=== PATIENT | female | born 1960 | race Caucasian/White ===

== ENCOUNTER 2020-02-25 13:00 | Outpatient (REF) | payer OTHER, SELFPAY ==
[2020-02-25 15:24] LABS: MANUAL DIFF FLAG NO
[2020-02-25 15:33] LABS: Basophils Absolute Auto 0.1 X10*3/uL (0.0-0.2); Eosinophils Absolute Auto 0.2 X10*3/uL (0.0-0.4); Eosinophils Percent Auto 2.4 % (0-4); Hematocrit 38.7 % (37-47); Hemoglobin 12.6 g/dl (12.0-16.0); Imm Gran Abs Auto 0.01 X10*3/uL (0.00-0.03); Imm Gran Pct Auto 0.1 % (0.0-0.4); Lymphocytes Absolute Auto 3.2 X10*3/uL (1.2-4.9); Lymphocytes Percent Auto 40.5 % (20-40); Mean Corpuscular HGB Conc 32.6 g/dl (31.0-35.0); Mean Corpuscular Hemoglobin 29.9 pg (27.0-33.0); Mean Corpuscular Volume 91.9 fL (80-98); Mean Platelet Volume 9.6 fL (9.4-12.3); Monocytes Absolute Auto 0.6 X10*3/uL (0.1-1.2); Monocytes Percent Auto 8.1 % (2-11); Neutrophils Absolute Auto 3.8 X10*3/uL (2.0-8.3); Neutrophils Percent Auto 47.9 % (45-73); Platelet Count 258 X10*3/uL (160-400); Red Blood Count 4.21 X10*6/uL (4.20-5.50); Red Cell Distribution Width 12.5 % (11.0-16.0); White Blood Count 7.9 X10*3/uL (4.8-10.8)
[2020-02-25 16:00] LABS: Alanine Aminotransferase 16 U/L (0-31); Albumin Level 4.4 g/dL (3.5-5.0); Alkaline Phosphatase 98 U/L (39-117); Anion Gap 11 (12-20); Aspartate Amino Transferase 18 U/L (5-31); Bilirubin Total 0.4 mg/dL (0.0-1.0); Blood Urea Nitrogen 13 mg/dL (9-16); C Reactive Protein 0.12 mg/dL (< or = 0.50); Calcium 9.5 mg/dL (8.4-10.2); Carbon Dioxide 28 mmol/L (22-29); Chloride 106 mmol/L (96-108); Estimated Glomerular Filt Rate > 60; Glucose Random 90 mg/dL (60-115); Potassium 4.7 mmol/l (3.3-5.1); Sodium 140 mmol/L (135-145); Total Protein 7.1 g/dL (6.5-8.0)
[2020-02-25 16:56] LABS: Erythrocyte Sedimentation Rate 11 MM/HR (0-20)
== END 2020-02-25 13:01 | disposition home or self-care (01) ==
LOC: HO.LAB 13:00
PROVIDERS: PCP Nurse Practitioner Family; Referring Provider Nurse Practitioner Family; Visit Provider Student in an Organized Health Care Education/Training Program
DX: M06.00 Rheumatoid arthritis without rheumatoid factor, unspecified site (principal); R76.8 Other specified abnormal immunological findings in serum; E55.9 Vitamin D deficiency, unspecified; M54.9 Dorsalgia, unspecified; Z87.891 Personal history of nicotine dependence; Z79.899 Other long term (current) drug therapy
CPT/HCPCS: 36415; 80053; 85025; 85652; 86140; 99212

== ENCOUNTER 2020-02-27 09:12 | Outpatient (REF) | payer OTHER, SELFPAY ==
--- NOTE | 2020-02-27 09:14 | XR_ITS ---
EXAMINATION: XR THORACOLUMBAR SPINE CLINICAL INFORMATION: M54.9 - Dorsalgia, unspecified COMPARISON: Radiographs cervical spine and lumbar spine 02/27/2020 TECHNIQUE: AP and lateral views thoracic spine are obtained. FINDINGS: There is normal thoracic segmentation with 12 rib-bearing thoracic vertebrae of normal height and normal thoracic kyphosis. There is no thoracic vertebral compression, spondylolisthesis, destructive process, or paraspinal soft tissue swelling. There is mild degenerative disc changes with borderline disc narrowing and multilevel vertebral spurring, greatest anteriorly at approximately T9-T10. XR/XR thoracic spine 2V IMPRESSION: 1. Thoracic vertebral spurring. Mild degenerative disc changes. 2. No thoracic vertebral compression, spondylolisthesis, destructive process.
--- NOTE | 2020-02-27 09:17 | XR_ITS ---
EXAMINATION: XR LUMBOSACRAL SPINE CLINICAL INFORMATION: M54.9 - Dorsalgia, unspecified COMPARISON: Dorsal spine 02/27/2020 TECHNIQUE: Three views of the lumbosacral spine. FINDINGS: There is normal lumbar segmentation with 5 nonrib-bearing lumbar vertebrae of normal height and normal lumbar lordosis. There is no lumbar vertebral compression, spondylolisthesis, or focal disc narrowing. No destructive process. There are mild degenerative changes lumbosacral facets. The SI joints and visualized sacrum are unremarkable. XR/XR lumbar spine 2-3V IMPRESSION: 1. No lumbar vertebral compression, spondylolisthesis, or focal disc narrowing. 2. Mild facet degeneration lumbosacral junction.
--- NOTE | 2020-02-27 09:17 | XR_ITS ---
EXAMINATION: XR CERVICAL SPINE CLINICAL INFORMATION: M54.9 - Dorsalgia, unspecified COMPARISON: Thoracic spine 02/27/2020 TECHNIQUE: Cervical spine is imaged in 4 views: AP, lateral, odontoid, Fuchs. FINDINGS: There are multilevel degenerative disc changes with disc narrowing and endplate sclerosis and vertebral spurring C4-C5, C5-C6, and C6-C7. There are associated partially bridging anterior osteophytes and smaller posterior osteophytes at these levels. 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 There is a mild spondylolisthesis at C2-C3 of under 3 mm. The vertebral bodies are normal in height. There is no vertebral compression or destructive process or prevertebral soft tissue swelling. The odontoid appears intact. XR/XR cervical spine 2V IMPRESSION: 1. Degenerative disc changes C4-C7. 2. Partial fusion C3-C4. 3. Borderline spondylolisthesis C2-C3, under 3 mm.
== END 2020-02-27 09:13 | disposition home or self-care (01) ==
LOC: HO.XRAY 09:12
PROVIDERS: Visit Provider Student in an Organized Health Care Education/Training Program
DX: M54.9 Dorsalgia, unspecified (principal)
CPT/HCPCS: 72040; 72070; 72100

== ENCOUNTER 2020-08-06 09:09 | Outpatient (REF) | payer OTHER, SELFPAY ==
[2020-08-06 11:08] LABS: MANUAL DIFF FLAG NO
[2020-08-06 11:17] LABS: Basophils Absolute Auto 0.1 X10*3/uL (0.0-0.2); Eosinophils Absolute Auto 0.2 X10*3/uL (0.0-0.4); Eosinophils Percent Auto 2.9 % (0-4); Hematocrit 38.2 % (37-47); Hemoglobin 12.8 g/dl (12.0-16.0); Imm Gran Abs Auto 0.02 X10*3/uL (0.00-0.03); Imm Gran Pct Auto 0.2 % (0.0-0.4); Lymphocytes Absolute Auto 2.8 X10*3/uL (1.2-4.9); Lymphocytes Percent Auto 33.7 % (20-40); Mean Corpuscular HGB Conc 33.5 g/dl (31.0-35.0); Mean Corpuscular Volume 89.7 fL (80-98); Monocytes Absolute Auto 0.5 X10*3/uL (0.1-1.2); Monocytes Percent Auto 5.5 % (2-11); Neutrophils Absolute Auto 4.8 X10*3/uL (2.0-8.3); Neutrophils Percent Auto 56.7 % (45-73); Platelet Count 244 X10*3/uL (160-400); Red Blood Count 4.26 X10*6/uL (4.20-5.50); Red Cell Distribution Width 12.6 % (11.0-16.0); White Blood Count 8.4 X10*3/uL (4.8-10.8)
[2020-08-06 11:33] LABS: Alanine Aminotransferase 14 U/L (0-31); Albumin Level 4.3 g/dL (3.5-5.0); Alkaline Phosphatase 89 U/L (39-117); Anion Gap 12 (12-20); Aspartate Amino Transferase 14 U/L (5-31); Bilirubin Total 0.4 mg/dL (0.0-1.0); Blood Urea Nitrogen 24 mg/dL (9-16); C Reactive Protein 0.11 mg/dL (< or = 0.50); Calcium 9.4 mg/dL (8.4-10.2); Carbon Dioxide 27 mmol/L (22-29); Chloride 107 mmol/L (96-108); Estimated Glomerular Filt Rate > 60; Glucose Random 94 mg/dL (60-115); Potassium 4.2 mmol/L (3.3-5.1); Sodium 142 mmol/L (135-145)
[2020-08-06 12:28] LABS: Erythrocyte Sedimentation Rate 7 MM/HR (0-20)
== END 2020-08-06 09:10 | disposition home or self-care (01) ==
LOC: HO.LAB 09:09
PROVIDERS: PCP Nurse Practitioner Family; Visit Provider Student in an Organized Health Care Education/Training Program
DX: M06.00 Rheumatoid arthritis without rheumatoid factor, unspecified site (principal); R20.0 Anesthesia of skin; E55.9 Vitamin D deficiency, unspecified; Z83.79 Family history of other diseases of the digestive system; Z87.891 Personal history of nicotine dependence; Z90.710 Acquired absence of both cervix and uterus; Z79.899 Other long term (current) drug therapy
CPT/HCPCS: 36415; 80053; 85025; 85652; 86140; 99212

== ENCOUNTER 2021-02-04 14:16 | Outpatient (REF) | payer OTHER, SELFPAY ==
[2021-02-04 14:47] LABS: MANUAL DIFF FLAG NO
[2021-02-04 15:25] LABS: Basophils Absolute Auto 0.1 X10*3/uL (0.0-0.2); Eosinophils Absolute Auto 0.2 X10*3/uL (0.0-0.4); Eosinophils Percent Auto 2.6 % (0-4); Hematocrit 39.1 % (37-47); Hemoglobin 12.9 g/dl (12.0-16.0); Imm Gran Abs Auto 0.02 X10*3/uL (0.00-0.03); Imm Gran Pct Auto 0.2 % (0.0-0.4); Lymphocytes Absolute Auto 3.8 X10*3/uL (1.2-4.9); Lymphocytes Percent Auto 45.4 % (20-40); Mean Corpuscular Hemoglobin 29.7 pg (27.0-33.0); Mean Corpuscular Volume 89.9 fL (80-98); Mean Platelet Volume 9.3 fL (9.4-12.3); Monocytes Absolute Auto 0.6 X10*3/uL (0.1-1.2); Monocytes Percent Auto 7.1 % (2-11); Neutrophils Absolute Auto 3.7 X10*3/uL (2.0-8.3); Neutrophils Percent Auto 43.7 % (45-73); Platelet Count 304 X10*3/uL (160-400); Red Blood Count 4.35 X10*6/uL (4.20-5.50); Red Cell Distribution Width 12.5 % (11.0-16.0); White Blood Count 8.4 X10*3/uL (4.8-10.8)
[2021-02-04 15:43] LABS: Alanine Aminotransferase 15 U/L (0-31); Albumin Level 4.4 g/dL (3.5-5.0); Alkaline Phosphatase 100 U/L (39-117); Anion Gap 12 (12-20); Aspartate Amino Transferase 15 U/L (5-31); Bilirubin Total 0.3 mg/dL (0.0-1.0); Blood Urea Nitrogen 17 mg/dL (9-16); C Reactive Protein 0.18 mg/dL (< or = 0.50); Calcium 10.1 mg/dL (8.4-10.2); Carbon Dioxide 27 mmol/L (22-29); Chloride 107 mmol/L (96-108); Estimated Glomerular Filt Rate > 60; Glucose Random 94 mg/dL (60-115); Potassium 4.6 mmol/L (3.3-5.1); Sodium 141 mmol/L (135-145); Total Protein 7.4 g/dL (6.5-8.0)
[2021-02-04 16:29] LABS: Erythrocyte Sedimentation Rate 12 MM/HR (0-20)
== END 2021-02-04 14:17 | disposition home or self-care (01) ==
LOC: HO.LAB 14:16
PROVIDERS: PCP Nurse Practitioner Family; Visit Provider Nurse Practitioner Family
DX: M06.00 Rheumatoid arthritis without rheumatoid factor, unspecified site (principal)
CPT/HCPCS: 36415; 80053; 85025; 85652; 86140

== ENCOUNTER → 2021-03-10 12:13 | Outpatient (BNVA) | payer OTHER, SELFPAY | PROVIDERS: PCP Nurse Practitioner Family; Visit Provider Nurse Practitioner Family | DX: M54.9 Dorsalgia, unspecified (principal); M06.00 Rheumatoid arthritis without rheumatoid factor, unspecified site; R20.0 Anesthesia of skin; Z79.899 Other long term (current) drug therapy | CPT/HCPCS: 99212 ==

== ENCOUNTER 2021-04-22 07:41 | Outpatient (REF) | payer OTHER, SELFPAY ==
--- NOTE | 2021-04-22 07:47 | EMG_ITS ---
Bilateral median and ulnar motor and sensory studies were performed. Bilateral radial sensory studies were performed and paraspinal muscles were tested with a needle. IMPRESSION: 1. [id number] bilateral median neuropathy across carpal tunnel, which was somewhat more pronounced in the right hand. 2. Mild bilateral ulnar neuropathy across elbow. MD ALMA Horta/JANESSA / [id number]
== END 2021-04-22 07:42 | disposition home or self-care (01) ==
LOC: HO.NEURO 07:41
PROVIDERS: Visit Provider Student in an Organized Health Care Education/Training Program
DX: R20.0 Anesthesia of skin (principal); G56.13 Other lesions of median nerve, bilateral upper limbs; G56.23 Lesion of ulnar nerve, bilateral upper limbs
CPT/HCPCS: 95886; 95911

== ENCOUNTER 2021-06-07 10:27 | Outpatient (REF) | payer OTHER, SELFPAY ==
[2021-06-07 10:53] LABS: MANUAL DIFF FLAG NO
[2021-06-07 11:16] LABS: Basophils Absolute Auto 0.1 X10*3/uL (0.0-0.2); Basophils Percent Auto 0.7 % (0-2); Eosinophils Absolute Auto 0.3 X10*3/uL (0.0-0.4); Eosinophils Percent Auto 2.5 % (0-4); Hemoglobin 13.3 g/dl (12.0-16.0); Imm Gran Abs Auto 0.04 X10*3/uL (0.00-0.03); Imm Gran Pct Auto 0.4 % (0.0-0.4); Lymphocytes Absolute Auto 4.2 X10*3/uL (1.2-4.9); Lymphocytes Percent Auto 40.6 % (20-40); Mean Corpuscular HGB Conc 32.4 g/dl (31.0-35.0); Mean Corpuscular Hemoglobin 29.2 pg (27.0-33.0); Mean Corpuscular Volume 90.1 fL (80.0-98.0); Mean Platelet Volume 9.1 fL (9.4-12.3); Monocytes Absolute Auto 0.7 X10*3/uL (0.1-1.2); Monocytes Percent Auto 7.2 % (2-11); Neutrophils Percent Auto 48.6 % (45-73); Platelet Count 280 X10*3/uL (160-400); Red Blood Count 4.55 X10*6/uL (4.20-5.50); Red Cell Distribution Width 12.9 % (11.0-16.0); White Blood Count 10.3 X10*3/uL (4.8-10.8)
[2021-06-07 11:45] LABS: Alanine Aminotransferase 15 U/L (0-31); Albumin Level 4.3 g/dL (3.5-5.0); Alkaline Phosphatase 88 U/L (39-117); Anion Gap 11 (12-20); Aspartate Amino Transferase 15 U/L (5-31); Bilirubin Total 0.4 mg/dL (0.0-1.0); Blood Urea Nitrogen 23 mg/dL (9-16); C Reactive Protein 0.05 mg/dL (< or = 0.50); Calcium 10.2 mg/dL (8.4-10.2); Carbon Dioxide 28 mmol/L (22-29); Chloride 105 mmol/L (96-108); Estimated Glomerular Filt Rate > 60; Glucose Random 95 mg/dL (60-115); Potassium 4.8 mmol/L (3.3-5.1); Sodium 139 mmol/L (135-145); Total Protein 7.3 g/dL (6.5-8.0)
[2021-06-07 11:53] LABS: Erythrocyte Sedimentation Rate 10 MM/HR (0-20)
== END 2021-06-07 10:28 | disposition home or self-care (01) ==
LOC: HO.LAB 10:27
PROVIDERS: Visit Provider Nurse Practitioner Family
DX: M06.00 Rheumatoid arthritis without rheumatoid factor, unspecified site (principal)
CPT/HCPCS: 36415; 80053; 85025; 85652; 86140

== ENCOUNTER → 2021-06-10 09:42 | Outpatient (BNVA) | payer OTHER, SELFPAY | PROVIDERS: PCP Nurse Practitioner Family; Visit Provider Nurse Practitioner Family | DX: M06.00 Rheumatoid arthritis without rheumatoid factor, unspecified site (principal); M54.9 Dorsalgia, unspecified; R20.0 Anesthesia of skin; Z79.899 Other long term (current) drug therapy | CPT/HCPCS: 99212 ==

== ENCOUNTER 2021-08-31 11:21 | Outpatient (REF) | payer OTHER, SELFPAY ==
[2021-08-31 11:30] LABS: MANUAL DIFF FLAG NO
[2021-08-31 12:10] LABS: Basophils Absolute Auto 0.1 X10*3/uL (0.0-0.2); Basophils Percent Auto 1.3 % (0-2); Eosinophils Absolute Auto 0.3 X10*3/uL (0.0-0.4); Eosinophils Percent Auto 4.1 % (0-4); Hematocrit 39.9 % (37.0-47.0); Hemoglobin 12.8 g/dl (12.0-16.0); Imm Gran Abs Auto 0.02 X10*3/uL (0.00-0.03); Imm Gran Pct Auto 0.3 % (0.0-0.4); Lymphocytes Absolute Auto 2.8 X10*3/uL (1.2-4.9); Lymphocytes Percent Auto 36.9 % (20-40); Mean Corpuscular HGB Conc 32.1 g/dl (31.0-35.0); Mean Corpuscular Hemoglobin 29.4 pg (27.0-33.0); Mean Corpuscular Volume 91.7 fL (80.0-98.0); Mean Platelet Volume 9.5 fL (9.4-12.3); Monocytes Absolute Auto 0.6 X10*3/uL (0.1-1.2); Monocytes Percent Auto 7.6 % (2-11); Neutrophils Absolute Auto 3.8 x10*3/uL (2.0-8.3); Neutrophils Percent Auto 49.8 % (45-73); Platelet Count 273 X10*3/uL (160-400); Red Blood Count 4.35 X10*6/uL (4.20-5.50); Red Cell Distribution Width 13.8 % (11.0-16.0); White Blood Count 7.7 X10*3/uL (4.8-10.8)
[2021-08-31 12:44] LABS: Alanine Aminotransferase 23 U/L (0-31); Albumin Level 4.3 g/dL (3.5-5.0); Alkaline Phosphatase 94 U/L (39-117); Anion Gap 12 (12-20); Aspartate Amino Transferase 20 U/L (5-31); Bilirubin Total 0.4 mg/dL (0.0-1.0); Blood Urea Nitrogen 15 mg/dL (9-16); C Reactive Protein 0.09 mg/dL (< or = 0.50); Calcium 10.3 mg/dL (8.4-10.2); Carbon Dioxide 30 mmol/L (22-29); Chloride 105 mmol/L (96-108); Estimated Glomerular Filt Rate > 60; Glucose Random 81 mg/dL (60-115); Potassium 4.6 mmol/L (3.3-5.1); Sodium 142 mmol/L (135-145); Total Protein 7.1 g/dL (6.5-8.0)
[2021-08-31 13:02] LABS: Erythrocyte Sedimentation Rate 10 MM/HR (0-20)
== END 2021-08-31 11:22 | disposition home or self-care (01) ==
LOC: HO.LAB 11:21
PROVIDERS: PCP Nurse Practitioner Family; Visit Provider Nurse Practitioner Family
DX: M06.00 Rheumatoid arthritis without rheumatoid factor, unspecified site (principal)
CPT/HCPCS: 36415; 80053; 85025; 85652; 86140

== ENCOUNTER 2021-09-08 10:20 | Outpatient (REF) | payer OTHER, SELFPAY ==
[2021-09-08 12:08] LABS: Alanine Aminotransferase 43 U/L (0-31); Albumin Level 4.2 g/dL (3.5-5.0); Alkaline Phosphatase 92 U/L (39-117); Anion Gap 11 (12-20); Aspartate Amino Transferase 26 U/L (5-31); Bilirubin Total 0.3 mg/dL (0.0-1.0); Blood Urea Nitrogen 21 mg/dL (9-16); Calcium 10.1 mg/dL (8.4-10.2); Carbon Dioxide 27 mmol/L (22-29); Chloride 107 mmol/L (96-108); Estimated Glomerular Filt Rate > 60; Glucose Random 76 mg/dL (60-115); Potassium 4.5 mmol/L (3.3-5.1); Sodium 140 mmol/L (135-145); Total Protein 6.6 g/dL (6.5-8.0)
[2021-09-09 14:46] LABS: Calcium (PTHI) 9.5 mg/dL (8.6-10.4); PTHI 30 pg/mL (16-77)
== END 2021-09-08 10:21 | disposition home or self-care (01) ==
LOC: HO.LAB 10:20
PROVIDERS: Visit Provider Nurse Practitioner Family
DX: M06.00 Rheumatoid arthritis without rheumatoid factor, unspecified site (principal); M47.9 Spondylosis, unspecified; E83.52 Hypercalcemia; R20.0 Anesthesia of skin; L98.9 Disorder of the skin and subcutaneous tissue, unspecified; Z79.899 Other long term (current) drug therapy
CPT/HCPCS: 36415; 80053; 83970; 99212

== ENCOUNTER 2021-12-10 11:03 | Outpatient (REF) | payer OTHER, SELFPAY ==
[2021-12-10 11:13] LABS: MANUAL DIFF FLAG NO
[2021-12-10 11:30] LABS: Basophils Absolute Auto 0.1 X10*3/uL (0.0-0.2); Basophils Percent Auto 0.9 % (0-2); Eosinophils Absolute Auto 0.3 X10*3/uL (0.0-0.4); Eosinophils Percent Auto 2.9 % (0-4); Hematocrit 37.6 % (37.0-47.0); Hemoglobin 12.4 g/dl (12.0-16.0); Imm Gran Abs Auto 0.03 X10*3/uL (0.00-0.03); Imm Gran Pct Auto 0.3 % (0.0-0.4); Lymphocytes Absolute Auto 2.9 X10*3/uL (1.2-4.9); Lymphocytes Percent Auto 32.6 % (20-40); Mean Corpuscular Hemoglobin 30.3 pg (27.0-33.0); Mean Corpuscular Volume 91.9 fL (80.0-98.0); Mean Platelet Volume 9.2 fL (9.4-12.3); Monocytes Absolute Auto 0.6 X10*3/uL (0.1-1.2); Monocytes Percent Auto 6.7 % (2-11); Neutrophils Percent Auto 56.6 % (45-73); Platelet Count 235 X10*3/uL (160-400); Red Blood Count 4.09 X10*6/uL (4.20-5.50); Red Cell Distribution Width 13.6 % (11.0-16.0); White Blood Count 8.9 X10*3/uL (4.8-10.8)
[2021-12-10 12:03] LABS: Alanine Aminotransferase 15 U/L (0-31); Aspartate Amino Transferase 15 U/L (5-31); C Reactive Protein 0.18 mg/dL (< or = 0.50); Estimated Glomerular Filt Rate > 60
[2021-12-10 12:45] LABS: Erythrocyte Sedimentation Rate 12 MM/HR (0-20)
== END 2021-12-10 11:04 | disposition home or self-care (01) ==
LOC: HO.LAB 11:03
PROVIDERS: Visit Provider Internal Medicine Rheumatology
DX: M06.00 Rheumatoid arthritis without rheumatoid factor, unspecified site (principal); Z79.899 Other long term (current) drug therapy
CPT/HCPCS: 36415; 82565; 84450; 84460; 85025; 85652; 86140

== ENCOUNTER → 2021-12-16 10:32 | Outpatient (BNVA) | payer OTHER, SELFPAY | PROVIDERS: PCP Nurse Practitioner Family; Visit Provider Nurse Practitioner Family | DX: M06.00 Rheumatoid arthritis without rheumatoid factor, unspecified site (principal); R20.0 Anesthesia of skin; M54.9 Dorsalgia, unspecified; E83.52 Hypercalcemia; Z79.899 Other long term (current) drug therapy | CPT/HCPCS: 99212 ==

== ENCOUNTER 2022-03-16 09:28 | Outpatient (REF) | payer OTHER, SELFPAY ==
[2022-03-16 09:46] LABS: MANUAL DIFF FLAG NO
[2022-03-16 10:32] LABS: Basophils Absolute Auto 0.1 X10*3/uL (0.0-0.2); Basophils Percent Auto 0.9 % (0-2); Eosinophils Absolute Auto 0.2 X10*3/uL (0.0-0.4); Eosinophils Percent Auto 3.1 % (0-4); Hematocrit 38.7 % (37.0-47.0); Hemoglobin 12.8 g/dl (12.0-16.0); Imm Gran Abs Auto 0.03 X10*3/uL (0.00-0.03); Imm Gran Pct Auto 0.4 % (0.0-0.4); Lymphocytes Absolute Auto 2.9 X10*3/uL (1.2-4.9); Lymphocytes Percent Auto 37.1 % (20-40); Mean Corpuscular HGB Conc 33.1 g/dl (31.0-35.0); Mean Corpuscular Volume 90.8 fL (80.0-98.0); Mean Platelet Volume 9.3 fL (9.4-12.3); Monocytes Absolute Auto 0.6 X10*3/uL (0.1-1.2); Monocytes Percent Auto 7.7 % (2-11); Neutrophils Percent Auto 50.8 % (45-73); Platelet Count 248 X10*3/uL (160-400); Red Blood Count 4.26 X10*6/uL (4.20-5.50); Red Cell Distribution Width 13.1 % (11.0-16.0); White Blood Count 7.8 X10*3/uL (4.8-10.8)
[2022-03-16 11:13] LABS: Erythrocyte Sedimentation Rate 9 MM/HR (0-20)
[2022-03-16 11:44] LABS: Alanine Aminotransferase 16 U/L (0-31); Albumin Level 4.2 g/dL (3.5-5.0); Alkaline Phosphatase 95 U/L (39-117); Anion Gap 12 (12-20); Aspartate Amino Transferase 16 U/L (5-31); Bilirubin Total 0.4 mg/dL (0.0-1.0); Blood Urea Nitrogen 18 mg/dL (9-16); C Reactive Protein 0.13 mg/dL (< or = 0.50); Calcium 9.4 mg/dL (8.4-10.2); Carbon Dioxide 27 mmol/L (22-29); Chloride 106 mmol/L (96-108); Estimated Glomerular Filt Rate > 60; Glucose Random 96 mg/dL (60-115); Potassium 4.4 mmol/L (3.3-5.1); Sodium 141 mmol/L (135-145); Total Protein 6.9 g/dL (6.5-8.0); Vitamin D 25-OH Total 35.3 ng/mL (>30)
== END 2022-03-16 09:29 | disposition home or self-care (01) ==
LOC: HO.LAB 09:28
PROVIDERS: Visit Provider Nurse Practitioner Family
DX: M06.00 Rheumatoid arthritis without rheumatoid factor, unspecified site (principal); E55.9 Vitamin D deficiency, unspecified; Z79.899 Other long term (current) drug therapy
CPT/HCPCS: 36415; 80053; 82306; 85025; 85652; 86140

== ENCOUNTER → 2022-04-12 08:21 | Outpatient (BNVA) | payer OTHER, SELFPAY | PROVIDERS: PCP Nurse Practitioner Family; Visit Provider Nurse Practitioner Family | DX: M06.00 Rheumatoid arthritis without rheumatoid factor, unspecified site (principal); M54.9 Dorsalgia, unspecified; R20.0 Anesthesia of skin; Z79.899 Other long term (current) drug therapy | CPT/HCPCS: 99212 ==

== ENCOUNTER 2022-07-05 12:31 | Outpatient (REF) | payer OTHER, SELFPAY ==
[2022-07-05 12:42] LABS: MANUAL DIFF FLAG NO
[2022-07-05 13:08] LABS: Basophils Absolute Auto 0.1 X10*3/uL (0.0-0.2); Basophils Percent Auto 0.6 % (0-2); Eosinophils Absolute Auto 0.1 X10*3/uL (0.0-0.4); Eosinophils Percent Auto 1.6 % (0-4); Hematocrit 39.6 % (37.0-47.0); Hemoglobin 12.7 g/dl (12.0-16.0); Imm Gran Abs Auto 0.03 X10*3/uL (0.00-0.03); Imm Gran Pct Auto 0.4 % (0.0-0.4); Lymphocytes Absolute Auto 2.9 X10*3/uL (1.2-4.9); Lymphocytes Percent Auto 37.5 % (20-40); Mean Corpuscular HGB Conc 32.1 g/dl (31.0-35.0); Mean Corpuscular Hemoglobin 29.5 pg (27.0-33.0); Mean Corpuscular Volume 91.9 fL (80.0-98.0); Monocytes Absolute Auto 0.5 X10*3/uL (0.1-1.2); Monocytes Percent Auto 5.8 % (2-11); Neutrophils Absolute Auto 4.2 x10*3/uL (2.0-8.3); Neutrophils Percent Auto 54.1 % (45-73); Platelet Count 234 X10*3/uL (160-400); Red Blood Count 4.31 X10*6/uL (4.20-5.50); White Blood Count 7.7 X10*3/uL (4.8-10.8)
[2022-07-05 13:43] LABS: Alanine Aminotransferase 13 U/L (0-31); Aspartate Amino Transferase 15 U/L (5-31); Estimated Glomerular Filt Rate > 60
[2022-07-05 14:04] LABS: Erythrocyte Sedimentation Rate 10 MM/HR (0-20)
== END 2022-07-05 12:32 | disposition home or self-care (01) ==
LOC: HO.LAB 12:31
PROVIDERS: PCP Internal Medicine; Visit Provider Nurse Practitioner Family
DX: M06.00 Rheumatoid arthritis without rheumatoid factor, unspecified site (principal); Z79.899 Other long term (current) drug therapy
CPT/HCPCS: 36415; 82565; 84450; 84460; 85025; 85652; 86140

== ENCOUNTER → 2022-07-08 11:22 | Outpatient (BNVA) | payer OTHER, SELFPAY | PROVIDERS: PCP Internal Medicine; Visit Provider Nurse Practitioner Family | DX: M06.00 Rheumatoid arthritis without rheumatoid factor, unspecified site (principal); M54.9 Dorsalgia, unspecified; R20.0 Anesthesia of skin; Z79.899 Other long term (current) drug therapy | CPT/HCPCS: 99212 ==

== ENCOUNTER 2022-11-03 12:45 | Outpatient (REF) | payer MEDICAID, SELFPAY | END 2022-11-03 12:46 | disposition home or self-care (01) | LOC: HO.LAB 12:45 | PROVIDERS: PCP Internal Medicine; Visit Provider Nurse Practitioner Family | DX: M06.00 Rheumatoid arthritis without rheumatoid factor, unspecified site (principal); Z79.899 Other long term (current) drug therapy | CPT/HCPCS: 80053; 80307; 80373; 85025; 85652; 86140 ==

== ENCOUNTER 2023-01-10 11:26 | Outpatient (AMB) | payer MEDICAID, SELFPAY ==
--- NOTE | 2023-01-10 11:30 | A.OFFVIS_ITS ---
Intake Vital Signs 01/10/23 11:41 Height 5 ft 3 in Weight 166 lb 0.129 oz BMI 29.4 BP 112/62 Blood Pressure Location Lt brachial Position Sitting Pulse 85 Pulse Source Pulse Oximeter Temp 98.4 F Temp Source Skin Pulse Oximetry (%) 96 Oxygen Delivery Method Room Air Intake Visit Reasons: rheumatoid arthritis/Insurance inactive Intake Note: Patient here to follow up on RA. Automotive Repair Technician Required: Yes Automotive Repair Technician Language: Jack Prizer Name: Yoana [id number] Information Interpreted: clinical only Accompanied by: Son Allergies No Known Allergies Allergy (Verified 01/10/23 11:43) Medication List - Last Reviewed 01/10/23 by OCTAVIO Arellano adalimumab (Humira(CF) Pen) 40 mg (0.4 mL) subcut Q2W atorvastatin 10 mg PO DAILY baclofen 10 mg PO BID PRN buspirone 15 mg PO TID cholecalciferol (vitamin D3) (Vitamin D3) 25 mcg PO DAILY fluoxetine 40 mg PO DAILY fluticasone propionate 50 mcg/actuation 1 spray intranasal DAILY PRN folic acid 1 mg PO DAILY hydroxyzine HCl 50 mg PO BEDTIME latanoprost 0.005% 1 drp ophthalmic (eye) BEDTIME loratadine 10 mg PO DAILY methotrexate sodium 20 mg (8 x 2.5 mg) PO QWEEK omeprazole 40 mg PO DAILY polyvinyl alcohol 1.4% 1 drp ophthalmic (eye) BID prazosin 2 mg PO BEDTIME risperidone 3 mg PO BEDTIME sennosides (senna) 17.2 mg PO BEDTIME PRN timolol maleate 0.5% 1 drp ophthalmic (eye) BID tramadol 50 mg PO BID PRN trazodone 300 mg PO BEDTIME HPI HPI Comments History of Present Illness Details The patient returns today for evaluation of her rheumatoid arthritis. Her son accompanies her and the visit was facilitated through the use of the [employer] translating service. Patient reports joints are doing fairly well. She takes occasional ibuprofen for symptoms but is comfortable with current regimen of methotrexate 20 mg weekly, folic acid 1 mg daily and Humira 40 mg every 2 weeks. She also takes occasional baclofen and tramadol mostly for cervical and lumbar pains from OA peer none of these medicines are sedating. She does not think she has had any side effects with them so far. She remains on many medications for her anxiety and depression. That seems to be stable for now. [facility]LY [facility] Medical History CHANDRAKANT positive Seronegative rheumatoid arthritis Hx of osteoarthritis CHANDRAKANT positive Family history of GERD History of vitamin D deficiency Hx of glaucoma Hx of rheumatoid arthritis Surgical History History of bilateral carpal tunnel release Hx of appendectomy Hx of hysterectomy Hx of cervical discectomy Family History Father Cancer Mother Diabetes Social History Alcohol intake: never Patient Tobacco Use Status: Never used Tobacco Review of Systems Const Details: Negative for appetite change, weight change, fever, chills, malaise and fatigue Eyes Details: Negative for vision change, dry eyes,headaches and dizziness ENT Details: Negative for hearing change, tinnitus, oral ulcer, nose bleeds and oral dryness. Card Details: Negative chest pain, edema and syncope Resp Details: Negative for SOB, cough and wheezing GI Details: Negative indigestion/heartburn, nausea, abdominal pain, bowel changes, diarrhea, constipation and bloody stool. Psych Details: Stable manifestations of anxiety, depression De/Lymph Details: Negative for excessive bruising or bleeding. Physical Exam Vital Signs: Last Vital Signs Temp 98.4 F 01/10/23 11:41 Pulse 85 01/10/23 11:41 BP 112/62 01/10/23 11:41 Pulse Ox 96 01/10/23 11:41 Oxygen Delivery Method Room Air 01/10/23 11:41 BMI result Body Mass Index 29.4 APPEARANCE: Patient in no acute distress EYES no redness, pupils equal and reactive to light, eyelids normal JOINT EXAM:? Cervical Spine: Full range of motion. Mild pain with the extremes of lateral rotation or lateral flexion. Some mild cervical muscle tenderness posteriorly. Thoracic Spine: No scoliosis.? No tenderness on palpation. Lumbar Spine: Alignment normal. No tenderness to palpation of the lumbar spine. Straight leg raising causes some lumbar pain at about 75 degrees. The lower extremity reflexes and strength seems normal. Hands:? LEFT: Normal pain-free range of motion. There is slight bony enlargement at the 2nd 3rd DIP without tenderness. Other joints have no tenderness, swelling, increased warmth or erythema. Able to make a full fist and has a good hemmer lockstitch strength. RIGHT: Normal pain-free range of motion. Slight nontender bony enlargement at the thumb IP and the 2nd, 3rd and 5th D IP joints. Other joints have no swelling, increased warmth or erythema. Able to make full fist and has good hemmer lockstitch strength. Wrists:? Normal pain-free range of motion without tenderness, swelling, increased warmth or erythema. Elbows: Normal pain-free range of motion without tenderness, swelling, increased warmth or erythema. Shoulders:??Right: Mild pain with abduction 150 degrees or with extremes of rotation. Most of this pain is felt over the trapezius and at the base of the neck. There is no anterior or posterior shoulder tenderness. No abductor weakness or adenopathy. Left: Full range of motion without pain. No tenderness, weakness, swelling, increased warmth or erythema. Hips: There is some lumbar pain with extremes of external rotation and abduction in both hips. No groin pain with motion. Hip bursa: Slight tenderness to palpation. Knees:?? Normal pain-free range of motion with some minimal patellofemoral crepitus. No effusion, tenderness, swelling, increased warmth or erythema.? Ankles: Left: Mild discomfort with extremes of AP motion and inversion/eversion. There is some mild crepitus with range of motion. There is mild medial lateral tenderness without swelling or redness. Right: Normal pain-free range of motion without tenderness, swelling, increased warmth or erythema. Feet:? Right: Slight tenderness in the 1st 3 MTP joints and in the instep but no swelling is appreciated. Left: Normal pain-free range of motion without tenderness, swelling, increased warmth or erythema. Results Reviewed Results Reviewed: [address] [address] XRay Report Signed Patient: Sandra Vargas MR#: [id number] : 1960 Acct:[id number] Age/Sex: 59 / F ADM Date: 02/27/[address]: Glory Tellez MD Ordering Physician: Glory Tellez MD Date of Service: 02/27/20 Procedure(s): XR lumbar spine 2-3V Accession Number(s): [id number] cc: Glory Tellez MD~ EXAMINATION: XR LUMBOSACRAL SPINE CLINICAL INFORMATION: M54.9 - Dorsalgia, unspecified COMPARISON: Dorsal spine 02/27/2020 TECHNIQUE: Three views of the lumbosacral spine. FINDINGS: There is normal lumbar segmentation with 5 nonrib-bearing lumbar vertebrae of normal height and normal lumbar lordosis. There is no lumbar vertebral compression, spondylolisthesis, or focal disc narrowing. No destructive process. There are mild degenerative changes lumbosacral facets. The SI joints and visualized sacrum are unremarkable. XR/XR lumbar spine 2-3V IMPRESSION: 1. No lumbar vertebral compression, spondylolisthesis, or focal disc narrowing. 2. Mild facet degeneration lumbosacral junction. Dictated By: CARTER WHITFIELD MD [address] [address] XRay Report Signed Patient: Sandra Vargas MR#: [id number] : 1960 Acct:[id number] Age/Sex: 59 / F ADM Date: 02/27/[address]: Glory Tellez MD Ordering Physician: Glory Tellez MD Date of Service: 02/27/20 Procedure(s): XR cervical spine 2V Accession Number(s): [id number] cc: Glory Tellez MD~ EXAMINATION: XR CERVICAL SPINE CLINICAL INFORMATION: M54.9 - Dorsalgia, unspecified COMPARISON: Thoracic spine 02/27/2020 TECHNIQUE: Cervical spine is imaged in 4 views: AP, lateral, odontoid, Fuchs. FINDINGS: There are multilevel degenerative disc changes with disc narrowing and endplate sclerosis and vertebral spurring C4-C5, C5-C6, and C6-C7. There are associated partially bridging anterior osteophytes and smaller posterior osteophytes at these levels. 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 There is a mild spondylolisthesis at C2-C3 of under 3 mm. The vertebral bodies are normal in height. There is no vertebral compression or destructive process or prevertebral soft tissue swelling. The odontoid appears intact. XR/XR cervical spine 2V IMPRESSION: 1. Degenerative disc changes C4-C7. 2. Partial fusion C3-C4. 3. Borderline spondylolisthesis C2-C3, under 3 mm. 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 She does not seem to have any side effects with the medications so I think that they can be continued as above. The MassPat is reviewed. She is judiciously using the tramadol for some exacerbation of back and neck pains which are due to osteoarthritis. We will continue with current treatment. She will try to get lab work today and before the next visit in about 3 months. Orders: Orders Erythrocyte Sedimentation Rate Today M06.00 - Rheumatoid arthritis without rheumatoid factor, unspecified site Alanine Aminotransferase Today M06.00 - Rheumatoid arthritis without rheumatoid factor, unspecified site, Z79.899 - Other intermodal customer service (current) drug therapy Creatinine Today M06.00 - Rheumatoid arthritis without rheumatoid factor, unspecified site, Z79.899 - Other fpc (current) drug therapy C Reactive Protein Today M06.00 - Rheumatoid arthritis without rheumatoid factor, unspecified site Aspartate Amino Transferase Today M06.00 - Rheumatoid arthritis without rheumatoid factor, unspecified site, Z79.899 - Other intermodal customer service (current) drug therapy Complete Blood Count Auto Diff Today M06.00 - Rheumatoid arthritis without rheumatoid factor, unspecified site, Z79.899 - Other intermodal customer service (current) drug therapy Medications: Refilled folic acid 1 mg PO DAILY 90 tabs 3RF M06.00 - Rheumatoid arthritis without rheumatoid factor, unspecified site Coding Level of Care Code Est Pt Level 3 (45819) Diagnoses Encounter for medication monitoring Z51.81 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
[2023-01-10 11:41] VITALS: BP 112/62; PULSE 85; TEMP 36.9; O2SAT 96; BMI 29.4
== END 2023-01-10 11:55 | disposition home or self-care (01) ==
PROVIDERS: PCP Physician Assistant; Visit Provider Internal Medicine Rheumatology
DX: Z51.81 Encounter for therapeutic drug level monitoring (principal); Z79.899 Other long term (current) drug therapy; M47.816 Spondylosis without myelopathy or radiculopathy, lumbar region; M47.812 Spondylosis without myelopathy or radiculopathy, cervical region; M06.00 Rheumatoid arthritis without rheumatoid factor, unspecified site
CPT/HCPCS: 99213

== ENCOUNTER → 2023-01-10 11:26 | Outpatient (BNVA) | payer MEDICAID, SELFPAY | PROVIDERS: PCP Internal Medicine; Visit Provider Internal Medicine Rheumatology | DX: M06.00 Rheumatoid arthritis without rheumatoid factor, unspecified site (principal); M47.816 Spondylosis without myelopathy or radiculopathy, lumbar region; M47.812 Spondylosis without myelopathy or radiculopathy, cervical region; Z79.891 Long term (current) use of opiate analgesic | CPT/HCPCS: 99212 ==

== ENCOUNTER 2023-01-18 11:11 | Outpatient (REF) | payer MEDICAID, SELFPAY ==
[2023-01-18 11:25] LABS: MANUAL DIFF FLAG NO
[2023-01-18 13:00] LABS: Basophils Absolute Auto 0.1 X10*3/uL (0.0-0.2); Eosinophils Absolute Auto 0.2 X10*3/uL (0.0-0.4); Eosinophils Percent Auto 2.9 % (0-4); Hematocrit 39.6 % (37.0-47.0); Hemoglobin 13.2 g/dl (12.0-16.0); Imm Gran Abs Auto 0.02 X10*3/uL (0.00-0.03); Imm Gran Pct Auto 0.3 % (0.0-0.4); Lymphocytes Absolute Auto 3.3 X10*3/uL (1.2-4.9); Lymphocytes Percent Auto 45.4 % (20-40); Mean Corpuscular HGB Conc 33.3 g/dl (31.0-35.0); Mean Corpuscular Hemoglobin 29.7 pg (27.0-33.0); Mean Platelet Volume 10.1 fL (9.4-12.3); Monocytes Absolute Auto 0.6 X10*3/uL (0.1-1.2); Monocytes Percent Auto 8.2 % (2-11); Neutrophils Absolute Auto 3.1 x10*3/uL (2.0-8.3); Neutrophils Percent Auto 42.2 % (45-73); Platelet Count 266 X10*3/uL (160-400); Red Blood Count 4.45 X10*6/uL (4.20-5.50); Red Cell Distribution Width 13.2 % (11.0-16.0); White Blood Count 7.3 X10*3/uL (4.8-10.8)
[2023-01-18 13:53] LABS: Erythrocyte Sedimentation Rate 10 MM/HR (0-20)
[2023-01-18 14:04] LABS: Alanine Aminotransferase 11 U/L (0-31); Aspartate Amino Transferase 15 U/L (5-31); Estimated Glomerular Filt Rate > 60
== END 2023-01-18 11:12 | disposition home or self-care (01) ==
LOC: HO.LAB 11:11
PROVIDERS: PCP Physician Assistant; Visit Provider Internal Medicine Rheumatology
DX: M06.00 Rheumatoid arthritis without rheumatoid factor, unspecified site (principal); Z79.899 Other long term (current) drug therapy
CPT/HCPCS: 36415; 82565; 84450; 84460; 85025; 85652; 86140

== ENCOUNTER 2023-04-22 09:39 | Outpatient (REF) | payer MEDICAID, SELFPAY ==
[2023-04-22 09:57] LABS: MANUAL DIFF FLAG NO
[2023-04-22 10:30] LABS: Basophils Absolute Auto 0.1 X10*3/uL (0.0-0.2); Basophils Percent Auto 1.1 % (0-2); Eosinophils Absolute Auto 0.3 X10*3/uL (0.0-0.4); Eosinophils Percent Auto 4.8 % (0-4); Hematocrit 40.2 % (37.0-47.0); Imm Gran Abs Auto 0.01 X10*3/uL (0.00-0.03); Imm Gran Pct Auto 0.1 % (0.0-0.4); Lymphocytes Percent Auto 43.2 % (20-40); Mean Corpuscular HGB Conc 32.3 g/dl (31.0-35.0); Mean Corpuscular Hemoglobin 29.5 pg (27.0-33.0); Mean Corpuscular Volume 91.4 fL (80.0-98.0); Mean Platelet Volume 9.6 fL (9.4-12.3); Monocytes Absolute Auto 0.5 X10*3/uL (0.1-1.2); Monocytes Percent Auto 7.3 % (2-11); Neutrophils Absolute Auto 3.1 x10*3/uL (2.0-8.3); Neutrophils Percent Auto 43.5 % (45-73); Platelet Count 257 X10*3/uL (160-400)
[2023-04-22 10:58] LABS: Alanine Aminotransferase 12 U/L (0-31); Aspartate Amino Transferase 16 U/L (5-31); C Reactive Protein < 0.10 mg/dL (< or = 0.50); Estimated Glomerular Filt Rate > 60
[2023-04-22 11:12] LABS: Erythrocyte Sedimentation Rate 8 MM/HR (0-20)
== END 2023-04-22 09:40 | disposition home or self-care (01) ==
LOC: HO.LAB 09:39
PROVIDERS: Visit Provider Internal Medicine Rheumatology
DX: M06.00 Rheumatoid arthritis without rheumatoid factor, unspecified site (principal); Z79.899 Other long term (current) drug therapy
CPT/HCPCS: 36415; 82565; 84450; 84460; 85025; 85652; 86140

== ENCOUNTER 2023-04-25 10:56 | Outpatient (AMB) | payer MEDICAID, SELFPAY ==
--- NOTE | 2023-04-25 10:57 | MHC.OFFVIS ---
Intake Vital Signs 04/25/23 10:58 Height 5 ft 3 in Weight 156 lb 4.924 oz BMI 27.7 BP 124/70 Blood Pressure Location Lt brachial Position Sitting Pulse 79 Pulse Source Pulse Oximeter Temp 97.7 F Temp Source Skin Pulse Oximetry (%) 96 Oxygen Delivery Method Room Air Intake Visit Reasons: ra Intake Note: Patient last seen 01.10.23, presents today for follow up and test results. Requeting refills in ALL meds due to pharmacy change. Ground Operations Crew Member Required: Yes Ground Operations Crew Member Language: Palaeontologist Name: [id number] Elmo Information Interpreted: clinical only Accompanied by: Son Allergies No Known Allergies Allergy (Verified 04/25/23 10:57) Medication List - Last Reconciled 04/25/23 by Rory Rod MD adalimumab (Humira(CF) Pen) 40 mg (0.4 mL) subcut Q2W atorvastatin 10 mg PO DAILY baclofen 10 mg PO BID PRN buspirone 15 mg PO TID cholecalciferol (vitamin D3) (Vitamin D3) 25 mcg PO DAILY fluoxetine 40 mg PO DAILY fluticasone propionate 50 mcg/actuation 1 spray intranasal DAILY PRN folic acid 1 mg PO DAILY hydroxyzine HCl 50 mg PO BEDTIME latanoprost 0.005% 1 drp ophthalmic (eye) BEDTIME loratadine 10 mg PO DAILY methotrexate sodium 20 mg (8 x 2.5 mg) PO QWEEK omeprazole 40 mg PO DAILY polyvinyl alcohol 1.4% 1 drp ophthalmic (eye) BID prazosin 2 mg PO BEDTIME risperidone 3 mg PO BEDTIME sennosides (senna) 17.2 mg PO BEDTIME PRN timolol maleate 0.5% 1 drp ophthalmic (eye) BID tramadol 50 mg PO BID PRN trazodone 300 mg PO BEDTIME HPI HPI Comments History of Present Illness Details The patient returns with her son for evaluation of her seropositive RA. We used the translating service through the iPad to facilitate the visit. The patient reports that joints have been reasonably well controlled but she still has pain in the hands and in the ankles. Symptoms are worse usually with more physical activity. She remains on the Humira 40 mg every 2 weeks, baclofen 10 mg b.i.d. p.r.n., folic acid 1 mg daily, methotrexate 20 mg once a week, and was on some tramadol 50 mg once or twice a day. A check of the MAssPat shows she has not filled the tramadol since the spring. It sounds like she was taking mostly once a day if needed. She wants to go back on the tramadol. She remains on many other medicines for her psychiatric disorder. This includes risperidone, fluoxetine, prazosin, and trazodone. She does not seem to have any side effects she thinks with her medications so far. COUNT INCLUDES THE [facility] Medical History CHANDRAKANT positive Seronegative rheumatoid arthritis Hx of osteoarthritis CHANDRAKANT positive Family history of GERD History of vitamin D deficiency Hx of glaucoma Hx of rheumatoid arthritis Surgical History History of bilateral carpal tunnel release Hx of appendectomy Hx of hysterectomy Hx of cervical discectomy Family History Father Cancer Mother Diabetes Social History Alcohol intake: never Patient Tobacco Use Status: Never used Tobacco Review of Systems Const Details: Some fatigue at times. Negative for appetite change, weight change, fever, chills, malaise Eyes Details: Negative for vision change, dry eyes,headaches and dizziness ENT Details: Negative for hearing change, tinnitus, oral ulcer, nose bleeds and oral dryness. Card Details: Negative chest pain, edema and syncope Resp Details: Negative for SOB, cough and wheezing GI Details: Negative indigestion/heartburn, nausea, abdominal pain, bowel changes, diarrhea, constipation and bloody stool. Skin/Breast Details: Negative for itching, rash, hives, Raynaud's symptoms, sun sensitivity, and skin cancer Psych Details: Negative for anxiety, depression and stress De/Lymph Details: Negative for excessive bruising or bleeding. Physical Exam Vital Signs: Last Vital Signs Temp 97.7 F 04/25/23 10:58 Pulse 79 04/25/23 10:58 BP 124/70 04/25/23 10:58 Pulse Ox 96 04/25/23 10:58 Oxygen Delivery Method Room Air 04/25/23 10:58 BMI result Body Mass Index 27.7 APPEARANCE: Patient in no acute distress EYES no redness, pupils equal and reactive to light, eyelids normal JOINT EXAM:? Cervical Spine: Full range of motion. Mild pain with the extremes of lateral rotation or lateral flexion. Some mild cervical muscle tenderness posteriorly. Thoracic Spine: No scoliosis.? No tenderness on palpation. Lumbar Spine: Alignment normal. No tenderness to palpation of the lumbar spine. Straight leg raising causes some lumbar pain at about 75 degrees. The lower extremity reflexes and strength seems normal. Hands:? LEFT: Normal pain-free range of motion. Slight tenderness at the 1st 3 MCP joints without swelling. There is slight bony enlargement at the 2nd 3rd DIP without tenderness. Other joints have no tenderness, swelling, increased warmth or erythema. Able to make a full fist and has a good sheet cutter strength. RIGHT: Normal pain-free range of motion. Mild tender occurs across the 2nd through 5th MCP joints but they do not seem to be swollen. Slight nontender bony enlargement at the thumb IP and the 2nd, 3rd and 5th DIP joints. Other joints have no swelling, increased warmth or erythema. Able to make full fist and has good sheet cutter strength. Wrists:? Normal pain-free range of motion without tenderness, swelling, increased warmth or erythema. Elbows: Normal pain-free range of motion without tenderness, swelling, increased warmth or erythema. Shoulders:??Right: Mild pain with the extremes of abduction or external rotation. Most of this pain is felt over the trapezius and at the base of the neck. There is no anterior or posterior shoulder tenderness. No abductor weakness or adenopathy. Left: Full range of motion without pain. No tenderness, weakness, swelling, increased warmth or erythema. Hips: There is some lumbar pain with extremes of external rotation and abduction in both hips. No groin pain with motion. Hip bursa: Slight tenderness to palpation. Knees:?? Normal pain-free range of motion with some minimal patellofemoral crepitus. No effusion, tenderness, swelling, increased warmth or erythema.? Ankles: Left: Mild discomfort with extremes of AP motion and inversion/eversion. There is mild medial lateral tenderness without swelling or redness. Right: Normal pain-free range of motion with slight medial and lateral tenderness but no swelling, increased warmth or erythema. Feet:? Right: Slight tenderness in the 1st 3 MTP joints and in the instep but no swelling is appreciated. Left: Normal pain-free range of motion without tenderness, swelling, increased warmth or erythema. Tender points: Mild tenderness to digital palpation at the occiput, right trapezius, left second rib, both lateral epicondyle, both knees, greater trochanter area bilaterally. ? Results Reviewed Results Reviewed: Laboratory Tests 04/22/23 09:56 WBC 7.0 Hgb 13.0 ESR 8 Creatinine 0.78 AST 16 ALT 12 C-Reactive Protein < 0.10 Assessment & Plan Assessment & Plan (1) Osteoarthritis of lumbar spine: Code(s): M47.816 - Spondylosis without myelopathy or radiculopathy, lumbar region (2) Cervical osteoarthritis: Code(s): M47.812 - Spondylosis without myelopathy or radiculopathy, cervical region (3) Encounter for medication monitoring: Comment: Tramadol pain contract updated 07/08/2022 Code(s): Z51.81 - Encounter for therapeutic drug level monitoring (4) Fibromyalgia: Code(s): M79.7 - Fibromyalgia (5) Seronegative rheumatoid arthritis: Comment: Methotrexate August 2018-present Added Humira: January 2019- present Code(s): M06.00 - Rheumatoid arthritis without rheumatoid factor, unspecified site Plan She has seropositive rheumatoid arthritis with I think good control of synovitis with current regimen. She has other pains elsewhere from cervical and lumbar osteoarthritis in many overall tender points consistent with some element of fibromyalgia. She will continue with current treatment as her lab work looks good. I will put her back on the tramadol at 1 or 2 daily if needed. I think she needs this for her OA. She is warned about potential sedating side effects. She did not seem to have a problem with the when she took it before. Follow-up in 4 months is recommended with lab work before that visit. Orders: Orders Erythrocyte Sedimentation Rate Today M06.00 - Rheumatoid arthritis without rheumatoid factor, unspecified site C Reactive Protein Today M06.00 - Rheumatoid arthritis without rheumatoid factor, unspecified site Complete Blood Count Auto Diff 1 Month M06.00 - Rheumatoid arthritis without rheumatoid factor, unspecified site, Z79.899 - Other intermediate (current) drug therapy Creatinine Today M06.00 - Rheumatoid arthritis without rheumatoid factor, unspecified site, Z79.899 - Other intermediate (current) drug therapy Alanine Aminotransferase Today M06.00 - Rheumatoid arthritis without rheumatoid factor, unspecified site, Z79.899 - Other intermodal customer service (current) drug therapy Aspartate Amino Transferase Today M06.00 - Rheumatoid arthritis without rheumatoid factor, unspecified site, Z79.899 - Other intermodal customer service (current) drug therapy Coding Level of Care Code Est Pt Level 3 (55822) Diagnoses Osteoarthritis of lumbar spine M47.816 Cervical osteoarthritis M47.812 Encounter for medication monitoring Z51.81 Fibromyalgia M79.7 Seronegative rheumatoid arthritis M06.00
[2023-04-25 10:58] VITALS: BP 124/70; PULSE 79; TEMP 36.5; O2SAT 96; BMI 27.7
== END 2023-04-25 11:31 | disposition home or self-care (01) ==
PROVIDERS: PCP Physician Assistant; Visit Provider Internal Medicine Rheumatology
DX: M47.816 Spondylosis without myelopathy or radiculopathy, lumbar region (principal); M47.812 Spondylosis without myelopathy or radiculopathy, cervical region; Z51.81 Encounter for therapeutic drug level monitoring; M79.7 Fibromyalgia; M06.00 Rheumatoid arthritis without rheumatoid factor, unspecified site
CPT/HCPCS: 99213

== ENCOUNTER → 2023-04-25 10:56 | Outpatient (BNVA) | payer MEDICAID, SELFPAY | PROVIDERS: PCP Physician Assistant; Visit Provider Internal Medicine Rheumatology | DX: M06.00 Rheumatoid arthritis without rheumatoid factor, unspecified site (principal); Z51.81 Encounter for therapeutic drug level monitoring; M79.7 Fibromyalgia; M47.816 Spondylosis without myelopathy or radiculopathy, lumbar region; M47.812 Spondylosis without myelopathy or radiculopathy, cervical region | CPT/HCPCS: 99212 ==

== ENCOUNTER 2023-09-20 09:59 | Outpatient (REF) | payer MEDICAID, SELFPAY ==
[2023-09-20 10:11] LABS: MANUAL DIFF FLAG NO
[2023-09-20 10:38] LABS: Basophils Absolute Auto 0.1 X10*3/uL (0.0-0.2); Basophils Percent Auto 1.1 % (0-2); Eosinophils Absolute Auto 0.3 X10*3/uL (0.0-0.4); Eosinophils Percent Auto 3.5 % (0-4); Hematocrit 37.2 % (37.0-47.0); Hemoglobin 12.5 g/dl (12.0-16.0); Imm Gran Abs Auto 0.01 X10*3/uL (0.00-0.03); Imm Gran Pct Auto 0.1 % (0.0-0.4); Lymphocytes Absolute Auto 3.1 X10*3/uL (1.2-4.9); Lymphocytes Percent Auto 37.6 % (20-40); Mean Corpuscular HGB Conc 33.6 g/dl (31.0-35.0); Mean Corpuscular Volume 89.2 fL (80.0-98.0); Mean Platelet Volume 8.7 fL (9.4-12.3); Monocytes Absolute Auto 0.6 X10*3/uL (0.1-1.2); Monocytes Percent Auto 6.6 % (2-11); Neutrophils Absolute Auto 4.2 x10*3/uL (2.0-8.3); Neutrophils Percent Auto 51.1 % (45-73); Platelet Count 303 X10*3/uL (160-400); Red Blood Count 4.17 X10*6/uL (4.20-5.50); Red Cell Distribution Width 12.2 % (11.0-16.0); White Blood Count 8.3 X10*3/uL (4.8-10.8)
[2023-09-20 11:21] LABS: Erythrocyte Sedimentation Rate 26 MM/HR (0-20)
[2023-09-20 11:24] LABS: Alanine Aminotransferase 11 U/L (0-31); Aspartate Amino Transferase 14 U/L (5-31); C Reactive Protein 0.67 mg/dL (< or = 0.50); Estimated Glomerular Filt Rate > 60
== END 2023-09-20 10:00 | disposition home or self-care (01) ==
LOC: HO.LAB 09:59
PROVIDERS: PCP Physician Assistant; Visit Provider Nurse Practitioner Family
DX: M06.00 Rheumatoid arthritis without rheumatoid factor, unspecified site (principal); Z79.899 Other long term (current) drug therapy
CPT/HCPCS: 36415; 82565; 84450; 84460; 85025; 85652; 86140

== ENCOUNTER 2023-10-12 10:25 | Outpatient (AMB) | payer MEDICAID, SELFPAY ==
--- NOTE | 2023-10-12 10:48 | A.OFFVIS_ITS ---
Vital Signs 10/12/23 10:49 Height 5 ft 3 in Weight 154 lb 5.177 oz BMI 27.3 BP 130/72 Blood Pressure Location Rt brachial Position Sitting Pulse 76 Pulse Source Pulse Oximeter Pulse Oximetry (%) 97 Oxygen Delivery Method Room Air Intake Visit Reasons: RA/OA/FM Intake Note: Patient last seen 04/25/[address] Rod, presents today for follow up. Reports lots of pain and inflammation in back, neck and shoulders. Panel Sewer Required: Yes Panel Sewer Language: [employer] Manager Name: Loretta Savage Accompanied by: Son Allergies No Known Allergies Allergy (Verified 10/12/23 10:50) HPI Comments Details: Ms. Vargas returns with her son for follow-up of her seropositive RA. We used the translating service through the iPad to facilitate the visit. The patient reports that joints have been reasonably well controlled but she still has pain in the hands and in the ankles. Symptoms are worse usually with more physical activity. She remains on the Humira 40 mg every 2 weeks, folic acid 1 mg daily, methotrexate 20 mg once a week, and some Tramadol 50 mg once or twice a day prn. She went to the ER on 10/06/2023 for very stronger neck pain stronger than normal. She is actually not taking the baclofen A check of the [facility] shows she has not filled the tramadol since the spring. She remains on many other medicines for her psychiatric disorder. This includes risperidone, fluoxetine, prazosin, and trazodone. She does not seem to have any side effects she thinks with her medications so far. 04/25/2023 Dr. Rod: The patient returns with her son for evaluation of her seropositive RA. We used the translating service through the iPad to facilitate the visit. The patient reports that joints have been reasonably well controlled but she still has pain in the hands and in the ankles. Symptoms are worse usually with more physical activity. She remains on the Humira 40 mg every 2 weeks, baclofen 10 mg b.i.d. p.r.n., folic acid 1 mg daily, methotrexate 20 mg once a week, and was on some tramadol 50 mg once or twice a day. A check of the MAssPat shows she has not filled the tramadol since the spring. It sounds like she was taking mostly once a day if needed. She wants to go back on the tramadol. She remains on many other medicines for her psychiatric disorder. This includes risperidone, fluoxetine, prazosin, and trazodone. She does not seem to have any side effects she thinks with her medications so far. [facility] Medical History CHANDRAKANT positive Seronegative rheumatoid arthritis Hx of osteoarthritis CHANDRAKANT positive Family history of GERD History of vitamin D deficiency Hx of glaucoma Hx of rheumatoid arthritis Surgical History History of bilateral carpal tunnel release Hx of appendectomy Hx of hysterectomy Hx of cervical discectomy Family History Father Cancer Mother Diabetes Social History Alcohol intake: never Patient Tobacco Use Status: Never used Tobacco Review of Systems Const All systems reviewed & are unremarkable except as noted in HPI and below Physical Exam Vital Signs: Last Vital Signs Pulse 76 10/12/23 10:49 BP 130/72 10/12/23 10:49 Pulse Ox 97 10/12/23 10:49 Oxygen Delivery Method Room Air 10/12/23 10:49 BMI result Body Mass Index 27.3 APPEARANCE: Patient in no acute distress EYES no redness, eyelids normal JOINT EXAM:? Cervical Spine: Full range of motion. Mild pain with the extremes of lateral rotation or lateral flexion. Very sever cervical, upper back muscle tenderness posteriorly. Thoracic Spine: No scoliosis.? No tenderness on palpation. Lumbar Spine: Alignment normal. No tenderness to palpation of the lumbar spine. Straight leg raising causes some lumbar pain at about 75 degrees. The lower extremity reflexes and strength seems normal. Hands:? LEFT: Normal pain-free range of motion. Slight tenderness at the 1st 3 MCP joints without swelling. There is slight bony enlargement at the 2nd 3rd DIP without tenderness. Other joints have no tenderness, swelling, increased warmth or erythema. 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 RIGHT: Normal pain-free range of motion. Mild tender occurs across the 2nd through 5th MCP joints but they do not seem to be swollen. Slight nontender bony enlargement at the thumb IP and the 2nd, 3rd and 5th DIP joints. Other joints have no swelling, increased warmth or erythema. Able to make full fist and has good employment office clerk strength. Wrists:? Normal pain-free range of motion without tenderness, swelling, increased warmth or erythema. Elbows: Normal pain-free range of motion without tenderness, swelling, increased warmth or erythema. Shoulders:??Right: Mild pain with the extremes of abduction or external rotation. Most of this pain is felt over the trapezius and at the base of the neck. There is no anterior or posterior shoulder tenderness. No abductor weakness or adenopathy. Left: Full range of motion without pain. No tenderness, weakness, swelling, increased warmth or erythema. Hips: There is some lumbar pain with extremes of external rotation and abduction in both hips. No groin pain with motion. Hip bursa: Slight tenderness to palpation. Knees:?? Normal pain-free range of motion with some minimal patellofemoral crepitus. No effusion, tenderness, swelling, increased warmth or erythema.? Ankles: Left: Mild discomfort with extremes of AP motion and inversion/eversion. There is mild medial lateral tenderness without swelling or redness. Right: Normal pain-free range of motion with slight medial and lateral tenderness but no swelling, increased warmth or erythema. Feet:? Right: Slight tenderness in the 1st 3 MTP joints and in the instep but no swelling is appreciated. Left: Normal pain-free range of motion without tenderness, swelling, increased warmth or erythema. Tender points: Mild tenderness to digital palpation at the occiput, right trapezius, left second rib, both lateral epicondyle, both knees, greater trochanter area bilaterally. ? Results Reviewed Results Reviewed: Laboratory Tests 09/20/23 10:08 ESR 26 H Creatinine 0.71 Estimated GFR > 60 AST 14 ALT 11 C-Reactive Protein 0.67 H Assessment & Plan Assessment & Plan (1) Osteoarthritis of lumbar spine: Code(s): M47.816 - Spondylosis without myelopathy or radiculopathy, lumbar region Category: Medical Qualifiers: Spinal osteoarthritis complication: with radiculopathy Qualified Code(s): M47.26 - Other spondylosis with radiculopathy, lumbar region (2) Cervical osteoarthritis: Code(s): M47.812 - Spondylosis without myelopathy or radiculopathy, cervical region Category: Medical Qualifiers: Spinal osteoarthritis complication: with radiculopathy Qualified Code(s): M47.22 - Other spondylosis with radiculopathy, cervical region (3) Encounter for medication monitoring: Comment: Tramadol pain contract updated 07/08/2022 Code(s): Z51.81 - Encounter for therapeutic drug level monitoring Category: Medical (4) Fibromyalgia: Code(s): M79.7 - Fibromyalgia Category: Medical (5) Seronegative rheumatoid arthritis: Comment: Methotrexate August 2018-present Added Humira: January 2019- present Code(s): M06.00 - Rheumatoid arthritis without rheumatoid factor, unspecified site Category: Medical (6) intermediate methotrexate user: Code(s): Z79.899 - Other senior care (current) drug therapy Category: Medical Plan #SeroPos RA: It appears she has good control of synovitis with current regimen. She will continue with current treatment as her lab work looks good. She can continue tramadol at 1 or 2 daily if needed. I think she needs this for her OA. She is warned about potential sedating side effects. #Malt House Loader Use: Labs are ok to continue medications. CBC and CMP one week before next visit. Patient knows to hold HUMIRA and MTX for fevers, infection, surgery and non-healing wound #FM/Neck and Muscle Spasms: The strong muscle spasms caused her to go into the ER so I wondered if she had tried taking the baclofen. prior to going. However, patient was not taking as needed and realize that she is not receiving the medication. I will represcribe Baclofen. Discussed and demonstrated to patient the benefit of stretching (especially to upper and lower back) and heat Follow-up in 4 months is recommended with lab work before that visit. I spent 35 minutes reviewing history,evaluating patient and documenting Orders: Orders Erythrocyte Sedimentation Rate Today M06.00 - Rheumatoid arthritis without rheumatoid factor, unspecified site, Z79.899 - Other buttermilk drier operator (current) drug therapy Complete Blood Count Auto Diff Today M06.00 - Rheumatoid arthritis without rheumatoid factor, unspecified site, Z79.899 - Other senior care (current) drug therapy Comprehensive Met. Panel Today M06.00 - Rheumatoid arthritis without rheumatoid factor, unspecified site, Z79.899 - Other buttermilk drier operator (current) drug therapy C Reactive Protein Today M06.00 - Rheumatoid arthritis without rheumatoid factor, unspecified site, Z79.899 - Other senior care (current) drug therapy Medications: Refilled baclofen 10 mg PO BID PRN 60 tabs 1RF for pain M54.9 - Dorsalgia, unspecified folic acid 1 mg PO DAILY 90 tabs 3RF M06.00 - Rheumatoid arthritis without rheumatoid factor, unspecified site Coding Level of Care Code Est Pt Level 4 (77140) Complex EM visit Add On G2211 Diagnoses Osteoarthritis of spine with radiculopathy, lumbar region M47.26 Spinal osteoarthritis complication: with radiculopathy Osteoarthritis of spine with radiculopathy, cervical region M47.22 Spinal osteoarthritis complication: with radiculopathy Encounter for medication monitoring Z51.81 Fibromyalgia M79.7 Seronegative rheumatoid arthritis 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
[2023-10-12 10:49] VITALS: BP 130/72; PULSE 76; O2SAT 97; BMI 27.3
== END 2023-10-12 11:41 | disposition home or self-care (01) ==
PROVIDERS: PCP Physician Assistant; Visit Provider Nurse Practitioner Family
DX: M47.26 Other spondylosis with radiculopathy, lumbar region (principal); M47.22 Other spondylosis with radiculopathy, cervical region; Z51.81 Encounter for therapeutic drug level monitoring; M79.7 Fibromyalgia; M06.00 Rheumatoid arthritis without rheumatoid factor, unspecified site; Z79.899 Other long term (current) drug therapy
CPT/HCPCS: 99214

== ENCOUNTER → 2023-10-12 10:25 | Outpatient (BNVA) | payer MEDICAID, SELFPAY | PROVIDERS: PCP Physician Assistant; Visit Provider Nurse Practitioner Family | DX: M06.00 Rheumatoid arthritis without rheumatoid factor, unspecified site (principal); R76.8 Other specified abnormal immunological findings in serum; M47.26 Other spondylosis with radiculopathy, lumbar region; M47.22 Other spondylosis with radiculopathy, cervical region; M79.7 Fibromyalgia; Z79.620 Long term (current) use of immunosuppressive biologic; Z79.631 Long term (current) use of antimetabolite agent; Z51.81 Encounter for therapeutic drug level monitoring | CPT/HCPCS: 99212 ==

== ENCOUNTER 2024-02-16 09:32 | Outpatient (REF) | payer MEDICAID, SELFPAY ==
[2024-02-16 11:39] LABS: MANUAL DIFF FLAG NO
[2024-02-16 12:19] LABS: Basophils Absolute Auto 0.1 X10*3/uL (0.0-0.2); Eosinophils Absolute Auto 0.2 X10*3/uL (0.0-0.4); Hemoglobin 12.9 g/dl (12.0-16.0); Imm Gran Abs Auto 0.03 X10*3/uL (0.00-0.03); Imm Gran Pct Auto 0.3 % (0.0-0.4); Lymphocytes Absolute Auto 3.2 X10*3/uL (1.2-4.9); Lymphocytes Percent Auto 36.5 % (20-40); Mean Corpuscular HGB Conc 33.1 g/dl (31.0-35.0); Mean Corpuscular Hemoglobin 29.7 pg (27.0-33.0); Mean Corpuscular Volume 89.7 fL (80.0-98.0); Mean Platelet Volume 9.3 fL (9.4-12.3); Monocytes Absolute Auto 0.7 X10*3/uL (0.1-1.2); Monocytes Percent Auto 7.4 % (2-11); Neutrophils Absolute Auto 4.7 x10*3/uL (2.0-8.3); Neutrophils Percent Auto 52.8 % (45-73); Platelet Count 285 X10*3/uL (160-400); Red Blood Count 4.35 X10*6/uL (4.20-5.50); Red Cell Distribution Width 12.8 % (11.0-16.0); White Blood Count 8.8 X10*3/uL (4.8-10.8)
[2024-02-16 13:08] LABS: Erythrocyte Sedimentation Rate 12 MM/HR (0-20)
[2024-02-16 13:32] LABS: Alanine Aminotransferase 14 U/L (0-31); Albumin Level 4.1 g/dL (3.5-5.0); Alkaline Phosphatase 84 U/L (39-117); Anion Gap 11 (12-20); Aspartate Amino Transferase 15 U/L (5-31); Bilirubin Total 0.3 mg/dL (0.0-1.0); Blood Urea Nitrogen 19 mg/dL (9-16); C Reactive Protein < 0.10 mg/dL (< or = 0.50); Calcium 9.8 mg/dL (8.4-10.2); Carbon Dioxide 27 mmol/L (22-29); Chloride 107 mmol/L (96-108); Estimated Glomerular Filt Rate > 60; Glucose Random 89 mg/dL (60-115); Potassium 4.2 mmol/L (3.3-5.1); Sodium 141 mmol/L (135-145); Total Protein 7.3 g/dL (6.5-8.0)
[2024-02-16 13:56] LABS: Rheumatoid Factor < 13.0 IU/mL (<15.0)
[2024-02-18 04:10] LABS: HBS Num1 0.21 mIU/mL (0-7.99); HBc Num1 0.08 S/CO (0.00-0.79); HBsAGNum1 0.38 S/CO (0.00-0.99); Hepatitis A Antibody IgM 0.16 Index (0-0.79); Hepatitis B Core Antibody Nonreactive (Nonreactive); Hepatitis B Surface Antigen Negative (Negative); ~HepC Num1 0.09 S/CO (0.00-0.79); ~Hepatitis A Antibody IgM Nonreactive (Nonreactive); ~Hepatitis B Surface Antibody NONREACTIVE (Nonreactive); ~Hepatitis C Antibody Nonreactive (Nonreactive)
[2024-02-19 01:13] LABS: TS Negative Control Passed; TS Panel A 1; TS Panel B 2; TS Positive Control Passed; TSpotTB Negative (Negative)
[2024-02-19 19:53] LABS: Cyclic Citrullinated Peptide <16 UNITS
== END 2024-02-16 09:33 | disposition home or self-care (01) ==
LOC: HO.LAB 09:32
PROVIDERS: PCP Physician Assistant; Visit Provider Student in an Organized Health Care Education/Training Program
DX: M06.00 Rheumatoid arthritis without rheumatoid factor, unspecified site (principal); R76.8 Other specified abnormal immunological findings in serum; M47.22 Other spondylosis with radiculopathy, cervical region; M79.7 Fibromyalgia; Z79.620 Long term (current) use of immunosuppressive biologic; Z51.81 Encounter for therapeutic drug level monitoring; Z79.899 Other long term (current) drug therapy; Z79.891 Long term (current) use of opiate analgesic
CPT/HCPCS: 36415; 80053; 85025; 85652; 86140; 86200; 86431; 86481; 86704; 86706; 86709; 86803; 87340; 99212

== ENCOUNTER 2024-02-16 09:32 | Outpatient (AMB) | payer MEDICAID, SELFPAY ==
[2024-02-16 09:35] VITALS: BP 124/72; PULSE 81; O2SAT 96; BMI 27.4
--- NOTE | 2024-02-16 09:35 | MHC.OFFVIS ---
Vital Signs 02/16/24 09:35 Height 5 ft 3 in Weight 154 lb 12.232 oz BMI 27.4 BP 124/72 Blood Pressure Location Lt brachial Position Sitting Pulse 81 Pulse Source Pulse Oximeter Pulse Oximetry (%) 96 Oxygen Delivery Method Room Air Intake Visit Reasons: RA/FM Intake Note: Patient presents today for follow up on RA/FM. She was last seen on 10/12/23 by Kamala Becerra. Evaporator Operator Molasses Name: Fern [id number] Allergies No Known Allergies Allergy (Verified 02/16/24 09:42) Medication List - Last Reconciled 02/16/24 by Gemma Muse MD adalimumab (Humira(CF) Pen) 40 mg (0.4 mL) subcut Q2W atorvastatin 10 mg PO DAILY baclofen 10 mg PO BID PRN buspirone 15 mg PO TID cholecalciferol (vitamin D3) (Vitamin D3) 25 mcg PO DAILY fluoxetine 40 mg PO DAILY fluticasone propionate 50 mcg/actuation 1 spray intranasal DAILY PRN folic acid 1 mg PO DAILY hydroxyzine HCl 50 mg PO BEDTIME latanoprost 0.005% 1 drp ophthalmic (eye) BEDTIME loratadine 10 mg PO DAILY methotrexate sodium 20 mg (8 x 2.5 mg) PO QWEEK omeprazole 40 mg PO DAILY polyvinyl alcohol 1.4% 1 drp ophthalmic (eye) BID prazosin 2 mg PO BEDTIME risperidone 3 mg PO BEDTIME sennosides (senna) 17.2 mg PO BEDTIME PRN timolol maleate 0.5% 1 drp ophthalmic (eye) BID tramadol 50 mg PO BID PRN trazodone 300 mg PO BEDTIME HPI Comments Details: Patient is a 63-year-old female with hyperlipidemia who presents for a follow-up regarding seropositive nonerosive rheumatoid arthritis. Interval History: Patient last seen 10/29/2023 with Kamala Becerra. At that time she was in remission with the joint pains attributed to her osteoarthritis. She was given tramadol p.r.n. Today patient complains of pain to her neck and upper back and muscles. Has prolonged morning stiffness 1-2 hours. But no swelling or pain to her bilateral hands. Rheumatologic History: Diagnosed with rheumatoid arthritis after presenting with inflammatory arthritis. RF and CCP negative Methotrexate August 2018-present Added Humira: January 2019- present Current Rheumatology Medication(s): Methotrexate 20 mg every week Folic acid 1 mg every day Humira 40 mg subQ every other week [facility] Medical History (Updated 02/16/24 @ 12:08 by Gemma Muse MD) Adalimumab (Humira) long-term use CHANDRAKANT positive Seronegative rheumatoid arthritis Hx of osteoarthritis CHANDRAKANT positive Family history of GERD History of vitamin D deficiency Hx of glaucoma Hx of rheumatoid arthritis Surgical History History of bilateral carpal tunnel release Hx of appendectomy Hx of hysterectomy Hx of cervical discectomy Family History Father Cancer Mother Diabetes Social History Alcohol intake: never Patient Tobacco Use Status: Never used Tobacco Review of Systems Const Details: Review of Systems Constitutional: Denies fever, chills, weight loss ENT: Denies vision changes, eye pain or eye redness, dental caries, dry mouth GI: Denies nausea, vomiting, diarrhea, abdominal pain, change in BM Pulm: Denies SOB, [place], hemoptysis, wheezing Cards: Denies chest pain, palpitations Skin: Denies Raynaud's, rash, nail changes, photosensitivity, LAUNDRY MACHINE TENDER: Denies headaches, weakness, paresthesias, recurrent falls MSK: as per HPI All other systems reviewed and are unremarkable except noted above Physical Exam Vital Signs: BMI result Body Mass Index 27.4 Physical Examination Patient well appearing and in no apparent painful distress Able to rise from chair without support. ?Gait normal. Constitutional Mucous membranes pink and moist patient alert and cooperative HEENT Conjunctiva and sclera clear. ?Pupils equal round and reactive to light. ?No lymphadenopathy. ?Normal dentition. Respiratory System Normal respiratory effort and able to speak in complete sentences. ?Clear to auscultation bilaterally. ?No crackles, rales, rhonchi, wheezes heard. Cardiac System Regular rate and rhythm. ?S1 and S2 heard no murmurs. ?Radial pulses intact bilaterally MSK No deformity, swelling, abnormalities noted to bilateral hands. ?No evidence of synovitis. ?Able to move all joints with full range of motion, without limitation. Hands:.??Normal pain-free range of motion without tenderness, swelling, increased warmth or erythema. Able to make a full fist and has a good criminal lawyer strength. Heberden's nodes noted. Mild tenderness to palpation of the DIPs. Wrists: Normal pain-free range of motion without tenderness, swelling, increased warmth or erythema. Elbows: Full range of motion without pain. No tenderness, weakness, swelling, increased warmth or erythema. Shoulders: Full range of motion without pain. No tenderness, weakness, swelling, increased warmth or erythema. Hips: Full range of motion without pain. Hip bursa:.??No tenderness. Knees:.???Normal pain-free range of motion without tenderness, swelling, increased warmth or erythema.?No effusion or crepitations Ankles:.??Normal pain-free range of motion without tenderness, swelling, increased warmth or erythema. Feet:.??Normal pain-free range of motion without tenderness, swelling, increased warmth or erythema. Tender points:??Tenderness to digital palpation the trapezius, lateral epicondyle and occiput. Results Reviewed Results Reviewed: Laboratory Tests 09/20/23 10:08 WBC 8.3 RBC 4.17 L Hgb 12.5 Hct 37.2 Plt Count 303 ESR 26 H Creatinine 0.71 AST 14 ALT 11 C-Reactive Protein 0.67 H Assessment & Plan Assessment & Plan (1) Seronegative rheumatoid arthritis: Comment: Methotrexate August 2018-present Added Humira: January 2019- present Code(s): M06.00 - Rheumatoid arthritis without rheumatoid factor, unspecified site Category: Medical Plan: #Seronegative RA Patient with seronegative rheumatoid arthritis currently in remission but this remission is confounded by osteoarthritis and fibromyalgia. I currently think her pain is related to fibromyalgia/osteoarthritis not her rheumatoid arthritis. We will continue her methotrexate and Humira at current doses. No escalation of therapy today. (2) Cervical osteoarthritis: Code(s): M47.812 - Spondylosis without myelopathy or radiculopathy, cervical region Category: Medical Qualifiers: Spinal osteoarthritis complication: with radiculopathy Qualified Code(s): M47.22 - Other spondylosis with radiculopathy, cervical region Plan: #Cervical OA Patient with cervical osteoarthritis as evidenced by x-ray done 02/27/2020 we will check flexion-extension radiographs of the neck given her history of rheumatoid arthritis. Gave patient a handout for stretches. (3) CHANDRAKANT positive: Code(s): R76.8 - Other specified abnormal immunological findings in serum Category: Medical Plan: #CHANDRAKANT positive Patient with CHANDRAKANT positive without signs or symptoms of an undifferentiated connective tissue disease currently being treated for seronegative rheumatoid arthritis. (4) prison methotrexate user: Code(s): Z79.899 - Other terminal system operator (current) drug therapy Category: Medical Plan: #Long-term Current Use of Methotrexate Discussed with patient the benefits and risks of methotrexate for managing their rheumatic condition Benefits include reduced pain, reduced mortality, maintenance of remission and reduction of flares Risks include oral ulcers, photosensitivity, hepatotoxicity, hematologic toxicity, pneumonitis, flu-like symptoms (especially day after administration), nodulosis, lymphomas ? Limit alcohol and avoid Bactrim ? 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 Which is complicating her pain. We will start gabapentin 100 mg nightly with instructions to increase up to 300 mg nightly. We will review efficacy when she returns. (7) Adalimumab (Humira) long-term use: Code(s): Z79.620 - prison (current) use of immunosuppressive biologic Category: Medical Plan: #Long-term Use of TNF Inhibitors: Humira Discussed with the patient the benefits and risks of TNF inhibitors for the management of the rheumatic condition Benefits include reduce pain, maintenance of remission and reduction of flares as well as ?progression of the disease Risks include injection sites/infusion reactions, serious infections (such as bacterial infections, opportunistic infections), malignancy, delaminating syndromes, autoimmune phenomena, CHF exacerbations, palmar plantar psoriasis and cytopenias Recommended rotating injection sites, and holding medication during and for up to 1 week after resolution of a febrile illness or open skin wound Plan I spent 35 minutes reviewing the record and labs, seeing the patient, discussing the treatment plan and documenting in the medical record Orders: Orders T Spot TB Today M06.00 - Rheumatoid arthritis without rheumatoid factor, unspecified site, R76.8 - Other specified abnormal immunological findings in serum, Z51.81 - Encounter for therapeutic drug level monitoring, Z79.899 - Other terminal system operator (current) drug therapy C Reactive Protein 4 Months M06.00 - Rheumatoid arthritis without rheumatoid factor, unspecified site, R76.8 - Other specified abnormal immunological findings in serum, Z51.81 - Encounter for therapeutic drug level monitoring, Z79.899 - Other penitentiary (current) drug therapy Complete Blood Count Auto Diff 4 Months M06.00 - Rheumatoid arthritis without rheumatoid factor, unspecified site, R76.8 - Other specified abnormal immunological findings in serum, Z51.81 - Encounter for therapeutic drug level monitoring, Z79.899 - Other terminal system operator (current) drug therapy Erythrocyte Sedimentation Rate 4 Months M06.00 - Rheumatoid arthritis without rheumatoid factor, unspecified site, R76.8 - Other specified abnormal immunological findings in serum, Z51.81 - Encounter for therapeutic drug level monitoring, Z79.899 - Other terminal system operator (current) drug therapy Rheumatoid Factor Today M06.00 - Rheumatoid arthritis without rheumatoid factor, unspecified site, R76.8 - Other specified abnormal immunological findings in serum, Z51.81 - Encounter for therapeutic drug level monitoring, Z79.899 - Other terminal system operator (current) drug therapy Comprehensive Met. Panel Today M06.00 - Rheumatoid arthritis without rheumatoid factor, unspecified site XR hand wrist LT Today M06.00 - Rheumatoid arthritis without rheumatoid factor, unspecified site XR cervical spine w flex/ext Today M06.00 - Rheumatoid arthritis without rheumatoid factor, unspecified site Hepatitis A,B,C Profile Today M06.00 - Rheumatoid arthritis without rheumatoid factor, unspecified site, R76.8 - Other specified abnormal immunological findings in serum, Z51.81 - Encounter for therapeutic drug level monitoring, Z79.899 - Other penitentiary (current) drug therapy Comprehensive Met. Panel 4 Months M06.00 - Rheumatoid arthritis without rheumatoid factor, unspecified site, R76.8 - Other specified abnormal immunological findings in serum, Z51.81 - Encounter for therapeutic drug level monitoring, Z79.899 - Other penitentiary (current) drug therapy Cyclic Citrullinated Peptide Today M06.00 - Rheumatoid arthritis without rheumatoid factor, unspecified site, R76.8 - Other specified abnormal immunological findings in serum, Z51.81 - Encounter for therapeutic drug level monitoring, Z79.899 - Other terminal system operator (current) drug therapy C Reactive Protein Today M06.00 - Rheumatoid arthritis without rheumatoid factor, unspecified site Complete Blood Count Auto Diff Today M06.00 - Rheumatoid arthritis without rheumatoid factor, unspecified site Erythrocyte Sedimentation Rate Today M06.00 - Rheumatoid arthritis without rheumatoid factor, unspecified site XR hand wrist RT Today M06.00 - Rheumatoid arthritis without rheumatoid factor, unspecified site Medications: New gabapentin Take 1 tablet at night for 2 weeks, then increase as tolerated until 3 tablets at night. 300 mg (3 x 100 mg) PO BEDTIME 90 days 270 caps 0RF M06.00 - Rheumatoid arthritis without rheumatoid factor, unspecified site, M47.22 - Other spondylosis with radiculopathy, cervical region, M47.26 - Other spondylosis with radiculopathy, lumbar region, M79.7 - Fibromyalgia, R76.8 - Other specified abnormal immunological findings in serum, Z51.81 - Encounter for therapeutic drug level monitoring, Z79.899 - Other penitentiary (current) drug therapy Coding Level of Care Code Est Pt Level 4 (11071) Diagnoses Seronegative rheumatoid arthritis M06.00 Osteoarthritis of spine with radiculopathy, cervical region M47.22 Spinal osteoarthritis complication: with radiculopathy CHANDRAKANT positive R76.8 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
== END 2024-02-16 10:13 | disposition home or self-care (01) ==
PROVIDERS: PCP Physician Assistant; Visit Provider Student in an Organized Health Care Education/Training Program
DX: M06.00 Rheumatoid arthritis without rheumatoid factor, unspecified site (principal); M47.22 Other spondylosis with radiculopathy, cervical region; R76.8 Other specified abnormal immunological findings in serum; Z79.899 Other long term (current) drug therapy; Z51.81 Encounter for therapeutic drug level monitoring; M79.7 Fibromyalgia; Z79.620 Long term (current) use of immunosuppressive biologic
CPT/HCPCS: 99214

== ENCOUNTER 2024-05-21 09:25 | Outpatient (AMB) | payer MEDICAID, SELFPAY ==
--- NOTE | 2024-05-21 09:41 | MHC.OFFVIS ---
Vital Signs 05/21/24 09:46 Height 5 ft 3 in Weight 160 lb 7.944 oz BMI 28.4 BP 130/70 Blood Pressure Location Rt brachial Position Sitting Respiration 16 Pulse 78 Pulse Source Pulse Oximeter Pulse Oximetry (%) 98 Oxygen Delivery Method Room Air Intake Visit Reasons: RA/FM Intake Note: Patient presents for RA. Research Food Technologist Required: Yes Research Food Technologist Language: Camera Repair Technician Services: Research Food Technologist Present Research Food Technologist Name: Riccardo [id number] Information Interpreted: non-clinical & clinical Allergies No Known Allergies Allergy (Verified 05/21/24 09:45) HPI Comments Details: Patient is a 63-year-old female with hyperlipidemia, 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 Interval History: Patient last seen 02/16/2024 with me. At that time her rheumatoid arthritis was in remission with no evidence of synovitis on examination however her remission is confounded by pains from osteoarthritis and fibromyalgia. Her Humira and methotrexate were continued and no escalation of therapy. Today, Patient continues so complain of back pain and muscle pain No joint swelling or prolonged AM stiffness Has not been doing the stretches Rheumatologic History: Diagnosed with rheumatoid arthritis after presenting with inflammatory arthritis. RF and CCP negative Methotrexate August 2018-present Added Humira: January 2019- present Current Rheumatology Medication(s): Methotrexate 20 mg every week Folic acid 1 mg every day Humira 40 mg subQ every other week [facility] Medical History (Updated 02/16/24 @ 12:08 by Gemma Muse MD) Adalimumab (Humira) long-term use CHANDRAKANT positive Seronegative rheumatoid arthritis Hx of osteoarthritis CHANDRAKANT positive Family history of GERD History of vitamin D deficiency Hx of glaucoma Hx of rheumatoid arthritis Surgical History History of bilateral carpal tunnel release Hx of appendectomy Hx of hysterectomy Hx of cervical discectomy Family History Father Cancer Mother Diabetes Social History Alcohol intake: never Patient Tobacco Use Status: Never used Tobacco Review of Systems Const Details: Review of Systems Constitutional: Denies fever, chills, weight loss ENT: Denies vision changes, eye pain or eye redness, dental caries, dry mouth GI: Denies nausea, vomiting, diarrhea, abdominal pain, change in BM Pulm: Denies SOB, [place], hemoptysis, wheezing Cards: Denies chest pain, palpitations Skin: Denies Raynaud's, rash, nail changes, photosensitivity, 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 ?Gait normal. Constitutional Mucous membranes pink and moist patient alert and cooperative HEENT Conjunctiva and sclera clear. ?Pupils equal round and reactive to light. ?No lymphadenopathy. ?Normal dentition. Respiratory System Normal respiratory effort and able to speak in complete sentences. ?Clear to auscultation bilaterally. ?No crackles, rales, rhonchi, wheezes heard. Cardiac System Regular rate and rhythm. ?S1 and S2 heard no murmurs. ?Radial pulses intact bilaterally MSK No deformity, swelling, abnormalities noted to bilateral hands. ?No evidence of synovitis. ?Able to move all joints with full range of motion, without limitation. Hands:.??Normal pain-free range of motion without tenderness, swelling, increased warmth or erythema. Able to make a full fist and has a good lathe hand strength. Heberden's nodes noted. Wrists: Normal pain-free range of motion without tenderness, swelling, increased warmth or erythema. Elbows: Full range of motion without pain. No tenderness, weakness, swelling, increased warmth or erythema. Shoulders: Full range of motion without pain. No tenderness, weakness, swelling, increased warmth or erythema. Hips: Full range of motion without pain. Hip bursa:.??Tenderness to bilateral bursae. Knees:.???Normal pain-free range of motion without tenderness, swelling, increased warmth or erythema.?No effusion or crepitations Ankles:.??Normal pain-free range of motion without tenderness, swelling, increased warmth or erythema. Feet:.??Normal pain-free range of motion without tenderness, swelling, increased warmth or erythema. Tender points:??Tenderness to digital palpation the trapezius, lateral epicondyle and occiput. Also tender to palpation of forearm muscles and upper arm muscles Results Reviewed Results Reviewed: Laboratory Tests 09/20/23 10:08 WBC 8.3 RBC 4.17 L Hgb 12.5 Hct 37.2 Plt Count 303 ESR 26 H Creatinine 0.71 AST 14 ALT 11 C-Reactive Protein 0.67 H Laboratory Tests 04/03/18 02/16/24 09:20 11:37 WBC 8.8 RBC 4.35 Hgb 12.9 Hct 39.0 Plt Count 285 ESR 12 Sodium 141 Potassium 4.2 Chloride 107 Carbon Dioxide 27 BUN 19 H Creatinine 0.75 AST 15 ALT 14 Alkaline Phosphatase 84 C-Reactive Protein < 0.10 Rheumatoid Factor < 13.0 Cycl Citrul Peptide IgG <16 CHANDRAKANT Screen Positive H CHANDRAKANT Titer 1:40 H XR Whole spine 01/2020 L Spine FINDINGS: There is normal lumbar segmentation with 5 nonrib-bearing lumbar vertebrae of normal height and normal lumbar lordosis. There is no lumbar vertebral compression, spondylolisthesis, or focal disc narrowing. No destructive process. There are mild degenerative changes lumbosacral facets. The SI joints and visualized sacrum are unremarkable IMPRESSION: 1. No lumbar vertebral compression, spondylolisthesis, or focal disc narrowing. 2. Mild facet degeneration lumbosacral junction. C Spine FINDINGS: There are multilevel degenerative disc changes with disc narrowing and endplate sclerosis and vertebral spurring C4-C5, C5-C6, and C6-C7. There are associated partially bridging anterior osteophytes and smaller posterior osteophytes at these levels. 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 There is a mild spondylolisthesis at C2-C3 of under 3 mm. The vertebral bodies are normal in height. There is no vertebral compression or destructive process or prevertebral soft tissue swelling. The odontoid appears intact. IMPRESSION: 1. Degenerative disc changes C4-C7. 2. Partial fusion C3-C4. 3. Borderline spondylolisthesis C2-C3, under 3 mm. T Spine FINDINGS: There is normal thoracic segmentation with 12 rib-bearing thoracic vertebrae of normal height and normal thoracic kyphosis. There is no thoracic vertebral compression, spondylolisthesis, destructive process, or paraspinal soft tissue swelling. There is mild degenerative disc changes with borderline disc narrowing and multilevel vertebral spurring, greatest anteriorly at approximately T9-T10. IMPRESSION: 1. Thoracic vertebral spurring. Mild degenerative disc changes. 2. No thoracic vertebral compression, spondylolisthesis, destructive process. Assessment & Plan Assessment & Plan (1) Seronegative rheumatoid arthritis: Comment: Methotrexate August 2018-present Added Humira: January 2019- present Code(s): M06.00 - Rheumatoid arthritis without rheumatoid factor, unspecified site Category: Medical Plan: #Seronegative RA Patient with seronegative rheumatoid arthritis currently in remission but this remission is confounded by osteoarthritis and fibromyalgia. I currently think her pain is related to fibromyalgia/osteoarthritis not her rheumatoid arthritis. We will continue her methotrexate and Humira at current doses. No escalation of therapy today. Plan - Humira 40mg SC every 2 weeks - Methotrexate 20mg every week - Folic acid 1mg daily - CBC, CMP, ESR, CRP today - RTC 4 months - Labs before next visit: CBC, CMP, ESR, CRP, Hepatitis panel and T spot (2) Fibromyalgia: Code(s): M79.7 - Fibromyalgia Category: Medical Plan: #Fibromyalgia Doing well on gabapentin and tolerating same Plan - Continue gabapentin 300mg nightly - Tramadol 50mg bid - Encouraged daily stretching and activity (3) Cervical osteoarthritis: Code(s): M47.812 - Spondylosis without myelopathy or radiculopathy, cervical region Category: Medical Qualifiers: Spinal osteoarthritis complication: with radiculopathy Qualified Code(s): M47.22 - Other spondylosis with radiculopathy, cervical region Plan: #Cervical OA Patient with cervical osteoarthritis as evidenced by x-ray done 02/27/2020. Did not do flexion-extension radiographs of the neck. Plan - XR Cspine felx and ext - Encouraged stretches (4) CHANDRAKANT positive: Code(s): R76.8 - Other specified abnormal immunological findings in serum Category: Medical Plan: #CHANDRAKANT positive Patient with CHANDRAKANT positive without signs or symptoms of an undifferentiated connective tissue disease currently being treated for seronegative rheumatoid arthritis. (5) jail methotrexate user: Code(s): Z79.899 - Other group home (current) drug therapy Category: Medical Plan: #Long-term Current Use of Methotrexate Discussed with patient the benefits and risks of methotrexate for managing their rheumatic condition Benefits include reduced pain, reduced mortality, maintenance of remission and reduction of flares Risks include oral ulcers, photosensitivity, hepatotoxicity, hematologic toxicity, pneumonitis, flu-like symptoms (especially day after administration), nodulosis, lymphomas ? Limit alcohol and avoid Bactrim ? Monitoring: ?CBC, BMP, LFTs Hepatitis serologies as needed (6) Encounter for medication monitoring: Comment: Tramadol pain contract updated 07/08/2022 Code(s): Z51.81 - Encounter for therapeutic drug level monitoring Category: Medical Plan: #jail use of Tramadol Reviewed [facility] Discuss proper use of tramadol for the management of osteoarthritis and fibromyalgia pain (7) Adalimumab (Humira) long-term use: Code(s): Z79.620 - jail (current) use of immunosuppressive biologic Category: Medical Plan: #Long-term Use of TNF Inhibitors: Humira Discussed with the patient the benefits and risks of TNF inhibitors for the management of the rheumatic condition Benefits include reduce pain, maintenance of remission and reduction of flares as well as ?progression of the disease Risks include injection sites/infusion reactions, serious infections (such as bacterial infections, opportunistic infections), malignancy, delaminating syndromes, autoimmune phenomena, CHF exacerbations, palmar plantar psoriasis and cytopenias Recommended rotating injection sites, and holding medication during and for up to 1 week after resolution of a febrile illness or open skin wound Plan I spent 35 minutes reviewing the record and labs, seeing the patient, discussing the treatment plan and documenting in the medical record Orders: Orders C Reactive Protein 4 Months M06.00 - Rheumatoid arthritis without rheumatoid factor, unspecified site Comprehensive Met. Panel 4 Months M06.00 - Rheumatoid arthritis without rheumatoid factor, unspecified site T Spot TB 4 Months M06.00 - Rheumatoid arthritis without rheumatoid factor, unspecified site Comprehensive Met. Panel Today M06.00 - Rheumatoid arthritis without rheumatoid factor, unspecified site Complete Blood Count Auto Diff 4 Months M06.00 - Rheumatoid arthritis without rheumatoid factor, unspecified site Hepatitis A,B,C Profile 4 Months M06.00 - Rheumatoid arthritis without rheumatoid factor, unspecified site Complete Blood Count Auto Diff Today M06.00 - Rheumatoid arthritis without rheumatoid factor, unspecified site C Reactive Protein Today M06.00 - Rheumatoid arthritis without rheumatoid factor, unspecified site Erythrocyte Sedimentation Rate Today M06.00 - Rheumatoid arthritis without rheumatoid factor, unspecified site Medications: Changed From methotrexate sodium 20 mg (8 x 2.5 mg) PO QWEEK 103 tabs 0RF M06.00 - Rheumatoid arthritis without rheumatoid factor, unspecified site To methotrexate sodium 20 mg (8 x 2.5 mg) PO QWEEK 90 days 104 tabs 1RF M06.00 - Rheumatoid arthritis without rheumatoid factor, unspecified site From tramadol 50 mg PO BID PRN 60 tabs 1RF pain M54.9 - Dorsalgia, unspecified To tramadol 50 mg PO BID 90 days 180 tabs 1RF pain M54.9 - Dorsalgia, unspecified Refilled adalimumab (Humira(CF) Pen) 40 mg (0.4 mL) subcut Q2W 2 ea 4RF M06.00 - Rheumatoid arthritis without rheumatoid factor, unspecified site Coding Level of Care Code Est Pt Level 4 (48943) Complex EM visit Add On G2211 Diagnoses Seronegative rheumatoid arthritis M06.00 Fibromyalgia M79.7 Osteoarthritis of spine with radiculopathy, cervical region M47.22 Spinal osteoarthritis complication: with radiculopathy CHANDRAKANT positive 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
[2024-05-21 09:46] VITALS: BP 130/70; PULSE 78; RESP 16; O2SAT 98; BMI 28.4
== END 2024-05-21 10:19 | disposition home or self-care (01) ==
PROVIDERS: PCP Physician Assistant; Visit Provider Student in an Organized Health Care Education/Training Program
DX: M06.00 Rheumatoid arthritis without rheumatoid factor, unspecified site (principal); M79.7 Fibromyalgia; M47.22 Other spondylosis with radiculopathy, cervical region; R76.8 Other specified abnormal immunological findings in serum; Z79.899 Other long term (current) drug therapy; Z51.81 Encounter for therapeutic drug level monitoring; Z79.620 Long term (current) use of immunosuppressive biologic
CPT/HCPCS: 99214

== ENCOUNTER → 2024-05-21 09:25 | Outpatient (BNVA) | payer MEDICAID, SELFPAY | PROVIDERS: PCP Physician Assistant; Visit Provider Student in an Organized Health Care Education/Training Program | DX: M06.00 Rheumatoid arthritis without rheumatoid factor, unspecified site (principal); M79.7 Fibromyalgia; M47.22 Other spondylosis with radiculopathy, cervical region; R76.8 Other specified abnormal immunological findings in serum; Z51.81 Encounter for therapeutic drug level monitoring; Z79.620 Long term (current) use of immunosuppressive biologic; Z79.899 Other long term (current) drug therapy | CPT/HCPCS: 99212 ==

== ENCOUNTER 2024-08-02 10:54 | Outpatient (REF) | payer MEDICAID, SELFPAY ==
--- NOTE | ~2024-08-02 | XR_ITS ---
EXAMINATION: XR WRIST 1-2 VIEWS RIGHT HISTORY: M06.00 - Rheumatoid arthritis without rheumatoid factor, unspecified site COMPARISON: Comparison is made with the prior examination dated 10/22/2019. FINDINGS: Four views of the right wrist including a scaphoid view are submitted. Osseous mineralization is normal. There is no fracture or dislocation. The joint spaces are preserved. The soft tissues are unremarkable. XR/XR wrist RT 2V IMPRESSION: Unremarkable examination of the right wrist. Electronically signed by: Krystian Hernandez MD 08/05/2024 01:02 PM EDT
--- NOTE | ~2024-08-02 | XR_ITS ---
EXAMINATION: XR WRIST, LEFT CLINICAL INFORMATION: M06.00 - Rheumatoid arthritis without rheumatoid factor, unspecified site COMPARISON: October 22, 2019. TECHNIQUE: PA, lateral, and oblique views of the left wrist. Scaphoid projection. FINDINGS: No acute cortical disruption or malalignment. No lytic or blastic lesions. No subcutaneous emphysema. Scaphoid view demonstrates no gross abnormality. XR/XR wrist LT 2V IMPRESSION: No acute fracture or dislocation. No change. Electronically signed by: Gigi Figueroa MD 08/05/2024 10:53 AM EDT
--- NOTE | ~2024-08-02 | XR_ITS ---
EXAMINATION: X-RAY HAND BILATERALLY, 3 VIEWS. CLINICAL INFORMATION: Rheumatoid arthritis without rheumatoid factor. TECHNIQUE: 3 views of the hands. COMPARISON: October 22, 2019. FINDINGS: Right hand: No acute cortical disruption or malalignment. 1 mm soft tissue calcification at the radial aspect proximal phalanx first digit. 1 mm calcification in the ulnar aspect of the metacarpophalangeal joints of the third and fourth digits. No lytic or blastic lesions. No joint space narrowing. No subcutaneous emphysema. No metallic or radiopaque foreign body. Left hand: No acute cortical disruption or malalignment. 3 mm well-corticated calcification radial aspect of distal interphalangeal joint fourth digit. Punctate calcifications in the ulnar aspect of the metacarpophalangeal joints of the third and fifth digits. No lytic or thick lesions. No metallic or radiopaque foreign body. XR/XR Hand Bilat min 3v IMPRESSION: Consider CPPD versus autoimmune disease. Electronically signed by: Gigi Figueroa MD 08/05/2024 10:52 AM EDT
[2024-08-02 11:06] LABS: MANUAL DIFF FLAG NO
[2024-08-02 11:33] LABS: Basophils Absolute Auto 0.1 X10*3/uL (0.0-0.2); Basophils Percent Auto 1.2 % (0-2); Eosinophils Absolute Auto 0.7 X10*3/uL (0.0-0.4); Eosinophils Percent Auto 8.4 % (0-4); Hematocrit 39.2 % (37.0-47.0); Hemoglobin 12.9 g/dl (12.0-16.0); Imm Gran Abs Auto 0.02 X10*3/uL (0.00-0.03); Imm Gran Pct Auto 0.3 % (0.0-0.4); Lymphocytes Absolute Auto 2.5 X10*3/uL (1.2-4.9); Lymphocytes Percent Auto 32.6 % (20-40); Mean Corpuscular HGB Conc 32.9 g/dl (31.0-35.0); Mean Corpuscular Hemoglobin 29.1 pg (27.0-33.0); Mean Corpuscular Volume 88.3 fL (80.0-98.0); Monocytes Absolute Auto 0.5 X10*3/uL (0.1-1.2); Monocytes Percent Auto 6.7 % (2-11); Neutrophils Absolute Auto 3.9 x10*3/uL (2.0-8.3); Neutrophils Percent Auto 50.8 % (45-73); Platelet Count 292 X10*3/uL (160-400); Red Blood Count 4.44 X10*6/uL (4.20-5.50); Red Cell Distribution Width 12.7 % (11.0-16.0); White Blood Count 7.8 X10*3/uL (4.8-10.8)
[2024-08-02 12:09] LABS: Erythrocyte Sedimentation Rate 19 MM/HR (0-20)
--- OUTSIDE RECORDS SUMMARY | 2024-08-02 12:41 | XMS_ITS | Clinical Summary ---
Author Organization [facility] Address [address] [place] [address] Care Team Providers Care Um Nurse Name Role Phone Onel James PA-C Primary Care Provider [phone] Source Comments PLEASE NOTE, if this patient is a minor, it may be UNLAWFUL to discuss sensitive information that is contained in these records (such as FAMILY PLANNING, MENTAL HEALTH or SUBSTANCE ABUSE) with the minor patient's parent or other person without the patient's specific authorization.[facility] Allergies No known active allergies Medications traZODone (DESYREL) 100 mg tablet Take 1 Tab by mouth nightly at bedtime 018 Active doxepin (SINEQUAN) 10 mg capsule TK 1 C PO QD HS 2 019 Active TENS unitsIndication s:Chronic midline back pain, unspecified back location,Cervic al disc disorder Use as needed for neck/shoulder pain. Dx: M54.9, M50.90. Length: Lifetime 1 Device 019 Active TENS unit electrodes 2X2 Indications:Ch ronic midline back pain, unspecified back location,Cervic al disc disorder Use as needed for neck/shoulder pain. Dx: M54.9, M50.90. Length: Lifetime 6 Each 1 019 Active HUMIRA,CF, PEN 40 mg/0.4 mL pnkt 020 Active methotrexate sodium 2.5 mg tablet TK 8 TS PO Q WEEK 020 Active prazosin (MINIPRESS) 2 mg capsule TK 2 CS PO HS 020 Active BANOPHEN 25 mg capsuleIndicati ons:Seasonal allergic rhinitis, unspecified trigger TAKE 1 CAPSULE BY MOUTH EVERY 6 HOURS NEEDED FOR ALLERGIES 60 Capsule 1 021 Active folic acid (FOLVITE) 1 mg tablet Take 1,000 mcg by mouth once daily Active VITAMIN D3 25 mcg (1,000 unit) capsule Take 1 Capsule by mouth once daily 022 Active FLUoxetine (PROZAC) 40 mg capsule Take 1 Capsule by mouth once daily 022 Active hydrOXYzine HCL (ATARAX) 50 mg tablet Take 1 Tablet by mouth nightly at bedtime as needed for sleep Active risperiDONE (RISPERDAL) 2 mg tablet Take 1 Tablet by mouth nightly at bedtime Active traMADoL (ULTRAM) 50 mg tablet Take 50 mg by mouth 2 (two) times daily as needed for pain 023 Active latanoprost (XALATAN) 0.005 % ophthalmic solution PLACE ONE DROP INTO EN LOS DOS OJOS AL ACOSTARSE 7.5 mL 1 023 Active famotidine (PEPCID) 20 mg tabletIndicatio ns:Gastroesopha geal reflux disease, unspecified whether esophagitis present TAKE 1 TABLET BY MOUTH EVERY NIGHT AT BEDTIME NEEDED FOR HEARTBURN 90 Tablet 1 024 Active omeprazole (PRILOSEC) [address] capsuleIndicati ons:Gastroesoph ageal reflux disease, unspecified whether esophagitis present TAKE 1 CAPSULE BY MOUTH EVERY MORNING BEFORE BREAKFAST 90 Capsule 025 Active SENNA 8.6 mg tabletIndicatio ns:Constipation , unspecified constipation type TAKE 2 TABLETS BY MOUTH AT BEDTIME NEEDED FOR CONSTIPATION 180 Tablet 3 025 Active atorvastatin (LIPITOR) 10 mg tabletIndicatio ns:Dyslipidemia Take 1 Tablet by mouth once daily 90 Tablet 1 025 Active cetirizine (ZYRTEC) 10 mg tabletIndicatio ns:Seasonal allergic rhinitis, unspecified trigger Take 1 Tablet by mouth once daily 90 Tablet 1 025 Active mometasone (NASONEX) 50 mcg/actuation nasal sprayIndication s:Seasonal allergic rhinitis, unspecified trigger,Elevate d BP without diagnosis of hypertension Place 2 Sprays in both nostrils once daily 17 g 025 Active SENNA 8.6 mg tabletIndicatio ns:Constipation , unspecified constipation type TAKE 2 TABLET BY MOUTH AT BEDTIME NEEDED CONSTIPATION 180 Tablet 3 023 2024 Discontinued atorvastatin (LIPITOR) 10 mg tabletIndicatio ns:Dyslipidemia TAKE 1 TABLET BY MOUTH EVERY DAY 90 Tablet 1 024 2024 Discontinued(R eorder (E-Cancel Not Sent)) loratadine (CLARITIN) 10 mg tabletIndicatio ns:Seasonal allergies TAKE 1 TABLET BY MOUTH DAILY NEEDED FOR ALLERGIES 90 Tablet 1 024 2024 Discontinued(T herapy completed/Not needed) fluticasone (FLONASE) 50 mcg/actuation nasal sprayIndication s:Seasonal allergic rhinitis, unspecified trigger SHAKE LIQUID AND USE 1 SPRAY IN EACH NOSTRIL EVERY DAY NEEDED FOR RHINITIS OR ALLERGIES 32 g 1 024 2024 Discontinued(T herapy completed/Not needed) omeprazole (PRILOSEC) [address] capsuleIndicati ons:Gastroesoph ageal reflux disease, unspecified whether esophagitis present TAKE 1 CAPSULE BY MOUTH EVERY MORNING BEFORE BREAKFAST 90 Capsule 024 2024 Discontinued Active Problems Problem Noted Date Diagnosed Date Seronegative rheumatoid arthritis ([facility]) 01/30 Arthralgia 03/05/2020 Cervical radiculopathy 10/04/2018 Left ovarian cyst 09/09/2018 Overview (09/09/2018): 08/2018: Referred for u/s showing left ovarian cyst 2.7 x 1.5 x 2.5 cm. Absence of uterus 09/09/2018 Non-rheumatic mitral regurgitation 08/19/2018 BMI 28.0-28.9,adult 06/29/2018 Prediabetes 06/29/2018 Overview (06/29/2018): A1C 5.7 (06/29/18) Positive CHANDRAKANT (antinuclear antibody) 09/28/2017 Overview (09/28/2017): Seen by rheumatology 09/06/17- Positive CHANDRAKANT, continue present therapy Meloxicam 7.5mg Arthritis 650 mg . Pt educated not to take meloxicam and tylenol at same time Hx of appendectomy 04/26/2017 Cervical disc disorder 01/19/2017 Overview (08/31/2017): MRI C spine( 12/26/16, [facility]): At C2-C3, there is mild anterolisthesis. Disc bulging. Facet arthropathy. Mild right neural foraminal narrowing. No central canal narrowing. At C3-C4, facet arthropathy. Mild bilateral neural foraminal narrowing. At C4-C5, disc degeneration disc bulging. Facet arthropathy. Moderate to severe bilateral neural foraminal narrowing. Narrowing of the anterior thecal space and central canal stenosis. At C5-C6, disc degeneration disc bulging. Facet arthropathy. Severe bilateral neural foraminal narrowing. Central canal stenosis. At C6-C7, disc degeneration disc bulging with loss of disc height. Facet arthropathy. Severe right and moderate left neural foraminal narrowing. Central canal stenosis. At C7-T1, disc degeneration disc bulging. No central canal or neural foraminal narrowing. Facet arthropathy. Flow voids within the carotid arteries are partly obscured by saturation fat bands. Grossly normal appearance of the flow voids within the visualized segment of the vertebral arteries. Motion artifacts further degrade images. In the visualized upper thoracic spine there is no disc herniation or central canal narrowing. IMPRESSION: Multilevel degenerative changes in the cervical spine with severe central canal stenosis at C4-C6. No abnormal signal intensity within the cord at this level. Seen by pain clinic- C7-T1 Epidural steroid injection Glaucoma 11/07/2016 Vitamin D deficiency 08/29/2016 Dyslipidemia 08/26/2016 GERD (gastroesophageal reflux disease) 7 Overview (07/20/2017): [facility] 07/13/2017 Emphysematous disease. Patient referred for Upper and Lower GI performed 04/14/17- Findings include UGI- Normal Duodenum, Extrinsic compression in the gastric body, normal esophagus. Lower GI Diverticulosis in the entire Colon, internal hemorroids, repeat in 10 years, High fiber diet CT was performed after patient reported pain after colonoscopy which revealed no pneumoperitoneum or complications Chronic midline back pain 08/26/2016 Overview (01/05/2017): Has Dx of herniated disc and has been on Tramadol from doctors in [place]. 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 MRI C spine( 12/26/16, [facility]): At C2-C3, there is mild anterolisthesis. Disc bulging. Facet arthropathy. Mild right neural foraminal narrowing. No central canal narrowing. At C3-C4, facet arthropathy. Mild bilateral neural foraminal narrowing. At C4-C5, disc degeneration disc bulging. Facet arthropathy. Moderate to severe bilateral neural foraminal narrowing. Narrowing of the anterior thecal space and central canal stenosis. At C5-C6, disc degeneration disc bulging. Facet arthropathy. Severe bilateral neural foraminal narrowing. Central canal stenosis. At C6-C7, disc degeneration disc bulging with loss of disc height. Facet arthropathy. Severe right and moderate left neural foraminal narrowing. Central canal stenosis. At C7-T1, disc degeneration disc bulging. No central canal or neural foraminal narrowing. Facet arthropathy. Flow voids within the carotid arteries are partly obscured by saturation fat bands. Grossly normal appearance of the flow voids within the visualized segment of the vertebral arteries. Motion artifacts further degrade images. In the visualized upper thoracic spine there is no disc herniation or central canal narrowing. IMPRESSION: Multilevel degenerative changes in the cervical spine with severe central canal stenosis at C4-C6. No abnormal signal intensity within the cord at this level. Bipolar disorder ([facility]) 08/26/2016 Overview (11/07/2016): Used to follow Psychiatry in [place]. Following at [facility]. Says that psychiatry appt is on Dec. Need refills till then Seasonal allergic rhinitis 08/26/2016 Overview (10/07/2017): Allergic to ragweed pollen, cattle dander, dust mites, horse dander and cockroach, declines allegy shots, flonase and loratidine, FU in 1 month Resolved Problems Problem Noted Date Diagnosed Date Resolved Date Essential hypertension 08/26/201601/07 Overview (08/26/2016): Controlled w/o meds Encounters Date Type Department Care Team Description 07/24/2024 10:20 AM EDT Office Visit [facility] [address] [place] [id number] Tanya Vinson NP Lopez, Iris Seasonal allergic rhinitis, unspecified trigger (Primary Dx); Elevated BP without diagnosis of hypertension 05/06/2024 10:20 AM EST Telemedicine Visit [facility] Kraig [address] [place] [phone] Onel James PA-C Decreased vision of left eye (Primary Dx); Seasonal allergies 05/06/2024 Travel from Last 3 Months Immunizations Immunization Administration Dates Next Due Flu, Preservative Free 03/28/2023,02/21/2018, INFLUENZA, SEASONAL, INJECTABLE 02/18/2022 PFIZER COVID VACCINE, PURPLE CAP, 12+ 10/28/2020 ,10/07/2020 PNEUMOCOCCAL CONJUGATE PCV 13 02/06/2019 Pfizer COVID vaccine, COMIRN ATY, ivy cap, 12+ 05/17/2021 Pfizer COVID-19 (Comirnaty), Mrna, Lnp-s, Pf, Efraín-sucrose, 30 Mcg/0.3 Ml, 12yr+ 03/28/2023 Pfizer-BioNTech COVID-19 Vac cine Bivalent, (IVY PFIZER-BIONTECH COVID-19 VACCINE BIVALENT, (IVY CAP 03/16/2022 TDAP 04/26/2017 Family History Medical History Relation Name Comments Breast cancer Maternal Aunt at >65 yrs old Relation Name Status Comments Maternal Aunt Social History Tobacco Use Types Packs/Day Years Used Date Smoking Tobacco: Former Smokeless Tobacco: Never Tobacco Cessation:Counseling Given: Not Answered Alcohol Use Standard Drinks/Week Comments No 0 (1 standard drink = 0.6 oz pur e alcohol) Social Connections Answer Date Recorded Connectedness 0 03/16/2022 Financial Resource Strain Answer Date R ecorded Financial Resource Strain 0 2021 Stress Answer Date Recorded Stress 0 03/16/2022 Physical Activity Answer Date Recorded Physical Activity 0 12/19/2018 Food Insecurity Answer Date Recorded Food 0 03/16/2022 Transportation Needs Answer Date Record ed Transportation 0 03/16/2022 Housing Stability Answer Date Recorded Housing 0 03/16/2022 Safety and Environment Answer Date Demarcus rded Safety 0 03/16/2022 Utilities Answer Date Recorded Utilities 0 03/16/2022 Employment Answer Date Recorded Employment 0 12/19/2018 Comments No Sex and Gender Information Value Date Recorded Sex Assigned at Female 03/07/2017 8:50 AM PST Legal Sex Female 6:07 AM PDT Gender Identity Female 03/07/2017 8:50 AM PST Sexual Orientation Straight 03/07/2017 8: 50 AM PST Last Filed Vital Signs Vital Sign Reading Time Taken Comments Blood Pressure 160/90 07/24/2024 10:08 AM EDT Pulse 69 07/24/2024 10:08 AM EDT Temperature 36.8 ??C (98.2 ??F) 07/24/2024 1 0:08 AM EDT Respiratory Rate 18 07/24/2024 10:0 8 AM EDT Oxygen Saturation 96% 03/28/2023 10: 22 AM EST Inhaled Oxygen Concentration - - Weight 73.4 kg (161 lb 12.8 oz) 025 10:08 AM EDT Height 160 cm (5' 3 ) 07/24/2024 10:08 AM EDT Body Mass Index 28.66 07/24/2024 10:08 AM EDT Plan of Treatment Upcoming Encounters Date Type Department Care Team (Late st Contact Info) Description 08/12/2024 10:00 AM EDT Office Visit [address] [phone] 08/29/2024 10:00 AM EDT Office Visit [address] [phone] Onel James PA-C [address] [place] [address] Health Maintenance Due Date Last Done Comments Anxiety Screening [address] Colonography 09/17/2007 Colonoscopy 09/17/2007 Fecal DNA 09/17/2007 Flexible Sigmoidoscopy 09/17/2007 Pap + HPV 08/09/2021 08/09/2018 Pap Smear 08/09/2021 08/09/2018, 07/30, 02/17/2015 (Managed by Outside Provider) [id number] ( season) 2023 03/28/2023, 03/16/2022, 05/17/2021, Additional history exists Breast Cancer Screening (Mammogram) 03/20/2024 03/20/2023, 01/28/2021, 01/27/2020, Additional history exists Annual Preventive Care Visit 03/28/2024 03/28/2023, 03/16/2022, 10/06/2020, Additional history exists Lipid Screening 03/28/2024 03/28/2023, 03/02, 03/05/2020, Additional history exists Colorectal Cancer Screening 04/09/2024 FIT/gFOBT 04/09/2024 04/09/2023, 01/29, 04/14/2017 Alcohol and Drug Screen 05/01/2024 08/25/19 23, 03/16/2022, 10/06/2020, Additional history exists Depression Annual Screen 05/01/2024 08/24/2022 Tobacco Screening 08/08/2024 08/09/2023 Diabetes Screening 05/07/2025 05/07/2024, 0 05/07/2024, 05/07/2024, Additional history exists Hypertension Screening (#1) 07/24/2025 Imm-DTaP/Tdap/Td (2 - Td or Tdap) 04/26/2027 04/26/2017 Imm-Pneumococcal (2 of 2 - PPSV23) 08/09/2028 02/06/2019 Postponed from 04/03/2019 (Not appropriate at this time) HIV Screening Completed 04/27/2017 Hepatitis C Screening Completed 08/25/2017, 017 Imm-Zoster, Recombinant Completed 11/24/2021, 09/23 Imm-Influenza Completed 02/22/2024, 03/02, 02/18/2022, Additional history exists Cervical Ablation/Cold-Knife Conization Discontinued Cervical Cancer Screening Discontinued Cervical Cryotherapy Discontinued Colposcopy Discontinued Endometrial Biopsy Discontinued Excision/Leep Discontinued HPV Genotyping Discontinued Vaginal Pap Discontinued Vulvoscopy Discontinued Procedures Procedure Name Priority Date/Time Associated Diagnosis Comments REFERRAL SCANNED DOCUMENT 05/21/2024 3:00 AM EST FECAL GLOBIN BY IMMUNOCHEM (MEDICARE) Routine 04/09/2023 7:00 PM EST Screening for colorectal cancer COMPREHENSIVE METABOLIC PANEL Routine 03/28/2023 10:59 AM EST Encounter for annual physical exam LIPID PANEL Routine 03/28/2023 10:59 AM EST Dyslipidemia REFERRAL FOR MAMMOGRAM Routine 03/20/2023 3:00 AM EST Breast cancer screening by mammogram PAP, LIQUID BASED Routine 08/09/2018 3:0 3 PM EDT Encounter for well woman exam with routine gynecological exam HEPATITIS C ANTIBODY Routine 08/25/2017 9:36 AM EDT Screen for sexually transmitted diseases ANTIBODY HIV-1&HIV-2 SINGLE RESULT Routine 04/27/2017 9:30 AM EST Encounter for routine adult medical examination from Last 3 Months or Most Recently Relevant to Health Maintenance Results * REFERRAL SCANNED DOCUMENT (05/21/2024 3:00 AM EST) 05/21/2024 3:00 AM EST us Onel James PA-C SCAN REFERRAL Final Result * FECAL GLOBIN BY IMMUNOCHEM (MEDICARE) (04/09/2023 7:00 PM EST) FECAL GLOBIN BY IMMUNOCHEMISTRY See Note [employer] Comment: ??FECAL GLOBIN BY IMMUNOCHEMISTRY ?Micro Number: ?[id number] ??Test Status: ? Final ??Specimen Source: ?? Insure (tm) fobt test card ??Specimen Quality: ??Adequate ??Fecal Globin: ?Not Detected Stool Stool specimen / Unknown 04/09/2023 7:00 PM EST 04/15/2023 5:40 AM EST us Onel James PA-C LAB - NO BLOOD DRAW Final Re sult [facility] [address] [address], [facility] [address] [phone] * (ABNORMAL) LIPID PANEL (03/28/2023 10:59 AM EST) CHOLESTEROL, TOTAL 257(H) <200 mg/dL [facility] HDL CHOLESTEROL 54 > OR = 50 mg/dL [facility] TRIGLYCERIDES 164(H) <150 mg/dL [facility] LDL-CHOLESTEROL 172(H) 99 mg/dL (calc) [facility] Comment: Reference range: <100 Desirable range <100 mg/dL for primary prevention; ?? <70 mg/dL for patients with CHD or diabetic patients with > or = 2 CHD risk factors. LDL-C is now calculated using the Juan calculation, which is a validated novel method providing better accuracy than the Friedewald equation in the estimation of LDL-C. Sorin SS et al. TAHIRA. 2013;310(19): 1448-2618 (http://education.ChallengePost/faq/PMN273) CHOL/HDLC RATIO 4.8 <5.0 (calc) [facility] NON-HDL CHOLESTEROL 203(H) <130 mg/dL (calc) [facility] Comment: For patients with diabetes plus 1 major ASCVD risk factor, treating to a non-HDL-C goal of <100 mg/dL (LDL-C of <70 mg/dL) is considered a therapeutic option. Blood Blood / Unknown 03/28/2023 1 0:59 AM EST 03/28/2023 11:00 AM EST Narrative [employer] [facility] - 04/01/2023 5:00 PM EST FASTING:NO us Onel James PA-C LAB - BLOOD DRAW Final Resul t [employer] [facility] [address] [address], [facility] [address] [place] [address] * REFERRAL FOR MAMMOGRAM (03/20/2023 3:00 AM EST) 03/20/2023 3:00 AM EST Onel James PA-C IMG RFL MAMMO Edited Resul t - Final * PAP, LIQUID BASED (08/09/2018 3:03 PM EDT) Swab of endocervix (specimen) Endocervical structure / Unknown 08/09/2018 3:03 PM EDT Impressions [facility] - 08/09/2018 3:03 PM EDT Thinprep pap: Negative for squamous intraepithelial lesion and malignancy HPV: negative Louann Minor COMMUNITY SERVICE REPRESENTATIVE LAB - NO BLOOD DRAW Final Result Performing Organization Address [facility] Co de Phone Number [facility] [address] [address], * HEPATITIS C ANTIBODY (08/25/2017 9:36 AM EDT) [facility] HEPATITIS C VIRUS SCREEN NEGATIVE NEGATIVE [facility] Blood specimen (specimen) Blood / Unknown 08/25/2017 9:36 AM EDT 08/25/2017 10:07 AM EDT Narrative [facility] - 08/25/2017 12:58 PM EDT [employer] [address] [place] [address] PT ID [id number] ORD# [id number] Yanet Johnson DELIVERY RECRUITER LAB - BLOOD DRAW Final Result Performing Organization Address City/[facility] Co de Phone Number [address] [address], * HIV-1 & HIV-2 ANTIBODIES (04/27/2017 9:30 AM EST) [facility] HIV 1 AND 2 ANTIBODY SCREEN NEGATIVE NEGATIVE [facility] Comment: This assay is a 4th generation assay allowing for earlier detection of HIV infection by detecting the presence of the HIV-1 p24 antigen as well as the traditional antibodies to HIV type 1 (including group O) and type 2. ??Use of a 4th generation assay is the current CDC recommendation for HIV screening. Blood specimen (specimen) Blood / Unknown 04/27/2017 9:30 AM EST 04/27/2017 9:51 AM EST Narrative [facility] - 04/27/2017 12:42 PM EST [email or web address] [address] [place] [address] PT ID [id number] ORD# [id number] us Yanet Johnson NP LAB - BLOOD DRAW Final Result [facility] [facility] [address] [place] [address], from Last 3 Months or Most Recently Relevant to Health Maintenance Insurance [employer] [facility] [place] [address] [facility] Care Teams Um Nurse Relationship Specialty Start Date End Date Onel James PA-C [address] [place] [address] PCP - General FAMILY MEDICINENEHEMIAS 08/27/21
--- OUTSIDE RECORDS SUMMARY | 2024-08-02 12:41 | XMS_ITS | Clinical Summary ---
Author Organization [address] Address [address] [place] [id number] Phone Care Team Providers Care Crime Analyst Name Role Phone Onel Miles Primary Care Provider [phone] Surgical History Surgery Date Site/Laterality Comments APPENDECTOMY 04/26/2017 PROCEDURE: HISTORICAL APPENDECTOMY HYSTERECTOMY PROCEDURE: HISTORICAL HYSTERECTOMY; COMMENT: ovaries retained Medical History Medical History Date Comments Left ovarian cyst 09/09/2018 DX:Left ovaria n cyst Absence of uterus DX:Absence of uterus Non-rheumatic mitral regurgitation 08/10/2018 DX:Non-rheumatic mitral regurgitation Pre-diabetes DX:Pre-diabetes Cervical disc disorder 01/19/2017 DX:Cervic al disc disorder Glaucoma 11/07/2016 DX:Glaucoma Vitamin D deficiency 08/29/2016 DX:Vitamin D deficiency Dyslipidemia 08/26/2016 DX:Dyslipidemia Gastroesophageal reflux disease 08/26/2016 DX:Gastroesophageal reflux disease Chronic midline back pain 08/26/2016 DX:Chr onic midline back pain Essential hypertension, benign 08/26/2016 D X:Essential hypertension, benign Bipolar disorder, unspecified ([facility]) 08/27/19 17 DX:Bipolar disorder, unspecified ([facility]) Seasonal allergies 08/26/2016 DX:Seasonal a llergies Paroxysmal nocturnal dyspnea DX: Paroxysmal nocturnal dyspnea Family History Medical History Relation Name Comments Hypertension Father Diabetes Mother Hypertension Mother Prostate cancer Mother's side 1 Uncle Lung cancer Mother's side 2 Aunt smoker Ovarian cancer Mother's side 3 Cousin Breast cancer Mother's side 4 Relation Name Status Comments Father Alive Mother Alive Mother's side 1 Uncle Mother's side 2 Aunt Mother's side 3 Cousin Alive Mother's side 4 Social History Tobacco Use Types Packs/Day Years Used Date Smoking Tobacco: Never Smokeless Tobacco: Never Alcohol Use Standard Drinks/Week Comments No 0 (1 standard drink = 0.6 oz pur e alcohol) Comments Unknown Sex and Gender Information Value Date Recorded Sex Assigned at Not on file Legal Sex Female 4:16 AM EST Gender Identity Not on file Sexual Orientation Not on file Obstetrics History Plan of Treatment Health Maintenance Due Date Last Done Comments Pneumococcal Vaccine: 50+ Years (2 of 2 - PPSV23) 02/07/2020 02/06/2019 Cervical Cancer Screening: Pap Smear 08/09/2021 08/09/2018 Social Influencers of Health Screening 04/03/2022 Depression Screening 08/25/2023 08/24/2022 COVID-19 Vaccine ( season) 2023 03/28/2023, 03/16/2022, 05/17/2021, Additional history exists Colorectal Cancer Screening: Stool Based Tests (FOBT/FIT) 04/09/2024 04/09/2023 Breast Cancer Screening 03/20/2025 03/20/20 23, 03/16/2022, 01/28/2021, Additional history exists Hypertension/CHF/CAD Annual BMP Blood Test 05/07/2025 05/07/2024, 03/28/2023 DTaP,Tdap,and Td Vaccines (2 - Td or Tdap) 04/26/2027 04/26/2017 Cholesterol Screening (Lipid Panel) 03/28/2028 03/28/2023, 03/28/2023, 03/22/2022, Additional history exists RSV Immunization Adult Patients (1 - 1-dose 75+ series) 2037 HIV Screening Completed 04/27/2017 Hepatitis C Screening Completed 08/25/2017, 018 Pneumococcal Vaccine: Pediatrics (0 to 5 Years) and At-Risk Patients (6 to 64 Years) Aged Out 02/06/2019 No longer eligible based on patient's age to complete this topic Zoster Vaccines Completed 11/24/2021, 09/23/2021 Influenza Vaccine Completed 02/22/2024, , 02/18/2022, Additional history exists HIB Vaccines Aged Out No longer eligi ble based on patient's age to complete this topic HPV Vaccines Aged Out No longer eligi ble based on patient's age to complete this topic Hepatitis A Vaccines Aged Out No long er eligible based on patient's age to complete this topic Hepatitis B Vaccines Aged Out No long er eligible based on patient's age to complete this topic IPV Vaccines Aged Out No longer eligi ble based on patient's age to complete this topic MMR Vaccines Aged Out No longer eligi ble based on patient's age to complete this topic Meningococcal ACWY Vaccine Aged Out N o longer eligible based on patient's age to complete this topic Meningococcal B Vacine Aged Out No lo nger eligible based on patient's age to complete this topic RSV Immunization Patients Under 20 months Aged Out No longer eligible based on patient's age to complete this topic Varicella Vaccines Aged Out No longer eligible based on patient's age to complete this topic Procedures Procedure Name Priority Date/Time Associated Diagnosis Comments URINALYSIS WITH REFLEX MICROSCOPIC Routine 05/07/2024 10:35 AM EST Posttraumatic stress disorder CBC WITH AUTO DIFFERENTIAL Routine 05/07/2024 10:35 AM EST Posttraumatic stress disorder URINALYSIS WITH REFLEX MICROSCOPIC Routine 05/07/2024 10:35 AM EST Posttraumatic stress disorder PROLACTIN Routine 05/07/2024 10:35 AM EST Posttraumatic stress disorder HEMOGLOBIN A1C Routine 05/07/2024 10:35 AM EST Posttraumatic stress disorder FERRITIN Routine 05/07/2024 10:35 AM EST Posttraumatic stress disorder CBC AND DIFFERENTIAL Routine 05/07/2024 10:35 AM EST Posttraumatic stress disorder THYROID STIMULATING HORMONE WITH REFLEX TO FREE T4 AND FREE T3 Routine 05/07/2024 10:35 AM EST Posttraumatic stress disorder COMPREHENSIVE METABOLIC PANEL Routine 05/07/2024 10:35 AM EST Posttraumatic stress disorder DEXTER SCREENING DIGITAL Routine 03/20/2023 11:20 AM EST Encounter for screening mammogram for malignant neoplasm of breast from Last 3 Months or Most Recently Relevant to Health Maintenance Results * (ABNORMAL) Urinalysis with reflex microscopic (05/07/2024 10:35 AM EST) Specific [place] Urine 1.021 1.003 - 1.030 LAB URINALYSIS - AUTOMATED METHOD 05/07/2024 11:31 AM [facility] pH, Urine 6.5 5.0 - 8.0 pH LAB URINALYSIS - AUTOMATED METHOD 05/07/2024 11:31 AM [facility] Leukocytes, Urine Small(A) Negative LAB URINALYSIS - AUTOMATED METHOD 05/07/2024 11:31 AM [facility] Nitrite, Urine Negative Negative LAB URINALYSIS - AUTOMATED METHOD 05/07/2024 11:31 AM [facility] Protein, Urine Negative <=Trace mg/dL LAB URINALYSIS - AUTOMATED METHOD 05/07/2024 11:31 AM [facility] Glucose, Urine Negative Negative mg/dL LAB URINALYSIS - AUTOMATED METHOD 05/07/2024 11:31 AM [facility] Ketones, Urine Negative Negative mg/dL LAB URINALYSIS - AUTOMATED METHOD 05/07/2024 11:31 AM [facility] Urobilinogen , Urine 0.2 0.2 - 1.0 mg/dL LAB URINALYSIS - AUTOMATED METHOD 05/07/2024 11:31 AM [facility] Bilirubin, Urine Negative Negative LAB URINALYSIS - AUTOMATED METHOD 05/07/2024 11:31 AM [facility] Blood, Urine Moderate(A) Negative LAB URINALYSIS - AUTOMATED METHOD 05/07/2024 11:31 AM [facility] RBC, Urine 49.8(H) 0 - 4 /HPF LAB URINALYSIS - AUTOMATED METHOD 05/07/2024 11:31 AM [facility] WBC, Urine 2.8 0 - 4 /HPF LAB URINALYSIS - AUTOMATED METHOD 05/07/2024 11:31 AM [facility] Squamous Epithelial, Urine 58 0 - 60 /LPF LAB URINALYSIS - AUTOMATED METHOD 05/07/2024 11:31 AM [facility] Bacteria, Urine Negative Negative /HPF LAB URINALYSIS - AUTOMATED METHOD 05/07/2024 11:31 AM [facility] Hyaline Casts, Urine 1.7 0 - 3 /LPF LAB URINALYSIS - AUTOMATED METHOD 05/07/2024 11:31 AM [facility] Urine Urine specimen obtained by clean catch procedure / Unknown Non-blood Collection / Unknown 05/07/2024 10:35 AM EST 05/07/2024 10:46 AM EST us Madisyn Patel NP LAB URINE ORDERABLES Final Resul t Performing Organization Address [facility]/ZIP Co de Phone Number [facility] [address] [place] [address], [place] [phone] * Thyroid stimulating hormone with reflex to free t4 and free t3 (05/07/2024 10:35 AM EST) TSH 1.60 0.40 - 4.00 mcIU/mL LAB CHEMISTRY METHOD 05/07/2024 11:31 AM EST [facility] Blood Venous blood specimen / Unknown Venipuncture / Unknown 05/07/2024 10:35 AM EST 05/07/2024 10:46 AM EST us Madisyn Patel NP LAB BLOOD ORDERABLES Final Resul t Performing Organization Address [facility]/ZIP Co de Phone Number [facility] [address] [place] [address], [place] [phone] * (ABNORMAL) CBC auto differential (05/07/2024 10:35 AM EST) WBC 7.5 4.8 - 10.8 K/mcL LAB HEMETOLOGY METHOD 05/07/2024 10:58 AM EST [facility] RBC 4.20 3.80 - 4.80 M/mcL LAB HEMETOLOGY METHOD 05/07/2024 10:58 AM [facility] Hemoglobin 12.3 11.5 - 16.0 g/dL LAB HEMETOLOGY METHOD 05/07/2024 10:58 AM [facility] Hematocrit 37.6 35.0 - 47.0 % LAB HEMETOLOGY METHOD 05/07/2024 10:58 AM [facility] MCV 89.1 79.0 - 98.0 FL LAB HEMETOLOGY METHOD 05/07/2024 10:58 AM [facility] MCH 29.1 27.0 - 32.0 pcg LAB HEMETOLOGY METHOD 05/07/2024 10:58 AM [facility] MCHC 32.7 32.0 - 37.0 g/dL LAB HEMETOLOGY METHOD 05/07/2024 10:58 AM [facility] RDW 12.7 11.0 - 15.0 % LAB HEMETOLOGY METHOD 05/07/2024 10:58 AM [facility] Platelets 251 130 - 400 K/mcL LAB HEMETOLOGY METHOD 05/07/2024 10:58 AM [facility] MPV 8.7 7.0 - 11.0 FL LAB HEMETOLOGY METHOD 05/07/2024 10:58 AM [facility] NRBC 0.0 <1.0 % LAB HEMETOLOGY METHOD 05/07/2024 10:58 AM [facility] NRBC Absolute 0.00 <0.10 K/mcL LAB HEMETOLOGY METHOD 05/07/2024 10:58 AM [facility] Neutrophils Relative 44.4 % LAB HEMETOLOGY METHOD 05/07/2024 10:58 AM [facility] Lymphocytes Relative 39.7 % LAB HEMETOLOGY METHOD 05/07/2024 10:58 AM EST [facility] Monocytes Relative 7.7 % LAB HEMETOLOGY METHOD 05/07/2024 10:58 AM EST [facility] Eosinophils Relative 6.8 % LAB HEMETOLOGY METHOD 05/07/2024 10:58 AM [facility] Basophils Relative 1.1 % LAB HEMETOLOGY METHOD 05/07/2024 10:58 AM [facility] Immature Granulocytes Relative 0.3 % LAB HEMETOLOGY METHOD 05/07/2024 10:58 AM [facility] Neutrophils Absolute 3.36 1.50 - 7.00 K/mcL LAB HEMETOLOGY METHOD 05/07/2024 10:58 AM [facility] Lymphocytes Absolute 2.99 1.00 - 5.00 K/mcL LAB HEMETOLOGY METHOD 05/07/2024 10:58 AM [facility] Monocytes Absolute 0.58 0.20 - 1.00 K/mcL LAB HEMETOLOGY METHOD 05/07/2024 10:58 AM [facility] Eosinophils Absolute 0.51(H) 0.00 - 0.50 K/mcL LAB HEMETOLOGY METHOD 05/07/2024 10:58 AM [facility] Basophils Absolute 0.08 0.00 - 0.20 K/mcL LAB HEMETOLOGY METHOD 05/07/2024 10:58 AM [facility] Immature Granulocytes Absolute 0.02 0.00 - 0.03 K/mcL LAB HEMETOLOGY METHOD 05/07/2024 10:58 AM [facility] Blood Venous blood specimen / Unknown Venipuncture / Unknown 05/07/2024 10:35 AM EST 05/07/2024 10:46 AM EST us Madisyn Patel NP LAB BLOOD ORDERABLES Final Resul t [facility] [address] [place] [address], * Prolactin (05/07/2024 10:35 AM EST) [facility] Prolactin 9.10 See Comment ng/mL LAB CHEMISTRY METHOD 05/07/2024 11:30 AM EST [facility] Comment: Prolactin Reference Ranges (ng/mL) ??Non ?2.2 - ??30.3 ? 8.1 - 347.6 ??Postmenopausal 0.7 - ??31.5 Blood Venous blood specimen / Unknown Venipuncture / Unknown 05/07/2024 10:35 AM EST 05/07/2024 10:46 AM EST us Madisyn Patel NP LAB BLOOD ORDERABLES Final Resul t Performing Organization Address [facility]/ZIP Co de Phone Number [facility] [address] [place] [address], * Hemoglobin A1c (05/07/2024 10:35 AM EST) [facility] Hemoglobin A1C 5.8 <6.5 % LAB CHEMISTRY METHOD 05/07/2024 1:54 PM EST [facility] Mean Bld Glu Estim. 120 mg/dL LAB CHEMISTRY METHOD 05/07/2024 1:54 PM EST [facility] Blood Venous blood specimen / Unknown Venipuncture / Unknown 05/07/2024 10:35 AM EST 05/07/2024 10:46 AM EST us Madisyn Patel NP LAB BLOOD ORDERABLES Final Resul t Performing Organization Address [facility]/ZIP Co de Phone Number [facility] [address] [place] [address], [place] [phone] * Ferritin (05/07/2024 10:35 AM EST) [facility] Ferritin 43 8 - 252 ng/mL LAB CHEMISTRY METHOD 05/07/2024 11:30 AM [facility] Blood Venous blood specimen / Unknown Venipuncture / Unknown 05/07/2024 10:35 AM EST 05/07/2024 10:46 AM EST us Madisyn Patel NP LAB BLOOD ORDERABLES Final Resul t [facility] [address] [place] [address], * (ABNORMAL) Comprehensive metabolic panel (05/07/2024 10:35 AM EST) Sodium 138 133 - 145 mmol/L LAB CHEMISTRY METHOD 05/07/2024 11:30 AM [facility] Potassium 4.2 3.5 - 5.5 mmol/L LAB CHEMISTRY METHOD 05/07/2024 11:30 AM [facility] Chloride 106 96 - 110 mmol/L LAB CHEMISTRY METHOD 05/07/2024 11:30 AM [facility] CO2 28 21 - 32 mmol/L LAB CHEMISTRY METHOD 05/07/2024 11:30 AM [facility] Anion Gap 4 3 - 11 LAB CHEMISTRY METHOD 05/07/2024 11:30 AM [facility] Glucose 103(H) 70 - 100 mg/dL LAB CHEMISTRY METHOD 05/07/2024 11:30 AM [facility] BUN 19 5 - 25 mg/dL LAB CHEMISTRY METHOD 05/07/2024 11:30 AM [facility] Creatinine 0.68 0.50 - 1.10 mg/dL LAB CHEMISTRY METHOD 05/07/2024 11:30 AM [facility] eGFR 99 >=60 mL/min/1. 73m2 LAB CHEMISTRY METHOD 05/07/2024 11:30 AM [facility] Comment:Calculation based on the??Chronic Kidney Disease Epidemiology Collaboration (CKD-EPI) equation refit??without adjustment for race. BUN/Creatinine Ratio 27.9 LAB CHEMISTRY METHOD 05/07/2024 11:30 AM [facility] Calcium 9.0 8.5 - 10.5 mg/dL LAB CHEMISTRY METHOD 05/07/2024 11:30 AM [facility] AST (SGOT) 11 10 - 42 unit/L LAB CHEMISTRY METHOD 05/07/2024 11:30 AM [facility] ALT (SGPT) 18 10 - 60 unit/L LAB CHEMISTRY METHOD 05/07/2024 11:30 AM [facility] Alkaline Phosphatase 97 42 - 121 unit/L LAB CHEMISTRY METHOD 05/07/2024 11:30 AM [facility] Total Protein 6.9 6.0 - 8.0 g/dL LAB CHEMISTRY METHOD 05/07/2024 11:30 AM [facility] Albumin 3.6 3.2 - 5.0 g/dL LAB CHEMISTRY METHOD 05/07/2024 11:30 AM [facility] Total Bilirubin 0.3 0.0 - 1.4 mg/dL LAB CHEMISTRY METHOD 05/07/2024 11:30 AM [facility] Blood Venous blood specimen / Unknown Venipuncture / Unknown 05/07/2024 10:35 AM EST 05/07/2024 10:46 AM EST us Madisyn Patel NP LAB BLOOD ORDERABLES Final Resul t [facility] [address] [place] [address], * DEXTER SCREENING DIGITAL (03/20/2023 11:20 AM EST) Anatomical Region Laterality Modality Mammography 03/20/2023 10:2 2 AM EST Narrative 03/20/2023 11:20 AM [facility] Diagnostic Imaging Department [address] [place] [address] Patient: ??SANDRA CAMACHO ?/Age/Sex: 1960 - 62 - F Unit#: ??[id number] ? Location/Status: ??SPDIMAM/REG CLI ? Mnemonic/Ordering Site: ??DIGSC/SPMAM Ordering Physician: ??ONEL MILES [facility] Screening Digital - 03/20/23 - 1039 Report Status:Signed EXAM: [facility] Screening Digital EXAM DATE AND TIME: 03/20/2023 10:40 AM HISTORY: ??Annual screening COMPARISON: ??Multiple exams dating back to 2008 TECHNIQUE: Bilateral digital breast tomosynthesis was performed in the CC and MLO projections. Computer aided detection with [employer] 3D 3.1 was employed. TISSUE DENSITY: b. There are scattered areas of fibroglandular density. FINDINGS: No suspicious masses, grouped microcalcifications, or areas of architectural distortion are seen. The skin and vascularity are unremarkable. IMPRESSION: Stable mammographic appearance of the breasts. ??No evidence of malignancy is seen. A negative mammogram in the presence of a clinically suspicious palpable abnormality does not preclude the possibility of malignancy or alter the indications for biopsy. BI-RADS: ??Category 1: Negative RECOMMENDATION(S): 1: Routine screening mammogram BILATERAL in 1 year. 3341F, 7025F Dictating Physician: ??RENARD THACKER MD Electronically Signed by: ??RENARD THACKER MD Dic Date/Time: ??03/20/23 1119 Sign date/Time: ??03/20/23 1120 Procedure Note Renard Thacker MD - 06/06/2023 [facility] Diagnostic Imaging Department [address] [place] [id number] Patient: DAPHNE GANNONSANDRA./Age/Sex: 1960 - 62 - F Unit#: [id number] Location/Status: SPDIMAM/REG CLI Mnemonic/Ordering Site: [facility] Ordering Physician: ONEL MILES [facility] Screening Digital - 03/20/23 - 1039 Report Status:Signed EXAM: [facility] Screening Digital EXAM DATE AND TIME: 03/20/2023 10:40 AM HISTORY: Annual screening COMPARISON: Multiple exams dating back to 2008 TECHNIQUE: Bilateral digital breast tomosynthesis was performed in the CCand MLO projections. Computer aided detection with [employer] 3D 3.1was employed. TISSUE DENSITY: b. There are scattered areas of fibroglandular density. FINDINGS: No suspicious masses, grouped microcalcifications, or areas ofarchitectural distortion are seen. The skin and vascularity are unremarkable. IMPRESSION: Stable mammographic appearance of the breasts. No evidence of malignancyis seen. A negative mammogram in the presence of a clinically suspicious palpable abnormality does not preclude the possibility of malignancy or alter the indications for biopsy. BI-RADS: Category 1: Negative RECOMMENDATION(S): 1: Routine screening mammogram BILATERAL in 1 year. 3341F, 7025F Dictating Physician: RENARD THACKER MD Electronically Signed by: RENARD THACKER MD Dic Date/Time: 03/20/23 1119 Sign date/Time: 03/20/23 1120 Onel DEL CID IMG BI PROCEDURES Final Result from Last 3 Months or Most Recently Relevant to Health Maintenance Insurance MEDICAID - [place] Care Teams Crime Analyst Relationship Specialty Start Date End Date Onel Miles PA [address] [place] [id number] PCP - General 05/07/24
[2024-08-02 13:12] LABS: Alanine Aminotransferase 16 U/L (0-31); Albumin Level 4.2 g/dL (3.5-5.0); Alkaline Phosphatase 89 U/L (39-117); Anion Gap 11 (12-20); Aspartate Amino Transferase 17 U/L (5-31); Bilirubin Total 0.3 mg/dL (0.0-1.0); Blood Urea Nitrogen 18 mg/dL (9-16); Calcium 9.7 mg/dL (8.4-10.2); Carbon Dioxide 25 mmol/L (22-29); Chloride 109 mmol/L (96-108); Estimated Glomerular Filt Rate > 60; Glucose Random 111 mg/dL (60-115); Potassium 3.9 mmol/L (3.3-5.1); Sodium 141 mmol/L (135-145); Total Protein 7.2 g/dL (6.5-8.0)
== END 2024-08-02 10:55 | disposition home or self-care (01) ==
LOC: HO.XRAY 10:54
PROVIDERS: PCP Physician Assistant; Visit Provider Student in an Organized Health Care Education/Training Program
DX: M06.00 Rheumatoid arthritis without rheumatoid factor, unspecified site (principal)
CPT/HCPCS: 36415; 73100; 73130; 80053; 85025; 85652; 86140

== ENCOUNTER → 2024-08-02 11:07 | Outpatient (BNV) | payer MEDICAID, SELFPAY | PROVIDERS: PCP Physician Assistant; Visit Provider Radiology Diagnostic Radiology | DX: M06.00 Rheumatoid arthritis without rheumatoid factor, unspecified site (principal) | CPT/HCPCS: 73110; 73130 ==

== ENCOUNTER 2024-09-20 10:37 | Outpatient (AMB) | payer MEDICAID, SELFPAY ==
--- OUTSIDE RECORDS SUMMARY | 2024-09-20 10:42 | XMS_ITS | Clinical Summary ---
Author Organization [address] Address [address] [place] [address] Phone Care Team Providers Care Sheet Metal Technician Name Role Phone Onel Miles Primary Care Provider [phone] Allergies No known active allergies Medications atorvastatin (LIPITOR) 10 mg tablet Take 1 tablet (10 mg total) by mouth daily. 9 Active mometasone (NASONEX) 50 mcg/actuation nasal spray Administer 2 sprays into each nostril 1 (one) time each day. Active Encounters Date Type Department Care Team Description 09/04/2024 Telephone Gastroenterology - [place] [facility] [address] [facility] [address] [place] [address] Pattie Thomas MD special procedure from Last 3 Months Surgical History Surgery Date Site/Laterality Comments APPENDECTOMY [...] 08/26/2016 D X:Essential hypertension, benign Bipolar disorder, unspecifie d (CMS/HCC V24, CMS/HCC V28) 08/26/2016 DX:Bipolar disorder, unspeci fied (HCC) Seasonal allergies 08/26/2016 DX:Seasonal a llergies Paroxysmal [...] Value Date Recorded Sex Assigned at Female 09/19/2024 9:44 AM EDT Legal Sex Female 4:16 AM EST Gender Identity Female 09/19/2024 9:44 AM EDT Sexual Orientation Straight 09/19/2024 9: 44 AM EDT Obstetrics History Plan of Treatment Upcoming Encounters Date Type Department Care Team (Late st Contact Info) Description 11/19/2024 10:00 AM EDT [facility]ointment [facility] [address] [address] Health Maintenance Due Date Last Done Comments [...] age to complete this topic Meningococcal B Vaccine Aged Out No l onger eligible based on patient's age to complete this topic RSV Immunization Patients Under 20 months Aged Out No longer eligible based on patient's age to complete this topic Varicella Vaccines Aged Out No longer eligible based on patient's age to complete this topic Procedures Procedure Name Priority Date/Time Associated Diagnosis Comments COMPREHENSIVE METABOLIC PANEL Routine 05/07/2024 10:35 AM EST Posttraumatic stress disorder TA SCREENING DIGITAL Routine 03/20/2023 11:20 AM EST Encounter for screening mammogram for malignant neoplasm of breast from Last 3 Months or Most Recently Relevant to Health Maintenance Results * (ABNORMAL) Comprehensive metabolic panel (05/07/2024 10:35 AM EST) Sodium 138 133 - 145 mmol/L LAB CHEMISTRY METHOD 05/07/2024 11:30 AM [facility] Potassium 4.2 3.5 - 5.5 mmol/L LAB CHEMISTRY METHOD 05/07/2024 11:30 AM [facility] Chloride 106 96 - 110 mmol/L LAB CHEMISTRY METHOD 05/07/2024 11:30 AM [facility] CO2 28 21 - 32 mmol/L LAB CHEMISTRY METHOD 05/07/2024 11:30 AM [facility] Anion Gap 4 3 - 11 LAB CHEMISTRY METHOD 05/07/2024 11:30 AM [facility] Glucose 103(H) 70 - 100 mg/dL LAB CHEMISTRY METHOD 05/07/2024 11:30 AM [facility] BUN 19 5 - 25 mg/dL LAB CHEMISTRY METHOD 05/07/2024 11:30 AM [facility] Creatinine 0.68 0.50 - 1.10 mg/dL LAB CHEMISTRY METHOD 05/07/2024 11:30 AM [facility] eGFR 99 >=60 mL/min/1. 73m2 LAB CHEMISTRY METHOD 05/07/2024 11:30 AM [facility] Comment:Calculation based on the??Chronic Kidney Disease Epidemiology Collaboration (CKD-EPI) equation refit??without adjustment for race. BUN/Creatinine Ratio 27.9 LAB CHEMISTRY METHOD 05/07/2024 11:30 AM [facility] Calcium 9.0 8.5 - 10.5 mg/dL LAB CHEMISTRY METHOD 05/07/2024 11:30 AM [facility] AST (SGOT) 11 10 - 42 unit/L LAB CHEMISTRY METHOD 05/07/2024 11:30 AM [facility] ALT (SGPT) 18 10 - 60 unit/L LAB CHEMISTRY METHOD 05/07/2024 11:30 AM [facility] Alkaline Phosphatase 97 42 - 121 unit/L LAB CHEMISTRY METHOD 05/07/2024 11:30 AM EST [facility] Total Protein 6.9 6.0 - 8.0 g/dL LAB CHEMISTRY METHOD 05/07/2024 11:30 AM EST [facility] Albumin 3.6 3.2 - 5.0 g/dL LAB CHEMISTRY METHOD 05/07/2024 11:30 AM EST [facility] Total Bilirubin 0.3 0.0 - 1.4 mg/dL LAB CHEMISTRY METHOD 05/07/2024 11:30 AM EST [facility] Blood Venous blood specimen / Unknown Venipuncture / Unknown 05/07/2024 10:35 AM EST 05/07/2024 10:46 AM EST us Madisyn Patel NP LAB BLOOD ORDERABLES Final Resul t [facility] [address] [place] [address], * TA SCREENING DIGITAL (03/20/2023 11:20 AM EST) Anatomical Region Laterality Modality Mammography 03/20/2023 10:2 2 AM EST Narrative 03/20/2023 11:20 AM EST [facility] Diagnostic Imaging Department [address] [place] [address] Patient: ??SANDRA CAMACHO ?/Age/Sex: 1960 - 62 - F Unit#: ??[id number] ? Location/Status: ??SPDIMAM/REG CLI ? Mnemonic/Ordering Site: ??DIGSC/SPMAM Ordering Physician: ??ONEL MILES Ta Screening Digital - 03/20/23 - 1039 Report Status:Signed EXAM: [facility] Screening Digital EXAM DATE AND TIME: 03/20/2023 10:40 AM HISTORY: ??Annual screening COMPARISON: ??Multiple exams dating back to 2008 TECHNIQUE: Bilateral digital breast tomosynthesis was performed in the CC and MLO projections. Computer aided detection with Seed[employer]Spark 3D 3.1 was employed. TISSUE DENSITY: b. [...] Procedure Note Renard Thacker MD - 06/06/2023 [facility] Diagnostic Imaging Department [address] [place] [address] Patient: SANDRA CAMACHO/Age/Sex: 1960 - 62 - F Unit#: [id number] Location/Status: SPDIMAM/REG CLI [facility] Order[facility] Physician: ONEL MILES [facility] Screening Digital - 03/20/23 - 1039 Report Status:Signed EXAM: [facility] Screening Digital EXAM DATE AND TIME: 03/20/2023 10:40 AM HISTORY: Annual screening COMPARISON: Multiple exams dating back to 2008 TECHNIQUE: Bilateral digital breast tomosynthesis was performed in the CCand MLO projections. Computer aided detection with Seed[employer]Spark 3D 3.1was employed. TISSUE DENSITY: b. There [...] Maintenance Insurance MEDICAID - [place] Care Teams Sheet Metal Technician Relationship Specialty Start Date End Date Onel Miles PA [address] [place] [id number] PCP - General 05/07/24
--- NOTE | 2024-09-20 10:49 | A.OFFVIS_ITS ---
Vital Signs 09/20/24 11:07 Height 5 ft 3 in Weight 158 lb 4.67 oz BMI 28.0 BP 180/30 H Blood Pressure Location Lt brachial Position Sitting Pulse 79 Pulse Source Pulse Oximeter Pulse Oximetry (%) 98 Oxygen Delivery Method Room Air Intake Visit Reasons: RA/FM Intake Note: Patient presents for RA follow up. Varnish Melter Helper Required: Yes Varnish Melter Helper Language: Position Classifier Services: Varnish Melter Helper Present Varnish Melter Helper Name: Fracisco [id number] Information Interpreted: non-clinical & clinical Allergies No Known Allergies Allergy (Verified 09/20/24 11:03) Medication List - Last Reconciled 09/20/24 by Gemma Muse MD adalimumab (Humira(CF) Pen) 40 mg (0.4 mL) subcut Q2W atorvastatin 10 mg PO DAILY baclofen 10 mg PO BID PRN buspirone 15 mg PO TID cholecalciferol (vitamin D3) (Vitamin D3) 25 mcg PO DAILY fluoxetine 40 mg PO DAILY fluticasone propionate 50 mcg/actuation 1 spray intranasal DAILY PRN folic acid 1 mg PO DAILY gabapentin 300 mg (3 x 100 mg) PO BEDTIME 90 days latanoprost 0.005% 1 drp ophthalmic (eye) BEDTIME loratadine 10 mg PO DAILY methotrexate sodium 20 mg (8 x 2.5 mg) PO QWEEK 90 days omeprazole 40 mg PO DAILY polyvinyl alcohol 1.4% 1 drp ophthalmic (eye) BID prazosin 2 mg PO BEDTIME risperidone 3 mg PO BEDTIME sennosides (senna) 17.2 mg PO BEDTIME PRN tramadol 50 mg PO BID 90 days trazodone 300 mg PO BEDTIME HPI Comments Details: Patient is a 63-year-old female with hyperlipidemia, 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 Interval History: Patient last seen 05/01/24 with me. At that time her rheumatoid arthritis was in remission with no evidence of synovitis on examination however her remission is confounded by pains from osteoarthritis and fibromyalgia. Her Humira and methotrexate were continued and no escalation of therapy. Today, Patient reports she is the same Specifically complaining of right shoulder and right trapezius pain Went to pain management yesterday and received a steroid injection in her trapezius Rheumatologic History: Diagnosed with rheumatoid arthritis after presenting with inflammatory arthritis. RF and CCP negative Methotrexate August 2018-present Added Humira: January 2019- present Current Rheumatology Medication(s): Methotrexate 20 mg every week Folic acid 1 mg every day Humira 40 mg subQ every other week [facility] Medical History (Updated 09/20/24 @ 12:35 by Gemma Muse MD) Adalimumab (Humira) long-term use CHANDRAKANT positive Seronegative rheumatoid arthritis Hx of osteoarthritis CHANDRAKANT positive Family history of GERD History of vitamin D deficiency Hx of glaucoma Hx of rheumatoid arthritis Surgical History History of bilateral carpal tunnel release Hx of appendectomy Hx of hysterectomy Hx of cervical discectomy Family History Father Cancer Mother Diabetes Social History Alcohol intake: never Patient Tobacco Use Status: Never used Tobacco Review of Systems Const Details: Review of Systems Constitutional: Denies fever, chills, weight loss ENT: Denies vision changes, eye pain or eye redness, dental caries, dry mouth GI: Denies nausea, vomiting, diarrhea, abdominal pain, change in BM Pulm: Denies SOB, [place], hemoptysis, wheezing Cards: Denies chest pain, palpitations Skin: Denies Raynaud's, rash, nail changes, photosensitivity, SALES MARKETING COORDINATOR: Denies headaches, weakness, paresthesias, recurrent falls MSK: as per HPI All other systems reviewed and are unremarkable except noted above Physical Exam Vital Signs: Last Vital Signs Pulse 79 09/20/24 11:07 BP 180/30 H 09/20/24 11:07 Pulse Ox 98 09/20/24 11:07 Oxygen Delivery Method Room Air 09/20/24 11:07 BMI result Body Mass Index 28.0 Vital signs reviewed Physical Examination Patient well appearing and in no apparent painful distress Able to rise from chair without support. ?Gait normal. Constitutional Mucous membranes pink and moist patient alert and cooperative HEENT Conjunctiva and sclera clear. ?Pupils equal round and reactive to light. ?No lymphadenopathy. ?Normal dentition. Respiratory System Normal respiratory effort and able to speak in complete sentences. ?Clear to auscultation bilaterally. ?No crackles, rales, rhonchi, wheezes heard. Cardiac System Regular rate and rhythm. ?S1 and S2 heard no murmurs. ?Radial pulses intact bilaterally MSK No deformity, swelling, abnormalities noted to bilateral hands. ?No evidence of synovitis. ?Able to move all joints with full range of motion, without limitation. Hands:.??Normal pain-free range of motion without tenderness, swelling, increased warmth or erythema. Able to make a full fist and has a good senior quality engineer strength. Heberden's nodes noted. Wrists: Normal pain-free range of motion without tenderness, swelling, increased warmth or erythema. Elbows: Full range of motion without pain. No tenderness, weakness, swelling, increased warmth or erythema. Shoulders: TTP of right subacromial bursa Knees:.???Normal pain-free range of motion without tenderness, swelling, increased warmth or erythema.?No effusion or crepitations Ankles:.??Normal pain-free range of motion without tenderness, swelling, increased warmth or erythema. Feet:.??Normal pain-free range of motion without tenderness, swelling, increased warmth or erythema. Tender points:??Tenderness to digital palpation the trapezius, lateral epicondyle and occiput. Also tender to palpation of forearm muscles and upper arm muscles Results Reviewed Results Reviewed: Laboratory Tests 08/02/24 11:05 WBC 7.8 RBC 4.44 Hgb 12.9 Hct 39.2 Plt Count 292 ESR 19 Sodium 141 Potassium 3.9 Chloride 109 H Carbon Dioxide 25 BUN 18 H Creatinine 0.79 AST 17 ALT 16 Alkaline Phosphatase 89 C-Reactive Protein 0.20 Assessment & Plan Assessment & Plan (1) Seronegative rheumatoid arthritis: Comment: Methotrexate August 2018-present Added Humira: January 2019- present Code(s): M06.00 - Rheumatoid arthritis without rheumatoid factor, unspecified site Category: Medical Plan: #Seronegative RA Patient with seronegative rheumatoid arthritis currently in remission but this remission is confounded by osteoarthritis and fibromyalgia. I currently think her pain is related to fibromyalgia/osteoarthritis not her rheumatoid arthritis. We will continue her methotrexate and Humira at current doses. No escalation of therapy today. Plan - Humira 40mg SC every 2 weeks - Methotrexate 20mg every week - Folic acid 1mg daily - RTC 4 months - Labs before next visit: CBC, CMP, ESR, CRP, Hepatitis panel and T spot (2) Fibromyalgia: Code(s): M79.7 - Fibromyalgia Category: Medical Plan: #Fibromyalgia Doing well on gabapentin and tolerating same Exercises given for subacromial bursitis Plan - Continue gabapentin 300mg nightly - Tramadol 50mg bid - Encouraged daily stretching and activity (3) CHANDRAKANT positive: Code(s): R76.8 - Other specified abnormal immunological findings in serum Category: Medical Plan: #CHANDRAKANT positive Patient with CHANDRAKANT positive without signs or symptoms of an undifferentiated connective tissue disease currently being treated for seronegative rheumatoid arthritis. (4) detention methotrexate user: Code(s): Z79.899 - Other termite exterminator helper (current) drug therapy Category: Medical Plan: #Long-term Current Use of Methotrexate Discussed with patient the benefits and risks of methotrexate for managing their rheumatic condition Benefits include reduced pain, reduced mortality, maintenance of remission and reduction of flares Risks include oral ulcers, photosensitivity, hepatotoxicity, hematologic toxicity, pneumonitis, flu-like symptoms (especially day after administration), nodulosis, lymphomas ? Limit alcohol and avoid Bactrim ? Monitoring: ?CBC, BMP, LFTs Hepatitis serologies as needed (5) Encounter for medication monitoring: Code(s): Z51.81 - Encounter for therapeutic drug level monitoring Category: Medical Plan: #detention use of Tramadol Reviewed Vilma Discussed proper use of tramadol for the management of osteoarthritis and fibromyalgia pain (6) Adalimumab (Humira) long-term use: Code(s): Z79.620 - detention (current) use of immunosuppressive biologic Category: Medical Plan: #Long-term Use of TNF Inhibitors: Humira Discussed with the patient the benefits and risks of TNF inhibitors for the management of the rheumatic condition Benefits include reduce pain, maintenance of remission and reduction of flares as well as ?progression of the disease Risks include injection sites/infusion reactions, serious infections (such as bacterial infections, opportunistic infections), malignancy, delaminating syndromes, autoimmune phenomena, CHF exacerbations, palmar plantar psoriasis and cytopenias Recommended rotating injection sites, and holding medication during and for up to 1 week after resolution of a febrile illness or open skin wound Plan I spent 35 minutes reviewing the record and labs, seeing the patient, discussing the treatment plan and documenting in the medical record Medications: Refilled baclofen 10 mg PO BID PRN 60 tabs 0RF for pain M54.9 - Dorsalgia, unspecified folic acid 1 mg PO DAILY 90 tabs 3RF M06.00 - Rheumatoid arthritis without rheumatoid factor, unspecified site gabapentin Take 1 tablet at night for 2 weeks, then increase as tolerated until 3 tablets at night. 300 mg (3 x 100 mg) PO BEDTIME 90 days 270 caps 1RF M06.00 - Rheumatoid arthritis without rheumatoid factor, unspecified site, M47.22 - Other spondylosis with radiculopathy, cervical region, M47.26 - Other spondylosis with radiculopathy, lumbar region, M79.7 - Fibromyalgia, R76.8 - Other specified abnormal immunological findings in serum, Z51.81 - Encounter for therapeutic drug level monitoring, Z79.899 - Other retirement (current) drug therapy cholecalciferol (vitamin D3) (Vitamin D3) 25 mcg PO DAILY 60 caps 2RF E55.9 - Vitamin D deficiency, unspecified methotrexate sodium 20 mg (8 x 2.5 mg) PO QWEEK 90 days 104 tabs 1RF M06.00 - Rheumatoid arthritis without rheumatoid factor, unspecified site adalimumab (Humira(CF) Pen) 40 mg (0.4 mL) subcut Q2W 2 ea 4RF M06.00 - Rheumatoid arthritis without rheumatoid factor, unspecified site tramadol 50 mg PO BID 90 days 180 tabs 1RF pain M54.9 - Dorsalgia, unspecified Coding Level of Care Code Est Pt Level 4 (50893) Complex EM visit Add On G2211 Diagnoses Seronegative rheumatoid arthritis M06.00 Fibromyalgia M79.7 CHANDRAKANT positive R76.8 detention methotrexate user Z79.899 Encounter for medication monitoring Z51.81 Adalimumab (Humira) long-term use Z79.747
[2024-09-20 11:07] VITALS: BP 180/30; PULSE 79; O2SAT 98; BMI 28.0
== END 2024-09-20 11:34 | disposition home or self-care (01) ==
LOC: HO.RHE 10:38
PROVIDERS: PCP Physician Assistant; Visit Provider Student in an Organized Health Care Education/Training Program
DX: M06.00 Rheumatoid arthritis without rheumatoid factor, unspecified site (principal); M79.7 Fibromyalgia; R76.8 Other specified abnormal immunological findings in serum; Z79.899 Other long term (current) drug therapy; Z51.81 Encounter for therapeutic drug level monitoring; Z79.620 Long term (current) use of immunosuppressive biologic
CPT/HCPCS: 99214

== ENCOUNTER → 2024-09-20 10:37 | Outpatient (BNVA) | payer MEDICAID, SELFPAY | PROVIDERS: PCP Physician Assistant; Visit Provider Student in an Organized Health Care Education/Training Program | DX: M06.00 Rheumatoid arthritis without rheumatoid factor, unspecified site (principal); M79.7 Fibromyalgia; R76.8 Other specified abnormal immunological findings in serum; Z51.81 Encounter for therapeutic drug level monitoring; Z79.899 Other long term (current) drug therapy; Z79.620 Long term (current) use of immunosuppressive biologic | CPT/HCPCS: 99212 ==

== ENCOUNTER 2024-12-31 11:12 | Outpatient (REF) | payer MEDICAID, SELFPAY ==
[2024-12-31 11:23] LABS: MANUAL DIFF FLAG NO
[2024-12-31 12:15] LABS: Hematocrit 36.0 % (37.0-47.0); Hemoglobin 11.8 g/dl (12.0-16.0); Imm Gran Abs Auto 0.02 X10*3/uL (0.00-0.03); Imm Gran Pct Auto 0.3 % (0.0-0.4); Lymphocytes Absolute Auto 2.4 X10*3/uL (1.2-4.9); Mean Corpuscular HGB Conc 32.8 g/dl (31.0-35.0); Mean Corpuscular Hemoglobin 28.8 pg (27.0-33.0); Mean Corpuscular Volume 87.8 fL (80.0-98.0); NRBC Abs Auto 0.000 X10*3/uL (0.0-0.012); NRBC Pct Auto 0.0 /100WBC (0.0-0.2); Platelet Count 270 X10*3/uL (160-400); Red Blood Count 4.10 X10*6/uL (4.20-5.50); White Blood Count 7.4 X10*3/uL (4.8-10.8)
--- OUTSIDE RECORDS SUMMARY | 2024-12-31 12:47 | XMS_ITS | Clinical Summary ---
Author Organization [facility] Address [address] [place] [address] Care Team Providers Care Senior Technical Support Analyst Name Role Phone Onel James PA-C Primary Care Provider Source Comments PLEASE NOTE, if this patient is a minor, it may be UNLAWFUL to discuss sensitive information that is contained in these records (such as FAMILY PLANNING, MENTAL HEALTH or SUBSTANCE ABUSE) with the minor patient's parent or other person without the patient's specific authorization.[facility] Allergies No known active allergies Medications doxepin (SINEQUAN) 10 mg capsule TK 1 C PO QD HS 2 9 Active TENS unitsIndications :Chronic midline back pain, unspecified back location,Cervica l disc disorder Use as needed for neck/shoulder pain. Dx: M54.9, M50.90. Length: Lifetime 1 Device 9 Active TENS unit electrodes 2X2 Indications:Chr onic midline back pain, unspecified back location,Cervica l disc disorder Use as needed for neck/shoulder pain. Dx: M54.9, M50.90. Length: Lifetime 6 Each 1 9 Active HUMIRA,CF, PEN 40 mg/0.4 mL pnkt 0 Active methotrexate sodium 2.5 mg tablet TK 8 TS PO Q WEEK 0 Active prazosin (MINIPRESS) 2 mg capsule TK 2 CS PO HS 0 Active BANOPHEN 25 mg capsuleIndicatio ns:Seasonal allergic rhinitis, unspecified trigger TAKE 1 CAPSULE BY MOUTH EVERY 6 HOURS NEEDED FOR ALLERGIES 60 Capsule 1 1 Active folic acid (FOLVITE) 1 mg tablet Take 1,000 mcg by mouth once daily 2 Active VITAMIN D3 25 mcg (1,000 unit) capsule Take 1 Capsule by mouth once daily 2 Active FLUoxetine (PROZAC) 40 mg capsule Take 1 Capsule by mouth once daily 2 Active hydrOXYzine HCL (ATARAX) 50 mg tablet Take 1 Tablet by mouth nightly at bedtime as needed for sleep 2 Active risperiDONE (RISPERDAL) 2 mg tablet Take 1 Tablet by mouth nightly at bedtime 2 Active traMADoL (ULTRAM) 50 mg tablet Take 50 mg by mouth 2 (two) times daily as needed for pain 3 Active latanoprost (XALATAN) 0.005 % ophthalmic solution PLACE ONE DROP INTO EN LOS DOS OJOS AL ACOSTARSE 7.5 mL 1 3 Active famotidine (PEPCID) 20 mg tabletIndication s:Gastroesophage al reflux disease, unspecified whether esophagitis present TAKE 1 TABLET BY MOUTH EVERY NIGHT AT BEDTIME NEEDED FOR HEARTBURN 90 Tablet 1 4 Active SENNA 8.6 mg tabletIndication s:Constipation, unspecified constipation type TAKE 2 TABLETS BY MOUTH AT BEDTIME NEEDED FOR CONSTIPATION 180 Tablet 3 5 Active atorvastatin (LIPITOR) 10 mg tabletIndication s:Dyslipidemia Take 1 Tablet by mouth once daily 90 Tablet 1 5 Active cetirizine (ZYRTEC) 10 mg tabletIndication s:Seasonal allergic rhinitis, unspecified trigger Take 1 Tablet by mouth once daily 90 Tablet 1 5 Active mometasone (NASONEX) 50 mcg/actuation nasal sprayIndications :Seasonal allergic rhinitis, unspecified trigger,Elevated BP without diagnosis of hypertension Place 2 Sprays in both nostrils once daily 17 g 5 Active meclizine (ANTIVERT) 25 mg tabletIndication s:Dizziness Take 1 Tablet by mouth once daily as needed for nausea 30 Tablet 3 5 Active lisinopriL 10 mg tabletIndication s:Primary hypertension Take 1 Tablet by mouth once daily. 90 Tablet 1 5 Active omeprazole (PRILOSEC) [address] capsuleIndicatio ns:Gastroesophag eal reflux disease, unspecified whether esophagitis present TAKE 1 CAPSULE BY MOUTH EVERY MORNING BEFORE BREAKFAST 30 Capsule 5 Active Active Problems Problem Noted Date Diagnosed Date Seronegative rheumatoid arthritis ([facility] ) 02/20/2024 Arthralgia 03/05/2020 Cervical radiculopathy 10/04/2018 Left ovarian [...] 01/19/2017 Overview (08/31/2017): MRI C spine( 12/26/16, [facility]): At C2-C3, there is mild anterolisthesis. [...] GERD (gastroesophageal reflux disease) 7 Overview (07/20/2017): [facility] 07/13/2017 Emphysematous disease. Patient [...] has been on Tramadol from doctors in [place]. 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 MRI C spine( 12/26/16, [facility]): At C2-C3, there is mild anterolisthesis. [...] the cord at this level. Bipolar disorder ([facility]) 08/26/2016 Overview (11/07/2016): Used to follow Psychiatry in [place]. Following at [facility]. Says that psychiatry appt is on Dec. Need refills till then Seasonal allergic rhinitis 08/26/2016 Overview (10/07/2017): Allergic to ragweed pollen, cattle dander, dust mites, horse dander and cockroach, declines allegy shots, flonase and loratidine, FU in 1 month Resolved Problems Problem Noted Date Diagnosed Date Resolved Date Essential hypertension 08/26/201601/07 Overview (08/26/2016): Controlled w/o meds Immunizations Immunization Administration Dates Next Due Flu, [...] Sign Reading Time Taken Comments Blood Pressure 146/68 08/29/2024 10:20 AM EDT Pulse 84 08/29/2024 10:20 AM EDT Temperature 36.7 C (98.1 F) 08/29/2024 10:20 AM EDT Respiratory Rate 18 08/29/2024 10:20 AM EDT Oxygen Saturation 96% 08/29/2024 10:20 AM EDT Inhaled Oxygen Concentration - - Weight 72.1 kg (159 lb) 08/29/2024 10:20 AM EDT Height 160 cm (5' 3 ) 08/29/2024 10:20 AM EDT Body Mass Index 28.17 08/29/2024 10:20 AM EDT Plan of Treatment Health Maintenance Due Date Last Done Comments HPV Screening [address] Colonography 09/17/2007 Colonoscopy 09/17/2007 Fecal DNA 09/17/2007 Flexible Sigmoidoscopy 09/17/2007 Imm-Pneumococcal 50+ (2 of 2 - PPSV23, PCV20, or PCV21) 04/03/2019 02/06/2019 Pap + HPV 08/09/2021 08/09/2018 Pap Smear 08/09/2021 08/09/2018, 07/30, 02/17/2015 (Managed by Outside Provider) [id number] ( season) 2023 03/28/2023, 03/16/2022, 05/17/2021, Additional history exists Colorectal Cancer Screening 04/09/2024 FIT/gFOBT 04/09/2024 04/09/2023, 01/29, 04/14/2017 Imm-Influenza (#1) 2024 02/22/2024, 1 05/28/2022, 02/18/2022, Additional history exists Annual Wellness (Adult): Indicated (All Coverage) 08/29/2025 08/29/2024, 03/28/2023, 03/16/2022, Additional history exists Anxiety Screening 08/29/2025 08/29/2024 Diabetes Screening 08/29/2025 08/29/2024, 0 08/29/2024, 05/07/2024, Additional history exists Lipid Screening 08/29/2025 08/29/2024, 03/02, 03/22/2022, Additional history exists Tobacco Screening 08/29/2025 08/29/2024 Breast Cancer Screening (Mammogram) 11/19/2025 11/19/2024, 03/20/2023, 01/28/2021, Additional history exists Imm-DTaP/Tdap/Td (2 - Td or Tdap) 04/26/2027 017 HIV Screening Completed 04/27/2017 Hepatitis C Screening Completed 08/25/2017, 017 Imm-Zoster, Recombinant Completed 11/24/2021, 09/23 Alcohol and Drug Screen Completed 08/30/19, 08/24/2022, 03/16/2022, Additional history exists Depression Annual Screen Completed 08/29/2024 Cervical Ablation/Cold-Knife Conization Discontinued Cervical Cancer Screening Discontinued Cervical Cryotherapy Discontinued Colposcopy Discontinued Endometrial Biopsy Discontinued Excision/Leep Discontinued HPV Genotyping Discontinued Vaginal Pap Discontinued Vulvoscopy Discontinued Procedures Procedure Name Priority Date/Time Associated Diagnosis Comments HISTORIC MAMMOGRAM 11/19/2024 3: 00 AM EDT HEMOGLOBIN GLYCOSYLATED A1C Routine 08/29/2024 10:28 AM EDT Prediabetes LIPID PANEL Routine 08/29/2024 10:28 AM EDT Dyslipidemia FECAL GLOBIN BY IMMUNOCHEM (MEDICARE) Routine 04/09/2023 7:00 PM EST Screening for colorectal cancer PAP, LIQUID BASED Routine 08/09/2018 3:0 3 PM EDT Encounter for well woman exam with routine gynecological exam HEPATITIS C ANTIBODY Routine 08/25/2017 9:36 AM EDT Screen for sexually transmitted diseases ANTIBODY HIV-1&HIV-2 SINGLE RESULT Routine 04/27/2017 9:30 AM EST Encounter for routine adult medical examination from Last 3 Months or Most Recently Relevant to Health Maintenance Results * HISTORIC MAMMOGRAM (11/19/2024 3:00 AM EDT) 11/19/2024 3:00 AM EDT us Onel James PA-C IMG MAMMO Final Result * (ABNORMAL) HEMOGLOBIN GLYCOSYLATED A1C (08/29/2024 10:28 AM EDT) HEMOGLOBIN A1C 5.8(H) <5.7 % [facility] Comment: For someone without known diabetes, a hemoglobin A1c value between 5.7% and 6.4% is consistent with prediabetes and should be confirmed with a follow-up test. For someone with known diabetes, a value <7% indicates that their diabetes is well controlled. A1c targets should be individualized based on duration of diabetes, age, comorbid conditions, and other considerations. This assay result is consistent with an increased risk of diabetes. Currently, no consensus exists regarding use of hemoglobin A1c for diagnosis of diabetes for children. Blood Blood / Unknown 08/29/2024 1 0:28 AM EDT 08/29/2024 10:29 AM EDT Narrative [facility] - 08/30/2024 8:56 AM EDT FASTING:NO us Onel James PA-C LAB - BLOOD DRAW Edited Resu lt - Final [facility] [address] [address], [facility] [address] [place] [address] * (ABNORMAL) LIPID PANEL (08/29/2024 10:28 AM EDT) CHOLESTEROL, TOTAL 293(H) <200 mg/dL [facility] HDL CHOLESTEROL 55 > OR = 50 mg/dL [facility] TRIGLYCERIDES 149 <150 mg/dL [facility] LDL-CHOLESTEROL 207(H) 99 mg/dL (calc) [facility] Comment: LDL-C levels > or = 190 mg/dL may indicate familial hypercholesterolemia (FH). Clinical assessment and measurement of blood lipid levels should be considered for all first degree relatives of patients with an FH diagnosis. LDL Cholesterol (LDL-C) levels > or = 300 mg/dL may indicate homozygous familial hypercholesterolemia (HoFH). Untreated, these extremely high LDL-C levels can result in premature CV events and mortality. Patients should be identified early and provided appropriate interventions to reduce the cumulative LDL-C burden from . For questions about testing for familial hypercholesterolemia, please call [facility] [employer] [facility] at [phone].[employer].INFO. Carli T, et al. J National Lipid Association Recommendations for Patient-Centered Management of Dyslipidemia: Part 1 Journal of Clinical Lipidology 2015;9(2), 129-169. Blade Banuelos et al. (2014). Homozygous familial hypercholesterolaemia: new insights and guidance for clinicians to improve detection and clinical management. Heart Journal, 35(32), 4337-4771. Reference range: <100 Desirable range <100 mg/dL for primary prevention; <70 mg/dL for patients with CHD or diabetic patients with > or = 2 CHD risk factors. LDL-C is now calculated using the Sorin-Martha calculation, which is a validated novel method providing better accuracy than the Friedewald equation in the estimation of LDL-C. Sorin MONROY et al. TAHIRA. 2013;310(19): 2890-3913 (http://education.Cardpool/faq/VTO216) CHOL/HDLC RATIO 5.3(H) <5.0 (calc) [facility] NON-HDL CHOLESTEROL 238(H) <130 mg/dL (calc) [employer] Comment: Non-HDL level > or = 220 is very high and may indicate genetic familial hypercholesterolemia (FH). Clinical assessment and measurement of blood lipid levels should be considered for all first-degree relatives of patients with an FH diagnosis. For patients with diabetes plus 1 major ASCVD risk factor, treating to a non-HDL-C goal of <100 mg/dL (LDL-C of <70 mg/dL) is considered a therapeutic option. Blood Blood / Unknown 08/29/2024 1 0:28 AM EDT 08/29/2024 10:29 AM EDT Narrative [facility] - 08/30/2024 8:56 AM EDT FASTING:NO us Onel James PA-C LAB - BLOOD DRAW Final Resul t Performing Organization Address [facility] Co de Phone Number [facility] [address] [place] [address], [employer] [address] [place] [phone] * FIT SCREENING (04/09/2023 7:00 PM EST) FECAL GLOBIN BY IMMUNOCHEMISTRY See Note [employer] Comment: FECAL GLOBIN BY IMMUNOCHEMISTRY Micro Number: [id number] Test Status: Final Specimen Source: Insure (tm) fobt test card Specimen Quality: Adequate Fecal Globin: Not Detected Stool Stool specimen / Unknown 04/09/2023 7:00 PM EST 04/15/2023 5:40 AM EST us Onel James PA-C LAB BODY FLUIDS AND STOOLS A MBULATORY Final Result Performing Organization Address [facility] Co de Phone Number [facility] [address] [place] [phone], [employer] [address] [place] [phone] * PAP, LIQUID BASED (08/09/2018 3:03 PM EDT) Swab of endocervix (specimen) Endocervical structure / Unknown 08/09/2018 3:03 PM EDT Impressions [facility] - 08/09/2018 3:03 PM EDT Thinprep pap: Negative for squamous intraepithelial lesion and malignancy HPV: negative Louann Minor INCLUSION PARAEDUCATOR LAB - PATHOLOGY AND CYTOLOGY AMB ULATORY Final Result Performing Organization Address [facility]/ZIP Co de Phone Number [facility] [address] [place] [address], * HEPATITIS C ANTIBODY (08/25/2017 9:36 AM EDT) HEPATITIS C VIRUS SCREEN NEGATIVE NEGATIVE [facility] Blood specimen (specimen) Blood / Unknown 08/25/2017 9:36 AM EDT 08/25/2017 10:[address] [facility] - 08/25/2017 12:58 PM EDT [place] [address] [place] [id number] PT ID [id number] ORD# [id number] Yanet Johnson OFFICE MAIL CLERK LAB - BLOOD DRAW Final Result Performing Organization Address [facility] Co de Phone Number [facility] [address] [place] [address], * HIV-1 & HIV-2 ANTIBODIES (04/27/2017 9:30 AM EST) Pathologist [facility] HIV 1 AND 2 ANTIBODY SCREEN NEGATIVE NEGATIVE [facility] Comment: This assay is a 4th generation assay allowing for earlier detection of HIV infection by detecting the presence of the HIV-1 p24 antigen as well as the traditional antibodies to HIV type 1 (including group O) and type 2. Use of a 4th generation assay is the current CDC recommendation for HIV screening. Blood specimen (specimen) Blood / Unknown 04/27/2017 9:30 AM EST 04/27/2017 9:[address] [facility] - 04/27/2017 12:42 PM EST [place] [address] [place] [address] PT ID [id number] ORD# [id number] us Yanet M Alex OFFICE MAIL CLERK LAB - BLOOD DRAW Final Result [facility] [address] [place] [address], from Last 3 Months or Most Recently Relevant to Health Maintenance Insurance [employer]AF[employer] NET DENTAL [facility] [place] [address] [facility] Care Teams Senior Technical Support Analyst Relationship Specialty Start Date End Date Onel James PA-C [address] [place] [address] PCP - General FAMILY MEDICINENEHEMIAS 08/27/21
--- OUTSIDE RECORDS SUMMARY | 2024-12-31 12:47 | XMS_ITS | Clinical Summary ---
Author Organization [address] Address [address] [place] [address] Phone Care Team Providers Care Two Way Radio Installer Name Role Phone Onel James Primary Care Provider [phone] Allergies No known active allergies Medications atorvastatin (LIPITOR) 10 mg tablet Take 1 tablet (10 mg total) by mouth daily. 9 Active mometasone (NASONEX) 50 mcg/actuation nasal spray Administer 2 sprays into each nostril 1 (one) time each day. Active Encounters Date Type Department Care Team Description 11/19/2024 9:47 AM EDT - 11/19/2024 11:59 PM EDT [facility] [address] [place] [address] Encounter for screening mammogram for malignant neoplasm of breast Discharge Disposition: Home or Self Care from Last 3 Months Surgical History Surgery Date Site/Laterality Comments APPENDECTOMY 04/26/2017 PROCEDURE: HISTORICAL APPENDECTOMY HYSTERECTOMY PROCEDURE: HISTORICAL HYSTERECTOMY; COMMENT: ovaries retained STEREOTACTIC CORE BIOPSY Right Medical History Medical History Date Comments Left [...] X:Essential hypertension, benign Bipolar disorder, unspecifie d ([facility] V24, [facility] V28) 08/26/2016 DX:Bipolar disorder, unspeci fied ([facility]) Seasonal allergies 08/26/2016 DX:Seasonal a llergies Paroxysmal [...] = 0.6 oz pur e alcohol) Comments No Sex and Gender Information Value Date Recorded Sex Assigned at Female 09/19/2024 9:44 AM EDT Legal Sex Female 4:16 AM EST Gender Identity Female 09/19/2024 9:44 AM EDT Sexual Orientation Straight 09/19/2024 9: 44 AM EDT Obstetrics History Para Term AB IAB SAB Ectopic Multiple Livin g Live Births 3 Plan of Treatment Health Maintenance Due Date Last Done Comments Pneumococcal Vaccine: 50+ Years (2 of 2 - PPSV23) 02/07/2020 02/06/2019 Cervical Cancer Screening: Pap Smear 08/09/2021 08/09/2018 Social Influencers of Health Screening 04/03/2022 Colorectal Cancer Screening: Stool Based Tests (FOBT/FIT) 04/09/2024 04/09/2023 Depression Screening 05/01/2024 COVID-19 Vaccine ( season) 2024 03/28/2023, 03/16/2022, 05/17/2021, Additional history exists Influenza Vaccine (#1) 2024 , 03/28/2023, 02/18/2022, Additional history exists Hypertension/CHF/CAD Annual BMP Blood Test 08/29/2025 08/29/2024, 05/07/2024, 03/28/2023 Breast Cancer Screening 11/19/2026 11/20/19 25, 03/20/2023, 03/16/2022, Additional history exists DTaP,Tdap,and Td Vaccines (2 - Td or Tdap) 04/26/2027 04/26/2017 Cholesterol Screening (Lipid Panel) 08/29/2029 08/29/2024, 08/29/2024, 03/28/2023, Additional history exists RSV Immunization Adult Patients (1 - 1-dose 75+ series) 2037 HIV Screening Completed 04/27/2017 Hepatitis C Screening Completed 08/25/2017, 018 Zoster Vaccines Completed 11/24/2021, 09/23/2021 HIB Vaccines Aged Out No longer eligi [...] Procedure Name Priority Date/Time Associated Diagnosis Comments MG MAMMO DIGITAL SCREENING W JORDON BILAT Routine 11/19/2024 10:07 AM EDT Encounter for screening mammogram for malignant neoplasm of breast COMPREHENSIVE METABOLIC PANEL Routine 05/07/2024 10:35 AM EST Posttraumatic stress disorder from Last 3 Months or Most Recently Relevant to Health Maintenance Results * MG Mammo Digital Screening w Jordon bilat (11/19/2024 10:07 AM EDT) Anatomical Region Laterality Modality Breast Bilateral Mammography 11/19/2024 11:3 4 AM EDT Impressions 11/19/2024 11:37 AM EDT No evidence of breast malignancy. BI-RADS CATEGORY: 1 - NEGATIVE RECOMMENDATION: Screening bilateral mammogram is recommended in 1 year. [facility] Location[facility] , [address] [place] [address], [id number], . -------- FINAL REPORT -------- Dictated By: Faustina Johnson Dictated Date: 11/19/2024 11:34 ET Assigned Physician: Faustina Johnson Reviewed and Electronically Signed By: Faustina Johnson Signed Date: 11/19/2024 11:37 ET Workstation ID: [id number] Transcribed By: Self Edit Transcribed Date: 11/19/2024 11:34 ET Narrative 11/19/2024 11:37 AM EDT CLINICAL: 64 years old, Female, routine annual exam. COMPARISON: 03/20/2023, 03/16/2022, 01/28/2021 and 12/06/2018 TECHNIQUE: Bilateral MLO and CC views were obtained digitally with 3-D mammogram (digital breast tomosynthesis). Computer-aided detection was utilized in evaluation of this exam (CAD). FINDINGS: There is no evidence of suspicious mass or architectural distortion. No worrisome calcifications are evident. There has been no significant change from prior exam(s). BREAST DENSITY: B - There are scattered areas of fibroglandular density. Procedure Note Faustina Johnson MD - 11/19/2024 CLINICAL: 64 years old, Female, routine annual exam. COMPARISON: 03/20/2023, 03/16/2022, 01/28/2021 and 12/06/2018 TECHNIQUE: Bilateral MLO and CC views were obtained digitally with 3-Dmammogram (digital breast tomosynthesis). Computer-aided detection wasutilized in evaluation of this exam (CAD). FINDINGS: There is no evidence of suspicious mass or architectural distortion. Noworrisome calcifications are evident. There has been no significantchange from prior exam(s). BREAST DENSITY: B - There are scattered areas of fibroglandular density. IMPRESSION: No evidence of breast malignancy. BI-RADS CATEGORY: 1 - NEGATIVE RECOMMENDATION: Screening bilateral mammogram is recommended in 1 year. [facility] Location[facility] , [address] [place] [address], [id number], . -------- FINAL REPORT -------- Dictated By: Faustina Johnson Dictated Date: 11/19/2024 11:34 ET Assigned Physician: Faustina Johnson Reviewed and Electronically Signed By: Faustina Johnson Signed Date: 11/19/2024 11:37 ET Workstation ID: [id number] Transcribed By: Self Edit Transcribed Date: 11/19/2024 11:34 ET Onel DEL CID IMG BI PROCEDURES Final Result * (ABNORMAL) Comprehensive metabolic panel (05/07/2024 10:35 AM EST) Sodium 138 133 - 145 mmol/L LAB CHEMISTRY METHOD 05/07/2024 11:30 AM [facility] Potassium 4.2 3.5 - 5.5 mmol/L LAB CHEMISTRY METHOD 05/07/2024 11:30 AM [facility] Chloride 106 96 - 110 mmol/L LAB CHEMISTRY METHOD 05/07/2024 11:30 AM [facility] CO2 28 21 - 32 mmol/L LAB CHEMISTRY METHOD 05/07/2024 11:30 AM [facility] Anion Gap 4 3 - 11 LAB CHEMISTRY METHOD 05/07/2024 11:30 AM [facility] Glucose 103(H) 70 - 100 mg/dL LAB CHEMISTRY METHOD 05/07/2024 11:30 AM [facility] BUN 19 5 - 25 mg/dL LAB CHEMISTRY METHOD 05/07/2024 11:30 AM [facility] Creatinine 0.68 0.50 - 1.10 mg/dL LAB CHEMISTRY METHOD 05/07/2024 11:30 AM [facility] eGFR 99 >=60 mL/min/1. 73m2 LAB CHEMISTRY METHOD 05/07/2024 11:30 AM [facility] Comment:Calculation based on the Chronic Kidney Disease Epidemiology Collaboration (CKD-EPI) equation refit without adjustment for race. BUN/Creatinine Ratio 27.9 LAB CHEMISTRY METHOD 05/07/2024 11:30 AM [facility] Calcium 9.0 8.5 - 10.5 mg/dL LAB CHEMISTRY METHOD 05/07/2024 11:30 AM [facility] AST (SGOT) 11 10 - 42 unit/L LAB CHEMISTRY METHOD 05/07/2024 11:30 AM [facility] ALT (SGPT) 18 10 - 60 unit/L LAB CHEMISTRY METHOD 05/07/2024 11:30 AM [facility] Alkaline Phosphatase 97 42 - 121 unit/L LAB CHEMISTRY METHOD 05/07/2024 11:30 AM [facility] Total Protein 6.9 6.0 - 8.0 g/dL LAB CHEMISTRY METHOD 05/07/2024 11:30 AM [facility] Albumin 3.6 3.2 - 5.0 g/dL LAB CHEMISTRY METHOD 05/07/2024 11:30 AM [facility] Total Bilirubin 0.3 0.0 - 1.4 mg/dL LAB CHEMISTRY METHOD 05/07/2024 11:30 AM [facility] Blood Venous blood specimen / Unknown Venipuncture / Unknown 05/07/2024 10:35 AM EST 05/07/2024 10:46 AM EST us Madisyn Patel NP LAB BLOOD ORDERABLES Final Resul t [facility] [address] [place] [address], from Last 3 Months or Most Recently Relevant to Health Maintenance Insurance MEDICAID - [place] Care Teams Two Way Radio Installer Relationship Specialty Start Date End Date Onel James PA [address] [place] [id number] PCP - General 05/07/24
--- OUTSIDE RECORDS SUMMARY | 2024-12-31 12:47 | XMS_ITS | Clinical Summary ---
Author Organization [facility] Address [address] [place] [address] Care Team Providers Care Ethnology Teacher Name Role Phone Unavailable Primary Care Provider Unavailabl e Encounters Date Type Department Care Team Description 11/19/2024 Population Health Risk Score [facility] (C3) Department [address] [id number] Provider, Population Health Generic from Last 3 Months Social History Tobacco Use Types Packs/Day Years Used Date Smoking Tobacco: Never Assessed Comments Unknown Sex and Gender Information Value Date Recorded Sex Assigned at Not on file Legal Sex Female 9:30 PM EDT Gender Identity Not on file Sexual Orientation Not on file Plan of Treatment Health Maintenance Due Date Last Done Comments CT Colonography 1962 Colonoscopy 1962 Depression Screening 1962 FIT DNA/Cologuard 1962 FOBT 1962 SDOH Screening 1962 Sigmoidoscopy 1962 Disability Screening 1962 Alcohol/Substance Use Screening 1974 Tobacco Screening 1974 Hepatitis C Screening 1980 Pap Smear 09/17/1983 Cervical Cancer Screening 1992 HPV/Cotest 1992 Mammogram 2002 Zoster Vaccines (1 of 2) 2012 Pneumococcal Vaccine: 50+ Years (2 of 2 - PPSV23) 02/07/2020 02/06/2019 RSV Patients and Patients Aged 60 years or older (1 - Risk 60-74 years 1-dose series) 2022 Colorectal Cancer Screening 04/09/2024 FIT 04/09/2024 04/09/2023 COVID-19 Vaccine ( season) 2024 03/28/2023, 03/16/2022, 05/17/2021, Additional history exists Influenza Vaccine (#1) 2024 3, 02/18/2022, 02/21/2018, Additional history exists DTaP/Tdap/Td Vaccines (2 - Td or Tdap) 04/26/2027 04/26/2017 HIV Screening Completed 04/27/2017 HIB Vaccines Aged Out No longer eligi [...] patient's age to complete this topic Meningococcal Vaccine Aged Out No ray patrick eligible based on patient's age to complete this topic RSV under 20 months Aged Out No longe r eligible based on patient's age to complete this topic Rotavirus Vaccines Aged Out No longer eligible based on patient's age to complete this topic
[2024-12-31 12:52] LABS: Alanine Aminotransferase 14 U/L (0-31); Albumin Level 4.0 g/dL (3.5-5.0); Alkaline Phosphatase 79 U/L (39-117); Anion Gap 9 (12-20); Aspartate Amino Transferase 19 U/L (5-31); Blood Urea Nitrogen 17 mg/dL (9-16); Calcium 9.0 mg/dL (8.4-10.2); Carbon Dioxide 30 mmol/L (22-29); Chloride 107 mmol/L (96-108); Estimated Glomerular Filt Rate > 60; Potassium 4.3 mmol/L (3.3-5.1); Sodium 142 mmol/L (135-145); Total Protein 6.7 g/dL (6.5-8.0)
[2025-01-01 08:39] LABS: HBS Num1 0.55 mIU/mL (0-7.99); HBc Num1 0.09 S/CO (0.00-0.79); HBsAGNum1 0.39 S/CO (0.00-0.99); Hepatitis A Antibody IgM 0.13 Index (0-0.79); Hepatitis B Surface Antigen Negative (Negative); ~HepC Num1 0.09 S/CO (0.00-0.79); ~Hepatitis A Antibody IgM Nonreactive (Nonreactive); ~Hepatitis B Surface Antibody NONREACTIVE (Nonreactive); ~Hepatitis C Antibody Nonreactive (Nonreactive)
[2025-01-03 10:09] LABS: TS Negative Control Passed; TS Panel A 1; TS Panel B 4; TS Positive Control Passed; TSpotTB Negative (Negative)
== END 2024-12-31 11:13 | disposition home or self-care (01) ==
LOC: HO.LAB 11:12
PROVIDERS: PCP Physician Assistant; Visit Provider Student in an Organized Health Care Education/Training Program
DX: M06.00 Rheumatoid arthritis without rheumatoid factor, unspecified site (principal); Z01.84 Encounter for antibody response examination; Z11.1 Encounter for screening for respiratory tuberculosis; Z11.59 Encounter for screening for other viral diseases
CPT/HCPCS: 36415; 80053; 85025; 86140; 86481; 86704; 86706; 86709; 86803; 87340

== ENCOUNTER 2025-01-17 10:23 | Outpatient (AMB) | payer MEDICAID, SELFPAY ==
--- NOTE | 2025-01-17 10:25 | A.OFFVIS_ITS ---
Vital Signs 01/17/25 10:33 Height 5 ft 3 in Weight 150 lb 9.211 oz BMI 26.7 BP 118/76 Blood Pressure Location Lt brachial Position Sitting Pulse 81 Pulse Source Pulse Oximeter Pulse Oximetry (%) 95 Oxygen Delivery Method Room Air Intake Visit Reasons: RA/FM Intake Note: Patient presents for RA follow up. Employment Supervisor Required: Yes Employment Supervisor Language: Mat [employer] Services: Employment Supervisor Present Employment Supervisor Name: Venkata [phone] Information Interpreted: non-clinical & clinical Allergies No Known Allergies Allergy (Verified 01/17/25 10:33) Medication List - Last Reconciled 01/17/25 by Gemma Muse MD adalimumab (Humira(CF) Pen) 40 mg (0.4 mL) subcut Q2W atorvastatin 10 mg PO DAILY baclofen 10 mg PO BID PRN buspirone 15 mg PO TID cholecalciferol (vitamin D3) (Vitamin D3) 25 mcg PO DAILY diclofenac sodium 1% (Arthritis Pain (diclofenac)) 2 grams topical QID fluoxetine 40 mg PO DAILY fluticasone propionate 50 mcg/actuation 1 spray intranasal DAILY PRN folic acid 1 mg PO DAILY gabapentin 300 mg (3 x 100 mg) PO BEDTIME 90 days latanoprost 0.005% 1 drp ophthalmic (eye) BEDTIME loratadine 10 mg PO DAILY methotrexate sodium 20 mg (8 x 2.5 mg) PO QWEEK 90 days omeprazole 40 mg PO DAILY polyvinyl alcohol 1.4% 1 drp ophthalmic (eye) BID prazosin 2 mg PO BEDTIME risperidone 3 mg PO BEDTIME sennosides (senna) 17.2 mg PO BEDTIME PRN tramadol 50 mg PO BID 90 days trazodone 300 mg PO BEDTIME HPI Comments Details: Patient is a 64-year-old female with hyperlipidemia, 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 Interval History: Patient last seen 09/20/24 with me. - On Methotrexate 20mg every week, Humira 40mg SC every 2 weeks and folic acid 1 mg daily - Specifically complaining of right shoulder and right trapezius pain - Went to pain management and received a steroid injection in her trapezius - Exercises given for subacromial bursitis - Chronic pain attributed to fibromyalgia and OA Today - Methotrexate 20mg every week, Humira 40mg SC every 2 weeks and folic acid 1 mg daily - Did the exercises for subacromial bursitis and felt that was helpful - Also felt the injection from pain management was helpful - Today complaining of bilateral elbow pain, for past 5 months Rheumatologic History: Diagnosed with rheumatoid arthritis after presenting with inflammatory arthritis. RF and CCP negative Methotrexate August 2018-present Added Humira: January 2019- present Current Rheumatology Medication(s): Methotrexate 20 mg every week Folic acid 1 mg every day Humira 40 mg subQ every other week [facility] Medical History (Updated 09/20/24 @ 12:35 by Gemma Muse MD) Adalimumab (Humira) long-term use CHANDRAKANT positive Seronegative rheumatoid arthritis Hx of osteoarthritis CHANDRAKANT positive Family history of GERD History of vitamin D deficiency Hx of glaucoma Hx of rheumatoid arthritis Surgical History History of bilateral carpal tunnel release Hx of appendectomy Hx of hysterectomy Hx of cervical discectomy Family History Father Cancer Mother Diabetes Social History Alcohol intake: never Patient Tobacco Use Status: Never used Tobacco Review of Systems Const Details: Review of Systems Constitutional: Denies fever, chills, weight loss ENT: Denies vision changes, eye pain or eye redness, dental caries, dry mouth GI: Denies nausea, vomiting, diarrhea, abdominal pain, change in BM Pulm: Denies SOB, [place], hemoptysis, wheezing Cards: Denies chest pain, palpitations Skin: Denies Raynaud's, rash, nail changes, photosensitivity, COMMUNICATIONS STRATEGIST: Denies headaches, weakness, paresthesias, recurrent falls MSK: as per HPI All other systems reviewed and are unremarkable except noted above Physical Exam Exam Exam: Vital signs reviewed Physical Examination CONSTITUITIONAL Patient alert and cooperative. Well appearing and in no apparent painful distress MSK Hands * Right Hand: Able to make a fist. No swelling or tenderness to palpation of the MCPs, PIPs or DIPs. . * Left Hand: Able to make a fist. No swelling or tenderness to palpation of the MCPs, PIPs or DIPs. * Mild Herbedens nodes noted bilaterally Wrists * Right Wrist: Full ROM to flexion and extension. No swelling or TTP * Left Wrist: Full ROM to flexion and extension. No swelling or TTP Elbows * Right Elbow: Full ROM. No swelling or TTP. No TTP of the medial epicondyle. TTP of the lateral epicondyle * Left Elbow: Full ROM. No swelling or TTP. No TTP of the medial epicondyle. TTP of the lateral epicondyle Shoulders * Right shoulder: Slightly decreased ROM. No swelling noted. No TTP of the AC joint. TTP of the subacromial bursa. No TTP of the posterior shoulder * Left shoulder: Slightly decreased ROM. No swelling noted. No TTP of the AC joint. No TTP of the subacromial bursa. No TTP of the posterior shoulder Knees * Right knee: Full ROM. No swelling noted. No TTP of the knee joint line. No TTP of pes anserine bursa * Left knee: Full ROM. No swelling noted. No TTP of the knee joint line. No TTP of pes anserine bursa. * Crepitations felt bilaterally Ankles * Right ankle: Good ankle dorsiflexion and plantar flexion. No swelling. No TTP of the ankle joint * Left ankle: Good ankle dorsiflexion and plantar flexion. No swelling. No TTP of the ankle joint Feet * Right foot: Negative squeeze test * Left foot: Negative squeeze test Tender points? * No tenderness to palpation of the bilateral trapezius, supraspinatus, anterior costochondral junctions, bilateral suboccipital muscle insertions SKIN No rashes Vital Signs: Last Vital Signs Pulse 81 01/17/25 10:33 BP 118/76 01/17/25 10:33 Pulse Ox 95 01/17/25 10:33 Oxygen Delivery Method Room Air 01/17/25 10:33 BMI result Body Mass Index 26.7 Office Procedures AMB Joint Injection/Aspiration Joint Injection/Aspiration Details: Procedure was explained to the patient and informed consent was obtained. ? Risks associated with the procedure were discussed with the patient including but not limited to bleeding, infection, drug reactions and reactions to the topical anesthetic. Patient made aware of signs to look out for infectious complications. The area of interest was identified and confirmed with patient. ?This was subsequently cleaned with chlorhexidine x 2. ? The area was then anesthetized using ethyl chloride spray. 40 mg Kenalog with 1 cc 1% lidocaine was injected without issue. ?Minimal to no bleeding. ?Patient tolerated procedure. Primary Site: right shoulder (right subacromial bursa) Prep: site was prepped using aseptic technique and ethochloride spray was applied Injected: 40 mg of, Kenalog, with 1 mL of, 1% plain lidocaine and in the subcro mial space Procedure: The patient tolerated the procedure well Coding 91205 - Glenohumeral/Tronchanteric Bursa/Intraarticular Procedure code (CPT) selection complete Office Meds lidocaine (PF) 10 mg/mL (1 %) injection solution Performing Provider: Gemma Muse MD Performing Location[place] [facility] Administered by: Misty Quiroz RN on 01/17/25 11:18 Dose Route Admin Location Dispensed Lot Number Expiration Date [facility] Band Master 1 mL Infiltration right subacromial bursa 2 mL [id number] 07/29/26 6 3323-492-04 [employer] Total Dispensed Waste 2 mL 50 % Kenalog 40 mg/mL suspension for injection Performing Provider: Gemma Muse MD Performing Location: [facility] Administered by: Misty Quiroz RN on 01/17/25 11:18 Dose Route Admin Location Dispensed Lot Number Expiration Date [facility] Band Master 40 mg intrabursal right subacromial bursa 1 mL [id number] 09/28/26 7 2460-4947-1 [employer] Total Dispensed Waste 1 mL 0 % Results Reviewed Results Reviewed: Laboratory Tests 08/02/24 12/31/24 11:05 11:22 WBC 7.4 RBC 4.10 L Hgb 11.8 L Hct 36.0 L Plt Count 270 ESR 19 Sodium 142 Potassium 4.3 Chloride 107 Carbon Dioxide 30 H BUN 17 H Creatinine 0.70 AST 19 ALT 14 C-Reactive Protein 0.26 Laboratory Tests 02/16/24 11:37 Rheumatoid Factor < 13.0 Cycl Citrul Peptide IgG <16 Laboratory Tests 12/31/24 11:22 Hepatitis A IgM Ab Nonreactive Hep Bs Antigen Negative Hep Bs Antibody NONREACTIVE Hep B Core Total Ab Nonreactive Hepatitis C Ab (EIA) Nonreactive TB Test (T-Spot) Com Negative Assessment & Plan Assessment & Plan (1) Seronegative rheumatoid arthritis: Comment: Methotrexate August 2018-present Added Humira: January 2019- present Code(s): M06.00 - Rheumatoid arthritis without rheumatoid factor, unspecified site Category: Medical Plan: #Seronegative RA Patient with seronegative rheumatoid arthritis currently in remission but this remission is confounded by osteoarthritis and fibromyalgia. I currently think her pain is related to fibromyalgia/osteoarthritis not her rheumatoid arthritis. We will continue her methotrexate and Humira at current doses. No escalation of therapy today. Plan - Humira 40mg SC every 2 weeks - Methotrexate 20mg every week - Folic acid 1mg daily - RTC 6 months - Labs before next visit: CBC, CMP, ESR, CRP (2) Fibromyalgia: Code(s): M79.7 - Fibromyalgia Category: Medical Plan: #Fibromyalgia Doing well on gabapentin and tolerating same s/p steroid injection for R subacromial bursitis Plan - Continue gabapentin 300mg nightly - Tramadol 50mg bid - Encouraged daily stretching and activity (3) CHANDRAKANT positive: Code(s): R76.8 - Other specified abnormal immunological findings in serum Category: Medical Plan: #CHANDRAKANT positive Patient with CHANDRAKANT positive without signs or symptoms of an undifferentiated connective tissue disease currently being treated for seronegative rheumatoid arthritis. 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 Limit alcohol and avoid Bactrim ? 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 terminal plant operator use of Tramadol Isidoro Esparza Discussed proper use of tramadol for the management of osteoarthritis and fibromyalgia pain (7) Adalimumab (Humira) long-term use: Code(s): Z79.620 - petroleum terminal plant operator (current) use of immunosuppressive biologic Category: Medical Plan: #Long-term Use of TNF Inhibitors: Humira Discussed with the patient the benefits and risks of TNF inhibitors for the management of the rheumatic condition Benefits include reduce pain, maintenance of remission and reduction of flares as well as ?progression of the disease Risks include injection sites/infusion reactions, serious infections (such as bacterial infections, opportunistic infections), malignancy, delaminating syndromes, autoimmune phenomena, CHF exacerbations, palmar plantar psoriasis and cytopenias Recommended rotating injection sites, and holding medication during and for up to 1 week after resolution of a febrile illness or open skin wound Plan I spent 35 minutes reviewing the record and labs, seeing the patient, discussing the treatment plan and documenting in the medical record Orders: Orders Complete Blood Count Auto Diff 6 Months Z. - Other assisted (current) drug therapy AMB Joint Injection/Aspiration Today M75.50 - Bursitis of unspecified shoulder Comprehensive Met. Panel 6 Months Z. - Other assisted (current) drug therapy C Reactive Protein 6 Months Z. - Other continuous churn buttermaker (current) drug therapy Erythrocyte Sedimentation Rate 6 Months Z. - Other continuous churn buttermaker (current) drug therapy Medications: New diclofenac sodium 1% (Arthritis Pain (diclofenac)) apply to lateral elbows 4 times a day 2 grams topical QID 100 grams 5RF M77.11 - Lateral epicondylitis, right elbow, M77.12 - Lateral epicondylitis, left elbow Refilled adalimumab (Humira(CF) Pen) 40 mg (0.4 mL) subcut Q2W 2 ea 4RF M06.00 - Rheumatoid arthritis without rheumatoid factor, unspecified site cholecalciferol (vitamin D3) (Vitamin D3) 25 mcg PO DAILY 60 caps 2RF E55.9 - Vitamin D deficiency, unspecified gabapentin Take 1 tablet at night for 2 weeks, then increase as tolerated until 3 tablets at night. 300 mg (3 x 100 mg) PO BEDTIME 270 caps 1RF 90 days M06.00 - Rheumatoid arthritis without rheumatoid factor, unspecified site, M47.22 - Other spondylosis with radiculopathy, cervical region, M47.26 - Other spondylosis with radiculopathy, lumbar region, M79.7 - Fibromyalgia, R76.8 - Other specified abnormal immunological findings in serum, Z51.81 - Encounter for therapeutic drug level monitoring, Z79.899 - Other continuous churn buttermaker (current) drug therapy baclofen 10 mg PO BID PRN 60 tabs 4RF for pain M54.9 - Dorsalgia, unspecified folic acid 1 mg PO DAILY 90 tabs 3RF M06.00 - Rheumatoid arthritis without rheumatoid factor, unspecified site methotrexate sodium 20 mg (8 x 2.5 mg) PO QWEEK 104 tabs 1RF 90 days M06.00 - Rheumatoid arthritis without rheumatoid factor, unspecified site tramadol 50 mg PO BID 180 tabs 1RF pain 90 days M54.9 - Dorsalgia, unspecified Coding Level of Care Code Est Pt Level 4 (69527) Complex EM visit Add On G2211 Diagnoses Seronegative rheumatoid arthritis M06.00 Fibromyalgia M79.7 CHANDRAKANT positive R76.8 Lateral epicondylitis of both elbows M77.11; M77.12 FDC methotrexate user Z79.899 Encounter for medication monitoring Z51.81 Adalimumab (Humira) long-term use Z79.620 CPT Codes Coding - Joint 7: 88790 - Glenohumeral/Tronchanteric Bursa/Intraarticular ([id number])
[2025-01-17 10:33] VITALS: BP 118/76; PULSE 81; O2SAT 95; BMI 26.7
== END 2025-01-17 11:09 | disposition home or self-care (01) ==
LOC: HO.RHES 10:23
PROVIDERS: PCP Physician Assistant; Visit Provider Student in an Organized Health Care Education/Training Program
DX: M06.09 Rheumatoid arthritis without rheumatoid factor, multiple sites (principal); M75.51 Bursitis of right shoulder; M79.7 Fibromyalgia; R76.8 Other specified abnormal immunological findings in serum; M77.11 Lateral epicondylitis, right elbow; M77.12 Lateral epicondylitis, left elbow; Z79.899 Other long term (current) drug therapy; Z51.81 Encounter for therapeutic drug level monitoring; Z79.620 Long term (current) use of immunosuppressive biologic
CPT/HCPCS: 20610; 99214

== ENCOUNTER → 2025-01-17 10:23 | Outpatient (BNVA) | payer MEDICAID, SELFPAY | PROVIDERS: PCP Physician Assistant; Visit Provider Student in an Organized Health Care Education/Training Program | DX: M06.09 Rheumatoid arthritis without rheumatoid factor, multiple sites (principal); M54.9 Dorsalgia, unspecified; M77.11 Lateral epicondylitis, right elbow; M77.12 Lateral epicondylitis, left elbow; M79.7 Fibromyalgia; R76.8 Other specified abnormal immunological findings in serum; Z79.899 Other long term (current) drug therapy; Z51.81 Encounter for therapeutic drug level monitoring; Z79.620 Long term (current) use of immunosuppressive biologic | CPT/HCPCS: 20610; 99212; J2003; J3301 ==